=== PATIENT | female | born 1965 | race Caucasian/White ===

== ENCOUNTER 2022-11-04 10:36 | Outpatient (RCR) | payer OTHER, SELFPAY | END 2022-12-01 15:28 | disposition home or self-care (01) | LOC: PT 10:36 | PROVIDERS: PCP Internal Medicine; Visit Provider Internal Medicine | DX: M25.519 Pain in unspecified shoulder (principal) | CPT/HCPCS: 20560; 20561; 97010; 97012; 97110; 97140; 97162; G0283 ==

== ENCOUNTER 2023-08-26 10:16 | Outpatient (OUT) | payer OTHER, SELFPAY ==
[2023-08-26 10:27] LABS: Basophils Absolute Auto 0.1 10^3/uL (0.0-0.1); Basophils Percent Auto 1.4 % (0.2-2.0); Eosinophils Absolute Auto 0.1 10^3/uL (0.0-0.7); Eosinophils Percent Auto 1.4 % (0.9-7.0); Hematocrit 39.5 % (36.0-48.0); Hemoglobin 13.2 g/dL (12.0-16.0); Lymphocytes Absolute Auto 2.1 10^3/uL (1.2-3.8); Lymphocytes Percent Auto 49.8 % (20.5-60.0); Mean Corpuscular HGB Conc 33.4 g/dL (29.9-35.2); Mean Corpuscular Hemoglobin 31.7 pg (26.7-34.0); Mean Platelet Volume 8.9 fL (9.5-13.5); Monocytes Absolute Auto 0.4 10^3/uL (0.3-0.8); Monocytes Percent Auto 9.4 % (1.7-12.0); Neutrophils Absolute Auto 1.6 10^3/uL (1.4-6.5); Platelet Count 248 10^3/uL (150-450); Red Blood Count 4.16 10^6/uL (4.20-5.40); Red Cell Distribution Width 11.9 % (11.0-15.0); White Blood Count 4.2 10^3/uL (4.0-11.0)
[2023-08-26 10:44] LABS: Alanine Aminotransferase 23 U/L (14-59); Albumin Globulin Ratio 1.3; Alkaline Phosphatase 68 U/L (46-116); Anion Gap 12.6; Aspartate Amino Transferase 16 U/L (15-37); BUN Creatinine Ratio 19.6; Bilirubin Total 0.5 mg/dL (0.2-1.0); Calcium 9.8 mg/dL (8.5-10.1); Carbon Dioxide 30.8 mmol/L (21.0-32.0); Chloride 102 mmol/L (98-107); Cholesterol 261 mg/dL (<=200); Estimated GFR (African America >60 (>=60); Estimated GFR (Non-African Ame 59 (>=60); Globulin 3.1 g/dL; Glucose 82 mg/dL (74-106); HDL Cholesterol 132 mg/dL (40-60); Potassium 4.4 mmol/L (3.5-5.1); Sodium 141 mmol/L (136-145); Total Protein 7.1 g/dL (6.4-8.2); Triglycerides 44 mg/dL (<=150); VLDL CHOLESTEROL 8.8 mg/dL
== END 2023-08-26 10:17 | disposition home or self-care (01) ==
LOC: LAB 10:16
PROVIDERS: PCP Internal Medicine; Visit Provider Internal Medicine
DX: Z00.00 Encounter for general adult medical examination without abnormal findings (principal)
CPT/HCPCS: 36415; 80053; 80061; 85025

== ENCOUNTER 2023-12-22 12:12 | Outpatient (RCR) | payer OTHER, SELFPAY | END 2023-12-22 15:26 | disposition home or self-care (01) | LOC: PT 12:12 | PROVIDERS: PCP Internal Medicine; Visit Provider Anesthesiology | DX: M54.50 Low back pain, unspecified (principal) | CPT/HCPCS: 97110; 97140; 97162 ==

== ENCOUNTER 2025-02-14 07:32 | Outpatient (OUT) | payer OTHER, SELFPAY ==
--- OUTSIDE RECORDS SUMMARY | 2025-02-14 07:34 | XMS_ITS | Encounter Summary ---
Author Organization [facility] Address [address] [place] [address] Care Team Providers Care Editor Publications Name Role Phone Heath Jacob DO Primary Care Provider [phone] Heath Jacob DO Primary Care Provider [phone] Encounter Details Date Type Department Care Team (Late Contact Info) Description 05/03/2023 Abstract [facility] [address] [facility] [address] [place] [id number] Blanche Vu DO [address] [facility] [address] [place] [address] Social History Tobacco Use Types Packs/Day Years Used Date Smoking Tobacco: Never Smokeless Tobacco: Never Alcohol Use Standard Drinks/Week Comments Yes 0 (1 standard drink = 0.6 oz pure alcohol) caffeine: 1-2 cups per day coffee AUDIT-C Answer Date Recorded Q1: How often do you have a drink containing alc ohol? 2-4 times a month 04/29/2023 Q2: How many drinks containi ng alcohol do you have on a typical day when you are drinking? 1 or 2 04/29/2023 Q3: How often do you have si x or more drinks on one occasion? Never 04/29/2023 Comments Unknown Sex and Gender Information Value Date Recorded Sex Assigned at Not on file Legal Sex Female 6:39 PM EDT Gender Identity Not on file Sexual Orientation Not on file documented as of this encounter Plan of Treatment Upcoming Encounters Date Type Department Care Team (Late Contact Info) Description 03/03/2025 8:00 AM EDT Office Visit [facility] [address] [place] [address] [address] [place] [address] Filiberto Blue MD [address] [place] [address] 05/22/2025 3:15 PM EST Office Visit [facility] [address] [place] [id number] Blanche Vu DO [address] [place] [address] documented as of this encounter Visit Diagnoses Not on filedocumented in this encounter Care Teams Editor Publications Relationship Specialty Start Date End Date Heath Jacob DO PCP - General Internal Medicine 05/12/23 12/01/24 Heath Jacob DO [address] [place] [address] PCP - General Internal Medicine 12/02/24 documented as of this encounter
--- OUTSIDE RECORDS SUMMARY | 2025-02-14 07:34 | XMS_ITS | Clinical Summary ---
Author Organization [facility] Address [address] [facility] [address], [address] [place] [address] Care Team Providers Care Rn Anesthesiology Name Role Phone Heath Jacob DO Primary Care Provider [phone] Allergies Active Allergy Reactions Criticality Noted Date Comments Other 03/13/2020 MULTIPLE TOPICAL CREAMS Sulfa Antibiotics 03/13/2020 Medications ALPRAZolam (XANAX) 1 MG tablet Take 1 mg by mouth nightly as needed for Sleep. Active venlafaxine (EFFEXOR) 75 MG tablet Take 75 mg by mouth 3 times daily Active liothyronine (CYTOMEL) 5 MCG tablet Take 5 mcg by mouth daily Active Family History Medical History Relation Name Comments Arthritis Father Cancer Father Coronary Art Dis Father Diabetes Father Heart Disease Father High Blood Pressure Father Arthritis Mother Cancer Mother Relation Name Status Comments Father Mother Social History Tobacco Use Types Packs/Day Years Used Date Smoking Tobacco: Never Assessed Smokeless Tobacco: Never Comments Unknown Sex and Gender Information Value Date Recorded Sex Assigned at Not on file Legal Sex Female 10:24 AM EDT Gender Identity Not on file Sexual Orientation Not on file Last Filed Vital Signs Vital Sign Reading Time Taken Comments Blood Pressure - - Pulse - - Temperature 36.2 C (97.1 F) 06/12/2020 3:47 PM EST Respiratory Rate - - Oxygen Saturation - - Inhaled Oxygen Concentration - - Weight 54.4 kg (120 lb) 06/12/2020 3:47 PM EST Height 162.6 cm (5' 4 ) 06/12/2020 3:47 PM EST Body Mass Index 20.6 06/12/2020 3:47 PM EST Plan of Treatment Not on file Care Teams Rn Anesthesiology Relationship Specialty Start Date End Date Heath Jacob DO PCP - General Internal Medicine 03/13/20
--- OUTSIDE RECORDS SUMMARY | 2025-02-14 07:34 | XMS_ITS | CCD ---
Author Organization [facility] Team Providers Care Senior Benefits Manager Name Role Phone Mana Patino Unavailable Daly Kline Unavailable HEATH JACOB Primary Care Physician Heath Jacob Unavailable NOHEMI, DR ROWE Primary Care Unavailable NOHEMI, DR ROWE Admitting Unavailable BALL, DR ROWE Attending Unavailable BALL, DR ROWE Primary Care Unavailable BALL, DR ROWE Admitting Unavailable BALL, DR ROWE Attending Unavailable BALL, DR ROWE Consulting Unavailable ZIEBER, DR JOHNNY Mccabe Consulting Unavailable NOHEMI, DR RWOE Admitting Unavailable BALL, DR ROWE Attending Unavailable BALL, DR ROWE Consulting Unavailable BALL, DR ROWE Primary Care Unavailable BALL, DR ROWE Primary Care Unavailable BALL, DR ROWE Admitting Unavailable BALL, DR ROWE Attending Unavailable BALL, DR ROWE Consulting Unavailable NOHEMI, DR ROWE Primary Care Unavailable NGA, BLANCHE Admitting Unavailable RINNICKO, BLANCHE Attending Unavailable RINNICKO, BLANCHE Consulting Unavailable WILL, LEONARD Admitting Unavailable BALL, DR ROWE Primary Care Unavailable WILL, LEONARD Attending Unavailable WILL, LEONARD Consulting Unavailable NOHEMI, DR ROWE Primary Care Unavailable NOHEMI, DR ROWE Admitting Unavailable BALL, DR ROWE Attending Unavailable BALL, DR ROWE Consulting Unavailable Tyson Delgado Unavailable DO Heath Jacob Primary Care Provider MD Tyson Delgado Attending Provider DO Heath Jacob Primary Care Provider MD Tyson Delgado Attending Provider Heath Jacob Primary Care Unavailable Tyson Delgado Admitting Unavailable Tyson Delgado Attending Unavailable Tyson Delgado Admitting Unavailable Tyson Delgado Attending Unavailable Heath Jacob Primary Care Unavailable NohemiHeath Primary Care Unavailable Tyson Delgado Admitting Unavailable Tyson Delgado Attending Unavailable Heath Jacob DO Primary Care Provider Heath Jacob DO Primary Care Provider BLANCHE VU Referring Unavailable FILIBERTO AYALA Attending Unavailable FILIBERTO AYALA Attending Unavailable Heath Jacob DO Primary Care Provider Heath Jacob DO Attending Provider Soumya Berumen APRN Attending Provider Allergies Allergy Classification Reported Allergen(s) Allergy Type Date of Onset Reaction(s) Facility (20 sources) Diclofenac Drug Allergy 05-08-20 23 [facility] (20 sources) Sulfamethoxazole / Trimethoprim; Translations: [sulfamethoxazole-t rimethoprim] Drug Allergy 02-07-20 15 [facility] Other (2 sources) Adhesive bandage Drug allergy (disorder) 02-01-[address] [facility] (2 sources) Gluten Drug allergy (disorder) 02-01-[address] [facility] (2 sources) Sulfamethoxazole / Trimethoprim Drug Allergy 02-01-[address] [facility] (8 sources) patient allergy list reviewed by nurse or physicia Propensity to adverse reactions 01-05-20 19 Comment:[facility] Other (14 sources) Substance with sulfonamide structure and antibacterial mechanism of action (substance) Drug allergy 03-13-20 20 [facility] Other (9 sources) corn extract; Translations: [corn] Drug Allergy 05-07-20 21 Unknown Reaction [facility] (9 sources) Sulfamethoxazole; Translations: [sulfamethoxazole] Drug Allergy 05-07-20 21 [facility] (9 sources) Trimethoprim; Translations: [trimethoprim] Drug Allergy 05-07-20 21 [facility] (15 sources) Wheat preparation; Translations: [wheat] Drug Allergy 05-07-20 21 [facility] (9 sources) bee venom protein (honey bee); Translations: [bee venom protein (honey bee)] Allergy to substance 05-07-20 21 swelling & pain [facility] (1 source) Diclofenac Drug Allergy 06-09-19 [facility] (6 sources) Sulfonamides (Antibiotic) Drug allergy (disorder) 06-09-19 Unknown Reaction [facility] (6 sources) celecoxib Drug Allergy 03-29-20 05 [facility] (6 sources) [place] Drug Allergy 05-08-20 Other [facility] (6 sources) Latex Propensity to adverse reactions 03-29-20 05 [facility] (6 sources) nabumetone Drug Allergy 05-08-20 GI intolerance [facility] (6 sources) Other Allergy to substance 05-08-20 Other [facility] Medications Current Medications Medication Drug Class(es) Dates Sig (Normalized) Sig (Original) [id number] 200 actuat albuterol 0.09 mg/actuat metered dose inhaler (7 sources) beta2-Adrenergic Agonist Start: 05-21-2021 take 2 puff(s) by inhalation four times daily as needed Albuterol Sulfate HFA 108 (90 Base) MCG/ACT 2 puffs Inhalation qid prn May, Active amoxicillin 500 mg oral capsule (6 sources) Penicillin-class Antibacterial Start: 06-08-2022 take 1 capsule by mouth every eight hours Amoxicillin 500 MG 1 capsule Orally three times a day for 10 day(s) Jun, Active bimatoprost 0.3 mg/ml ophthalmic solution (20 sources) Prostaglandin Analog Start: 07-15-2022 take 1 drop(s) into the eye(s) once daily in the evening Start: 07-15-2022 take 1 drop(s) into the eye(s) once daily in the evening Start: 07-15-2022 take 1 drop(s) into the eye(s) once daily in the evening Start: 05-07-2021 End: 10-04-2023 take 0.03 drop(s) into the eye(s) once daily at bedtime Bimatoprost 0.03 % drops Discontinued 1 DROPS EYE-BOTH Daily at bedtime May 07, 2021 1:00am October 04, 2023 6:40pm Start: 05-07-2021 End: 10-04-2023 take 0.03 drop(s) into the eye(s) once daily at bedtime Bimatoprost 0.03 % drops Discontinued 1 DROPS EYE-BOTH Daily at bedtime May 07, 2021 1:00am October 04, 2023 6:40pm Start: 05-07-2021 End: 10-04-2023 take 1 drop(s) into the eye(s) once daily at bedtime Bimatoprost Discontinued 1 DROPS EYE-BOTH Daily at bedtime May 07, 2021 1:00am October 04, 2023 6:40pm calcium carbonate 1500 mg oral tablet (8 sources) Start: 05-07-2021 Calcium Carbonate (Calcium 600) 600 mg calcium (1,500 mg) Tablet Active 1200 MG PO Twice daily May 07, 2021 1:00am Complies with drug therapy DIGESTIVE ENZYMES PO (5 sources) take 1 capsule by mouth in the morning DIGESTIVE ENZYMES PO Take 1 capsule by mouth in the morning and 1 capsule before bedtime. Active escitalopram 10 mg oral tablet (2 sources) Serotonin Reuptake Inhibitor take 1 tablet by mouth every twenty-four hours Lexapro 10 MG 1 tablet Orally Once a day Active Estradiol (4 sources) Estrogen Start: 12-01-2021 estradiol Refills(s) 0 Start Date: 12/01/21 Status: Ordered End: 09-26-2024 estradiol (Estrace) 1 MG tab let 1 (one) time each day at the same time 09/26/2024 Discontinued (Med list cleanup) Hormone Cream Base (HRT Crea m) cream (5 sources) End: 12-02-2024 Hormone Cream Base (HRT Crea m) cream 1 Application Daily 12/02/2024 Discontinued (Med list cleanup) Hormone Cream Ba se (HRT Cream) cream 1 Application Daily Active Hormone Cream Base - (9 sources) Hormone Cream Ba se - as directed Active liothyronine sodium 0.005 mg oral tablet (12 sources) l-Triiodothyron ine Start: 12-02-2024 liothyronine (Cytomel) 5 MCG tablet Indications: Euthyroid sick syndrome Take 1 tablet in AM and 1 tablet in PM on an empty stomach. CORBY; Sigma or Greenstone brands only 180 tablet 12/02/2024 Active Start: 12-02-2024 liothyronine ( Cytomel) 5 MCG tablet Indications: Euthyroid sick syndrome Take 1 tablet in AM and 1 tablet in PM on an empty stomach. CORBY; Sigma or Greenstone brands only 180 tablet 12/02/2024 Active Start: 01-25-2019 End: 09-26-2024 take 1 tablet by mouth twice daily Liothyronine 5 mcg tablet Discontinued 5 MCG PO Twice daily January 25, 2019 12:00am May 07, 2021 6:13pm meloxicam 15 mg oral tablet (2 sources) Nonsteroidal Anti-inflammatory Drug Start: 09-21-2020 take 1 tablet by mouth every twenty-four hours Meloxicam 15 MG 1 tablet Orally Once a day for 30 day(s) Sep, Active Multivitamin preparation (6 sources) Start: 05-07-2021 take 1 tablet by mouth twice daily Multivitamin Active 1 TAB PO Twice daily May 07, 2021 12:00am Start: 05-07-2021 take 1 tablet by caterina th twice daily Multivitamin Active 1 TAB PO Twice daily May 07, 2021 1:00am Multivitamin Tablet (2 sources) Start: 05-07-2021 take 1 tablet by mouth twice daily Multivitamin Tablet Active 1 TAB PO Twice daily May 07, 2021 1:00am Complies with drug therapy Start: 05-07-2021 take 1 tablet by caterina th twice daily Multivitamin Tablet Active 1 TAB PO Twice daily May 07, 2021 1:00am paxlovid (300/100) 20 x 150 mg & 10 x 100mg tablet therapy pack (3 sources) Start: 06-09-2023 Paxlovid (300/ 100) 20 x 150 MG & 10 x 100MG as directed Orally bid for 5 days Jun, Active predniSONE 20 mg oral tablet (20 sources) Start: 02-03-2025 Prednisone 20 mg tablet Active 0 PO Daily February 03, 2025 12:00am Take 3 tabs x 3 days, 2 tabs x 3 days, 1 tab x 3 days orally daily; Complies with drug therapy Start: 09-15-2022 predniSONE 20 MG 1 tablet Orally tid w/ food x 3 days, then bid w/ food x 3 days, then qd w/ food x 3 days for 9 Sep, Not-Taking/PRN Start: 06-08-2022 take 1 tablet by caterina th every twelve hours predniSONE 20 MG 1 tablet Orally 2 times a day for 5 day(s) Jun, Not-Taking/PRN Start: 05-21-2021 take 1 tablet by caterina th every twelve hours predniSONE 20 MG 1 tablet Orally bid for 5 day(s) May, Active Probiotic Product (PROBIOTIC ADVANCED PO) (5 sources) take 1 capsule by mouth once daily Probiotic Product (PROBIOTIC ADVANCED PO) Take 1 capsule by mouth Daily Active 24 hr venlafaxine 37.5 mg extended release oral capsule (20 sources) Serotonin and Norepinephrine Reuptake Inhibitor Start: 05-03-20 End: 12-10-19 take 1 capsule by mouth once daily Venlafaxine 75 mg capsule,extended release 24hr Active 0 .ROUTE .COMPLEX December 09, 2024 8:39am TAKE ONE CAPSULE BY MOUTH ONCE DAILY Complies with drug therapy Start: 05-03-2024 take 1 capsule by mo uth once daily Venlafaxine 75 mg capsule,extended release 24hr Active 0 .ROUTE .COMPLEX May 03, 2024 10:50am TAKE ONE CAPSULE BY MOUTH ONCE DAILY Start: 03-22-2024 End: 12-09-2024 take 1 capsule by mouth once daily in the evening Venlafaxine 37.5 mg capsule,extended release 24hr Active 0 .ROUTE .COMPLEX December 09, 2024 8:39am TAKE ONE CAPSULE BY MOUTH EVERY EVENING Complies with drug therapy Start: 03-22-2024 take 1 capsule by mo uth once daily in the evening Venlafaxine 37.5 mg capsule,extended release 24hr Active 0 .ROUTE .COMPLEX March 22, 2024 10:17am TAKE ONE CAPSULE BY MOUTH EVERY EVENING Start: 05-07-2021 End: 03-22-2024 take 1 capsule by mouth once daily in the evening Venlafaxine 37.5 mg capsule,extended release 24hr Discontinued 37.5 MG PO Every evening September 25, 2023 1:44pm March 22, 2024 10:17am Start: 05-07-2021 End: 05-03-2024 take 1 capsule by mouth once daily in the morning Venlafaxine 75 mg capsule,extended release 24hr Discontinued 75 MG PO Every morning May 07, 2021 1:00am May 03, 2024 10:50am take 1 tablet by caterina th every twenty-four hours Venlafaxine HCl 37.5 MG 1 tablet with food Orally Once a day Active Venlafaxine HCl Active Vevye 0.1 % solution (2 sources) Start: 11-18-2024 Vevye 0.1 % so lution INSTILL ONE DROP IN BOTH EYES TWICE DAILYAPPROXIMATELY 12 HOURS APART 11/18/2024 Active Completed/Discontinued Medications Medication Drug Class(es) Dates Sig (Normalized) Sig (Original) acetaminophen 325 mg oral capsule (20 sources) take 1 capsule by mouth every six hours Tylenol 325 MG 1 capsule as needed Orally every 6 hrs Not-Taking/PRN ALPRAZolam 1 mg oral tablet (20 sources) Benzodiazepine Start: 01-25-2019 End: 07-26-2023 take 1 tablet by mouth once daily at bedtime Alprazolam 1 mg tablet Discontinued 1 MG PO Daily at bedtime 0 February 08, 2019 7:01am July 26, 2023 1:03pm Start: 03-17-2017 End: 11-15-2024 take 1 tablet by mouth twice daily Alprazolam 1 mg tablet Discontinued 1 MG PO Twice daily July 26, 2023 12:58pm December 12, 2023 8:51am Start: 03-17-2017 End: 01-25-2019 Alprazolam 1 mg tablet Disco ntinued March 17, 2017 12:00am January 25, 2019 11:10am Start: 07-28-2014 take 1 tablet by caterina th once daily as needed for sleep Xanax 0.5 mg Tab 0.5 mg = 1 tab(s), Oral, Daily, PRN Sleep, Refills(s) 0 Start Date: 07/28/14 Status: Ordered azithromycin 250 mg oral tablet (3 sources) Macrolide Antimicrobial Start: 10-04-2023 End: 12-15-2023 Azithromycin 250 mg tablet Discontinued 0 PO .COMPLEX October 04, 2023 12:00am December 15, 2023 10:36am For 250 mg dose pack: take 500 mg today (day 1), then 250 mg for 4 days (days 2-5) PO Start: 10-04-2023 End: 12-15-2023 Azithromycin Discontinued 0 PO .COMPLEX October 04, 2023 12:00am December 15, 2023 10:36am For 250 mg dose pack: take 500 mg today (day 1), then 250 mg for 4 days (days 2-5) PO benzonatate 200 mg oral capsule (3 sources) Non-narcotic Antitussive Start: 10-04-2023 End: 12-15-2023 take 1 capsule by mouth three times daily as needed for cough Benzonatate 200 mg capsule Discontinued 200 MG PO Three times daily as needed for cough 30 October 04, 2023 12:00am December 15, 2023 10:36am Bioidentical Progesterone Crea (8 sources) Start: 01-25-2019 End: 05-07-2021 Bioidentical Progesterone Crea Discontinued 1 APPLIC TOPICAL Daily at bedtime January 24, 2019 11:00pm May 07, 2021 5:16pm Start: 01-25-2019 End: 05-07-2021 Bioidentical Progesterone Cr ea Discontinued 1 APPLIC TOPICAL Daily at bedtime January 25, 2019 12:00am May 07, 2021 6:16pm celecoxib 200 mg oral capsule (10 sources) Nonsteroidal Anti-inflammatory Drug Start: 07-26-2023 End: 07-28-2023 take 1 capsule by mouth once daily Celecoxib 200 mg capsule Discontinued 200 MG PO Daily July 26, 2023 1:00am July 28, 2023 10:11am Start: 05-24-2023 take 1 capsule by [facility] every twenty-four hours Celecoxib 200 MG 1 capsule with food Orally Once a day for 30 days G89.29 Chronic pain May, Active citalopram 40 mg oral tablet (8 sources) Serotonin Reuptake Inhibitor Start: 01-25-2019 End: 05-07-2021 take 1 tablet by mouth once daily at bedtime Citalopram 40 mg tablet Discontinued 40 MG PO Daily at bedtime January 25, 2019 12:00am May 07, 2021 6:14pm diflorasone diacetate 0.0005 mg/mg topical ointment (8 sources) Corticosteroid Start: 07-28-2023 End: 02-03-2025 Diflorasone 0.05 % ointment Discontinued 1 APPLIC TOPICAL Twice daily 60 90 August 09, 2023 4:10pm February 03, 2025 1:58pm docusate sodium 100 mg oral capsule (8 sources) Start: 02-08-2019 End: 05-07-2021 take 1 capsule by mouth twice daily as needed for constipation Docusate Sodium (Colace) 100 mg capsule Discontinued 100 MG PO Twice daily as needed for constipation February 08, 2019 6:59am May 07, 2021 6:13pm etodolac 400 mg oral tablet (13 sources) Nonsteroidal Anti-inflammatory Drug Start: 09-15-2022 take 1 tablet by mouth every twelve hours Etodolac 400 MG 1 tablet with food Orally Twice a day Sep, Not-Taking/PRN fluconazole 150 mg oral tablet (20 sources) Azole Antifungal Start: 10-04-2023 End: 11-15-2024 Fluconazole 150 mg tablet Discontinued 150 MG PO Q3D 2 0 October 04, 2023 12:00am November 15, 2024 12:03pm october repeat x 1 in 3 days if needed Start: 06-08-2022 Diflucan 150 M G 1 tablet Orally once for 2 days Take the first tablet at the onset of symptoms of yeast infection. Take the second tablet in 3 days Jun, Not-Taking/PRN glucosamine sulfate 500 mg oral capsule (2 sources) End: 09-26-2024 Glucosamine 500 MG capsule Glucosamine 09/26/2024 Discontinued (Med list cleanup) ibuprofen 600 mg oral tablet (20 sources) Nonsteroidal Anti-inflammatory Drug Start: 05-11-2021 End: 07-26-2023 take 1 tablet by mouth every six hours as needed for pain Ibuprofen 600 mg tablet Discontinued 600 MG PO Q6H as needed for pain May 11, 2021 1:00am July 26, 2023 1:03pm Start: 02-08-2019 End: 05-07-2021 take 1 tablet by mouth every six hours as needed for pain Ibuprofen 600 mg tablet Discontinued 600 MG PO Q6H as needed for pain February 08, 2019 12:00am May 07, 2021 6:13pm take 1 tablet by caterina th three times daily at mealtime as needed Ibuprofen 400 MG 1 tablet with food or milk as needed Orally Three times a day Active L. Acidophilus-L. Rhamnosus (Digestive Health Probiotic) 10 billion cell Capsule (8 sources) Start: 05-07-2021 End: 07-26-2023 take 1 capsule by mouth twice daily L. Acidophilus-L. Rhamnosus (Digestive Health Probiotic) 10 billion cell Capsule Discontinued 1 CAP PO Twice daily May 07, 2021 1:00am July 26, 2023 1:02pm Start: 05-07-2021 End: 07-26-2023 take 1 capsule by mouth twice daily L. Acidophilus-L. Rhamnosus (Digestive Health Probiotic) 10 billion cell Capsule Discontinued 1 CAP PO Twice daily May 07, 2021 12:00am July 26, 2023 12:02pm Start: 05-07-2021 take 1 capsule by mo uth twice daily L. Acidophilus-L. Rhamnosus (Digestive Health Probiotic) 10 billion cell Capsule Active 1 CAP PO Twice daily May 07, 2021 12:00am Start: 05-07-2021 take 1 capsule by mo uth twice daily L. Acidophilus-L. Rhamnosus (Digestive Health Probiotic) 10 billion cell Capsule Active 1 CAP PO Twice daily May 07, 2021 1:00am levothyroxine sodium 0.025 mg oral tablet (20 sources) l-Thyroxine Start: 05-04-2023 End: 11-15-2024 take 1 tablet by mouth once daily Levothyroxine 25 mcg tablet Discontinued 25 MCG PO Daily 90 90 July 28, 2023 6:22pm November 15, 2024 12:03pm take 1 tablet by [facility] once daily in the morning Levothyroxine Sodium 25 MCG 1 tablet in the morning on an empty stomach Orally Once a day Active Lidocaine (10 sources) Antiarrhythmic, Amide Local Anesthetic Start: 11-28-2022 Lidocaine Nov, 20 mg magnesium oxide 500 mg oral capsule (4 sources) Start: 10-02-2024 End: 10-02-2024 Magnesium 500 MG capsule 1 (one) time each day at the same time 10/02/2024 10/02/2024 End: 09-26-2024 Magnesium 500 MG capsule 1 ( one) time each day at the same time 09/26/2024 Discontinued (Med list cleanup) Misc Natural Products (ESTROVEN + ENERGY MAX STRENGTH PO) (2 sources) End: 09-26-2024 Misc Natural Products (ESTRO EMANUEL + ENERGY MAX STRENGTH PO) Estroven 09/26/2024 Discontinued (Med list cleanup) Multiple Vitamins-Minerals (MULTI COMPLETE PO) (4 sources) Start: 10-02-2024 End: 10-02-2024 Multiple Vitamins-Minerals ( MULTI COMPLETE PO) Multi Complete 10/02/2024 10/02/2024 End: 09-26-2024 Multiple Vitamins-Minerals ( MULTI COMPLETE PO) Multi Complete 09/26/2024 Discontinued (Med list cleanup) prasterone 6.5 mg vaginal insert (1 source) Start: 05-07-2021 End: 10-04-2023 Prasterone (Dhea) (Intrarosa ) 6.5 mg insert Discontinued 6.5 MG VAGINAL Daily at bedtime May 07, 2021 1:00am October 04, 2023 6:40pm Prasterone (Dhea) (Intrarosa ) 6.5 mg insert (7 sources) Start: 05-07-2021 End: 10-04-2023 Prasterone (Dhea) (Intrarosa ) 6.5 mg insert Discontinued 6.5 MG VAGINAL Daily at bedtime May 07, 2021 1:00am October 04, 2023 6:40pm Start: 05-07-2021 Prasterone (Dh ea) (Intrarosa) 6.5 mg insert Active 6.5 MG VAGINAL Daily at bedtime May 07, 2021 12:00am Start: 05-07-2021 Prasterone (Dh ea) (Intrarosa) 6.5 mg insert Active 6.5 MG VAGINAL Daily at bedtime May 07, 2021 1:00am pyridoxine hydrochloride 25 mg oral tablet (8 sources) Start: 05-07-2021 End: 02-03-2025 take 1 tablet by mouth twice daily Pyridoxine (Vitamin B6) (Vitamin B-6) 25 mg Tablet Discontinued 25 MG PO Twice daily May 07, 2021 1:00am February 03, 2025 1:58pm Sod Picosulf-Mag Ox-Citric Ac (1 source) Start: 01-29-2025 End: 02-03-2025 Sod Picosulf-Mag Ox-Citric Ac (Clenpiq) 10 mg-3.5 gram- 12 gram/175 mL solution Discontinued 175 ML PO .COMPLEX 350 January 29, 2025 12:00am February 03, 2025 1:58pm Follow instructions given by office traMADol hydrochloride 50 mg oral tablet (16 sources) Opioid Agonist Start: 05-11-2021 End: 07-26-2023 take 1 tablet by mouth every six hours as needed for pain Tramadol 50 mg tablet Discontinued 50 MG PO Q6H as needed for pain 22 12May 11, 2021 1:00am July 26, 2023 1:02pm Start: 02-08-2019 End: 05-07-2021 take 1 tablet by mouth every four to six hours as needed for pain Tramadol 50 mg tablet Discontinued 50 MG PO EVERY 4-6 HOURS as needed for pain 01 01February 08, 2019 12:00am May 07, 2021 6:13pm tretinoin 0.5 mg/ml topical lotion (4 sources) Retinoid Start: 10-02-2024 End: 10-02-2024 Tretinoin (Altreno) 0.05 % lotion Indications: Rhytides Apply thin layer to face at bedtime 45 g 11 10/02/2024 10/02/2024 Start: 05-08-2023 End: 09-26-2024 Tretinoin (Altreno) 0.05 % l otion Indications: Rhytides Apply thin layer to face at bedtime 45 g 11 05/08/2023 09/26/2024 Discontinued (Med list cleanup) triamcinolone acetonide 40 mg/ml injectable suspension (20 sources) Corticosteroid Start: 09-15-2022 Triamcinolone Acetonide 0.5 % 1 application Externally Twice a day for 30 days Sep, Not-Taking/PRN Start: 07-22-2022 Kenalog-40 Feb, 40 mg Start: 04-02-2020 Kenalog -40 mg Mar, 60 mg Triamcinolone Ac etonide 0.5 % 1 application Externally Two times a Week Not-Taking/PRN Triamcinolone Ac etonide 0.5 % 1 application Externally Two times a Week Not-Taking vitamin b6 100 mg oral tablet (5 sources) take 1 tablet by caterina th every twenty-four hours Vitamin B6 100 MG 1 tablet Orally Once a day Not-Taking/PRN Vitamin B6 100 MG (16 sources) take 1 tablet by caterina th once daily Vitamin B6 100 MG 1 tablet Orally Once a day Not-Taking take 1 tablet by mouth once dwayne y Vitamin B6 100 MG 1 tablet Orally Once a day Active Problems Active Problems Problem Classification Problem Date Documented Da te Episodic/Chronic Abdominal pain (8 sources) Epigastric pain; Translations: [Epigastric pain] Episodic Acute bronchitis (8 sources) Acute bronchitis; Translations: [Acute bronchitis due to other specified organisms] Episodic Adjustment disorders (6 sources) Stress; Translations: [Reaction to severe stress, unspecified] Onset: 09-26-2024 09-26-2024 Chronic Alcohol-related disorders (13 sources) Alcohol abuse; Translations: [Alcohol abuse, uncomplicated] Chronic Allergic reactions (20 sources) Allergic contact dermatitis caused by chemical; Translations: [Allergic contact dermatitis due to other chemical products] Onset: 12-08-2014 10-02-2024 Episodic Anxiety disorders (20 sources) Generalized anxiety disorder; Translations: [Generalized anxiety disorder] Chronic Asthma (20 sources) Mild intermittent asthma; Translations: [Mild intermittent asthma, uncomplicated] Chronic Calculus of urinary tract (3 sources) Kidney stone; Translations: [Calculus of kidney] Onset: 12-01-2021 Episodic Chronic obstructive pulmonary disease and bronchiectasis (1 source) Bronchitis, not specified as acute or chronic Episodic Esophageal disorders (8 sources) Esophageal reflux finding; Translations: [Esophageal reflux] Onset: 08-29-2014 Chronic Genitourinary symptoms and ill-defined conditions (20 sources) Microscopic hematuria; Translations: [Asymptomatic microscopic hematuria] Onset: 12-01-2021 Resolved: 12-14-2020 Episodic Headache; including migraine (20 sources) Chronic migraine without aura, non-refractory; Translations: [Migraine without aura, not intractable, without status migrainosus] 07-26-2023 Chronic Heart valve disorders (10 sources) Cardiac murmur, unspecified; Translations: [O/E - cardiac murmur] Onset: 02-28-2022 Episodic Immunizations and screening for infectious disease (10 sources) Contact with and (suspected) exposure to other viral communicable diseases; Translations: [Vaccination given] Onset: 03-22-2021 Resolved: 05-21-2021 Episodic Malaise and fatigue (7 sources) Fatigue; Translations: [Chronic fatigue, unspecified] Onset: 11-25-2024 10-02-2024 Chronic Menopausal disorders (20 sources) Menopausal and female climacteric states; Translations: [Menopause present] Onset: 06-12-2015 Chronic Mood disorders (20 sources) Mild recurrent major depression; Translations: [Major depressive disorder, recurrent, mild] Onset: 10-26-2018 07-26-2023 Chronic Neoplasms of unspecified nature or uncertain behavior (20 sources) Neoplastic disease; Translations: [Neoplasm of unspecified behavior of bone, soft tissue, and skin] Episodic Noninfectious gastroenteritis (2 sources) Inflammatory bowel disease; Translations: [Other specified noninfective gastroenteritis and colitis] 10-02-2024 Episodic Nonmalignant breast conditions (8 sources) Fibrocystic disease of breast; Translations: [Diffuse cystic mastopathy of unspecified breast] Chronic Nonspecific chest pain (12 sources) Chest pain, unspecified; Translations: [Chest pain] Onset: 02-24-2022 Episodic Osteoarthritis (20 sources) Osteoarthritis; Translations: [Unspecified osteoarthritis, unspecified site] 12-01-2021 Chronic Other connective tissue disease (1 source) Other shoulder lesions, right shoulder Episodic Other connective tissue disease (14 sources) Enthesopathy of hip region; Translations: [Other bursitis of hip, left hip] Resolved: 12-27-2019 Episodic Other connective tissue disease (2 sources) Trochanteric bursitis, left hip Episodic Other connective tissue disease (3 sources) Trochanteric bursitis; Translations: [Trochanteric bursitis, left hip] 12-15-2023 Episodic Other connective tissue disease (6 sources) Posterior calcaneal exostosis; Translations: [Calcaneal spur, unspecified foot] Onset: 09-26-2024 09-26-2024 Episodic Other endocrine disorders (8 sources) Adrenal cortical hypofunction; Translations: [Unspecified adrenocortical insufficiency] Onset: 09-26-2024 09-26-2024 Chronic Other gastrointestinal disorders (8 sources) Celiac disease; Translations: [Celiac disease] Chronic Other gastrointestinal disorders (2 sources) Abdominal bloating; Translations: [Abdominal distension (gaseous)] 10-02-2024 Episodic Other lower respiratory disease (13 sources) Dyspnea on exertion; Translations: [Other forms of dyspnea] Episodic Other lower respiratory disease (8 sources) Dyspnea; Translations: [Other forms of dyspnea] Episodic Other nervous system disorders (20 sources) Chronic pain; Translations: [Other chronic pain] Onset: 09-26-2024 12-15-2023 Chronic Other nervous system disorders (20 sources) Bilateral carpal tunnel syndrome; Translations: [Carpal tunnel syndrome, bilateral upper limbs] 07-27-2023 Chronic Other nervous system disorders (20 sources) 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; Translations: [Lesion of ulnar nerve, bilateral upper limbs] Chronic Other nervous system disorders (5 sources) Other chronic pain; Translations: [Other chronic pain] Chronic Other nervous system disorders (8 sources) Mononeuritis; Translations: [Unspecified mononeuritis of lower limb] Onset: 11-08-2013 Chronic Other nervous system disorders (4 sources) Carpal tunnel syndrome; Translations: [Carpal tunnel syndrome, bilateral upper limbs] 07-27-2023 Chronic Other nervous system disorders (2 sources) Piriformis syndrome; Translations: [Lesion of sciatic nerve, left lower limb] 12-15-2023 Chronic Other nervous system disorders (1 source) Lesion of sciatic nerve, left lower limb; Translations: [Lesion of sciatic nerve] 12-15-2023 Chronic Other nervous system disorders (1 source) Left-sided piriformis syndrome; Translations: [Lesion of sciatic nerve, left lower limb] 12-15-2023 Chronic Other non-traumatic joint disorders (20 sources) Arthritis of hand; Translations: [Arthropathy, unspecified] Chronic Other non-traumatic joint disorders (20 sources) Shoulder pain; Translations: [Pain in unspecified shoulder] Episodic Other non-traumatic joint disorders (9 sources) Hip pain; Translations: [Pain in left hip] 12-15-2023 Episodic Other non-traumatic joint disorders (3 sources) Pain in left hip; Translations: [Pain in joint, pelvic region and thigh] Episodic Other screening for suspected conditions (not mental disorders or infectious disease) (19 sources) Blood chemistry abnormal; Translations: [Other specified abnormal findings of blood chemistry] Onset: 05-12-2018 Resolved: 09-13-2020 11-13-2024 Episodic Other skin disorders (1 source) Dyshidrosis [pompholyx] Episodic Other skin disorders (8 sources) Vesicular eczema of hands and/or feet; Translations: [Dyshidrosis [pompholyx]] Episodic Other skin disorders (8 sources) Alopecia; Translations: [Nonscarring hair loss, unspecified] Episodic Other skin disorders (5 sources) Vesicular eczema; Translations: [Dyshidrosis [pompholyx]] 07-26-2023 Episodic Other skin disorders (2 sources) Loss of hair; Translations: [Nonscarring hair loss, unspecified] 10-02-2024 Episodic Other skin disorders (2 sources) Wrinkled skin; Translations: [Other specified disorders of the skin and subcutaneous tissue] 10-14-2024 Episodic Other upper respiratory disease (19 sources) Seasonal allergy; Translations: [Other seasonal allergic rhinitis] Chronic Other upper respiratory disease (8 sources) Seasonal allergic rhinitis; Translations: [Other seasonal allergic rhinitis] Chronic Other upper respiratory infections (5 sources) Acute upper respiratory infection, unspecified; Translations: [Viral upper respiratory tract infection] Onset: 05-21-2021 Resolved: 05-21-2021 Episodic Otitis media and related conditions (1 source) Otitis media, unspecified, right ear Episodic Residual codes; unclassified (6 sources) Insomnia; Translations: [Other insomnia] Onset: 09-26-2024 09-26-2024 Chronic Residual codes; unclassified (8 sources) Requires influenza virus vaccination; Translations: [Need for prophylactic vaccination and inoculation, Influenza] Episodic Residual codes; unclassified (8 sources) History of laparoscopy; Translations: [Other specified postprocedural states] 05-11-2021 Episodic Comment on above: Problem List clean-u p per request of Phys. EHR Cmte Spondylosis; intervertebral disc disorders; other back problems (20 sources) Cervical disc disorder; Translations: [Cervical disc disorder, unspecified, unspecified cervical region] Onset: 01-09-2023 Chronic Spondylosis; intervertebral disc disorders; other back problems (19 sources) Thoracic and lumbosacral neuritis; Translations: [Thoracic or lumbosacral neuritis or radiculitis, unspecified] Onset: 03-09-2015 Episodic Sprains and strains (15 sources) Strain of muscle of left hip; Translations: [Strain of muscle, fascia and tendon of left hip, initial encounter] Onset: 10-26-2018 07-28-2023 Episodic Thyroid disorders (20 sources) Subclinical hypothyroidism; Translations: [Other specified hypothyroidism] Chronic Thyroid disorders (7 sources) Sick-euthyroid syndrome; Translations: [Sick-euthyroid syndrome] Onset: 11-25-2024 10-02-2024 Episodic Unclassified (2 sources) Asymptomatic microscopic hematuria 12-01-2021 Unclassified (1 source) Pain in left hip; Translations: [Pain in left hip] Onset: 05-05-2023 Unclassified (2 sources) Patient encounter status; Translations: [Z12.11 - Encounter for screening for malignant neoplasm of colon] Viral infection (9 sources) Disease caused by 2019-nCoV; Translations: [COVID-19] Past or Other Problems Problem Classification Problem Date Documented Da te Episodic/Chronic Acquired foot deformities (8 sources) Bunion; Translations: [Bunion] Onset: 05-12-2017 Episodic Administrative/social admission (4 sources) Encounter for pre-employment examination; Translations: [ENCOUNTER FOR PRE-EMPLOYMENT EXAM] Onset: 04-01-2022 Episodic Blindness and vision defects (8 sources) Visual impairment; Translations: [Unspecified visual loss] Resolved: 12-27-2019 Chronic Diseases of white blood cells (8 sources) Neutropenia; Translations: [Neutropenia, unspecified] Resolved: 09-13-2020 Chronic Hemorrhoids (8 sources) Residual hemorrhoidal skin tags; Translations: [Residual hemorrhoidal skin tags] Resolved: 12-14-2020 Episodic Joint disorders and dislocations; trauma-related (8 sources) Current tear of medial cartilage AND/OR meniscus of knee; Translations: [Other tear of cartilage or meniscus of knee, current] Onset: 11-10-2014 Episodic Other connective tissue disease (8 sources) Neuralgia; Translations: [Neuralgia and neuritis, unspecified] Onset: 10-05-2016 Episodic Other connective tissue disease (5 sources) Neuropathy; Translations: [Neuralgia and neuritis, unspecified] Onset: 10-05-2016 07-26-2023 Episodic Other endocrine disorders (4 sources) Endocrine disorder, unspecified; Translations: [ENDOCRINE DISORDER UNSPECIFIED] Onset: 08-06-2022 Episodic Other gastrointestinal disorders (8 sources) Heartburn; Translations: [Heartburn] Onset: 08-29-2014 Episodic Other lower respiratory disease (8 sources) Cough; Translations: [Cough, unspecified] Onset: 03-09-2015 Episodic Other non-traumatic joint disorders (3 sources) Pain in right shoulder; Translations: [Pain in right shoulder] Onset: 01-09-2023 Episodic Poisoning by nonmedicinal substances (8 sources) Toxic effect of venom; Translations: [Toxic effect of venom of bees, accidental (unintentional), initial encounter] Onset: 01-06-2019 Episodic Poisoning by other medications and drugs (8 sources) Poisoning by vitamin; Translations: [Poisoning by vitamins, accidental (unintentional), initial encounter] Resolved: 09-13-2020 Episodic Unclassified (1 source) Cough R05.9 Results Test Name Value Interpretation Reference Range Facility IRON AND TOTAL IRON BINDING CAPACITYon 11-17-2024 % SATURATION 36 % (calc) Normal 16-45 [facility] Comment on above: Order Comment: FASTI NG:NO FASTING: NO Performed By: #### [id number] #### [facility]/[place] [id number] [facility] [place], [place] Monkey Breeder: Ramirez Ureña M.D.,PhD #### [id number], [id number], [phone], [phone], [phone] #### [facility] [address], [address] [place] [address] Monkey Breeder: Chago Rodriguez MD IRON BINDING CAPACITY 326 mcg/dL (calc) Normal 250-450 [facility] Comment on above: Order Comment: FASTI NG:NO FASTING: NO Performed By: #### 9 [id number] #### [facility]/[address] [place], [place] Monkey Breeder: Ramirez Ureña M.D.,PhD #### [id number], [id number], [phone], [phone], 859 #### [facility] [address], [address] [place] [address] Monkey Breeder: Chago Rodriguez MD IRON, TOTAL 117 mcg/dL Normal 45-160 [facility] Comment on above: Order Comment: FASTI NG:NO FASTING: NO Performed By: #### [id number] #### [facility]/[address] [place], [place] Monkey Breeder: Ramirez Ureña M.D.,PhD #### [id number], [id number], [phone], [phone], 859 #### [facility] [place] [address] Monkey Breeder: Chago Rodriguez MD T3 REVERSE, LC/MS/MSon 11-17 T3 REVERSE, LC/MS/MS 15 ng/dL Normal 8-25 [facility] Comment on above: Result Comment: This test was developed and its analytical performance characteristics have been determined by [facility] [place], [place]. It has not been cleared or approved by the U.S. Food and Drug Administration. This assay has been validated pursuant to the CLIA regulations and is used for clinical purposes. Performed By: #### [id number] #### [facility]/[place] [id number] [facility] [place], [place] Monkey Breeder: Ramirez Ureña M.D.,PhD #### [id number], [id number], [phone], [phone], 859 #### [facility] [address], [address] [place] [address] Monkey Breeder: Cahgo Rodriguez MD T3, 11-17-2024 Free T3 [Mass/Vol] 2.8 pg/mL Normal 2.3-4.2 [facility] Comment on above: Performed By: #### 9 [id number] #### [facility]/[address] [place], [place] Monkey Breeder: Ramirez Ureña M.D.,PhD #### [id number], [id number], 899, 866, 859 #### [facility] [place] [address] Monkey Breeder: Chago Rodriguez MD T3, TOTAL11-17-2024 T3, TOTAL 82 ng/dL Normal 76-181 [facility] Comment on above: Performed By: #### 9 [id number] #### [facility]/[address] [place], [place] Monkey Breeder: Ramirez Ureña M.D.,PhD #### [id number], [id number], 899, 866, 859 #### [facility] [place] [address] Monkey Breeder: Chago Rodriguez MD T4, 11-17-2024 Free T4 [Mass/Vol] 1.3 ng/dL Normal 0.8-1.8 [facility] Comment on above: Performed By: #### 9 [id number] #### [facility] [address] [facility] [address] [place] Monkey Breeder: Ramirez Ureña M.D.,PhD #### [id number], [id number], 899, 866, 859 #### [facility] [address], [address] [place] [address] Monkey Breeder: Chago Rodriguez MD TSHon 11-17-2024 TSH Qn 0.77 m[IU]/L Normal 0.40-4.50 [facility] Comment on above: Performed By: #### 9 [id number] #### [facility] [address] [facility] [address] [place] Monkey Breeder: Ramirez Ureña M.D.,PhD #### [phone], [phone], 899, 866, 859 #### [facility] [address], [address] [place] [address] Monkey Breeder: Chago Rodriguez MD BI MAMMOGRAM SCREENING TOMOS YNTNELSONIS BILATERALon 08-02-2024 BI MAMMOGRAM SCREENING TOMOSYNTHESIS BILATERAL This is a summary report. The complete report is available in the patient's medical record. If you cannot access the medical record, please contact the sending organization for a detailed fax or copy. Examination: BI MAMMOGRAM SCREENING TOMOSYNTHESIS BILATERAL Clinical History: Breast Cancer Screening Technique: Screening digital mammography study of both breasts was performed with 2-D and 3-D tomosynthesis imaging. Study was compared to the prior exam dated 06/19/2023. Findings: There is no evidence of interval dominant spiculated mass, grouped microcalcifications, or skin thickening which would be suggestive of malignancy. A few benign-appearing calcifications are seen bilaterally. A partially visualized axillary lymph node is suggested on the right and appears grossly unremarkable. IMPRESSION: Impression: No specific evidence of malignancy seen in either breast. BIRADS 2 - Benign Findings DENSITY: The breasts are heterogeneously dense, which may obscure small masses. FOLLOW-UP: Routine Screening Mammogram ELECTRONICALLY SIGNED BY: Bill Almanzar M.D. Normal Not Available Basophils Auto (Bld) [#/Vol] on 08-26-2023 Basophils (Bld) [#/Vol] 0.1 10 3/uL 0.0-0.1 [facility] Basophils/100 WBC Auto (Bld) on 08-26-2023 Basophils/100 WBC (Bld) 1.4 % 0.2-2.0 [facility] Cholesterol in LDL Calc [Mas s/Vol]on 08-26-2023 Cholesterol in LDL [Mass/Vol] 121.0 mg/dL [facility] Comment on above: <100 mg/dl [id number] 0-129 mg/dl NEAR OR ABOVE WAQUQBC140-799 mg/dl BORDERLINE OBNU943-484 mg/dl HIGH>190 mg/dl VERY HIGH Cholesterol in VLDL Calc [Ma ss/Vol]on 08-26-2023 Cholesterol in VLDL [Mass/Vol] 8.8 mg/dL [facility] Eosinophils/100 WBC Auto (Bl d)on 08-26-2023 Eosinophils/100 WBC (Bld) 1.4 % 0.9-7.0 [facility] Erythrocyte distribution wid th Auto (RBC) [Ratio]on 08-26-2023 Erythrocyte distribution width (RBC) [Ratio] 11.9 % 11.0-15.0 [facility] Estimated glomerular filtrat ion rate (GFR) non- Americanon 08-26-2023 GFR/1.73 sq M.predicted among non-blacks MDRD (S/P/Bld) [Vol rate/Area] 59 mL/min/{1.73_m2} >=60 [facility] Globulin Calc (S) [Mass/Vol] on 08-26-2023 Globulin (S) [Mass/Vol] 3.1 g/dL [facility] Hematocrit Auto (Bld) [Volum e fraction]on 08-26-2023 Hematocrit (Bld) [Volume fraction] 39.5 % 36.0-48.0 [facility] Hemoglobin [Mass/volume] in Bloodon 08-26-2023 Hemoglobin (Bld) [Mass/Vol] 13.2 g/dL 12.0-16.0 [facility] Laboratory - Chemistry and C hemistry - challengeon 08-26-2023 Albumin [Mass/Vol] 4.0 g/dL 3.4-5.0 [facility] ALP [Catalytic activity/Vol] 68 U/L 46-116 [facility] ALT [Catalytic activity/Vol] 23 U/L 14-59 [facility] AST [Catalytic activity/Vol] 16 U/L 15-37 [facility] Bilirubin [Mass/Vol] 0.5 mg/dL 0.2-1.0 [facility] Calcium [Mass/Vol] 9.8 mg/dL 8.5-10.1 [facility] Chloride [Moles/Vol] 102 mmol/L 98-107 [facility] Cholesterol [Mass/Vol] 261 mg/dL <=200 [facility] Cholesterol in HDL [Mass/Vol] 132 mg/dL 40-60 [facility] Comment on above: > or =60 mg/dl - LOW CARDIOVASCULAR RISK<40 mg/dl - HIGH CARDIOVASCULAR RISK CO2 [Moles/Vol] 30.8 mmol/L 21.0-32.[address] [facility] Creatinine [Mass/Vol] 0.97 mg/dL 0.55-1.02 [facility] GFR/1.73 sq M.predicted MDRD (S/P/Bld) [Vol rate/Area] mL/min/{1.73_m2} >=60 [facility] Glucose [Mass/Vol] 82 mg/dL 74-106 [facility] Potassium [Moles/Vol] 4.4 mmol/L 3.5-5.1 [facility] Protein [Mass/Vol] 7.1 g/dL 6.4-8.2 [facility] Sodium [Moles/Vol] 141 mmol/L 136-145 [facility] Triglyceride [Mass/Vol] 44 mg/dL <=150 [facility] Urea nitrogen [Mass/Vol] 19.0 mg/dL 7.0-18.0 [facility] Urea nitrogen/Creatinine [Mass ratio] 19.6 mg/mg [facility] Laboratory - Hematology and Cell countson 08-26-2023 Immature granulocytes/100 WBC (Bld) 0.0 % 0.0-0.5 [facility] Leukocytes [#/volume] correc mary for nucleated erythrocytes in Blood by Automated counon 08-26-2023 WBC corrected for nucl RBC Auto (Bld) [#/Vol] 4.2 10 3/uL 4.0-11.0 [facility] Lymphocytes Auto (Bld) [#/Vo l]on 08-26-2023 Lymphocytes (Bld) [#/Vol] 2.1 10 3/uL 1.2-3.8 [facility] Lymphocytes/100 WBC Auto (Bl d)on 08-26-2023 Lymphocytes/100 WBC (Bld) 49.8 % 20.5-60.0 [facility] MCH Auto (RBC) [Entitic mass ]on 08-26-2023 MCH (RBC) [Entitic mass] 31.7 pg 26.7-34.0 [facility] MCHC Auto (RBC) [Mass/Vol]on 08-26-2023 MCHC (RBC) [Mass/Vol] 33.4 g/dL 29.9-35.2 [facility] MCV Auto (RBC) [Entitic vol] on 08-26-2023 MCV (RBC) [Entitic vol] 95.0 fL 81.0-99.0 [facility] Monocytes Auto (Bld) [#/Vol] on 08-26-2023 Monocytes (Bld) [#/Vol] 0.4 10 3/uL 0.3-0.8 [facility] Monocytes/100 WBC Auto (Bld) on 08-26-2023 Monocytes/100 WBC (Bld) 9.4 % 1.7-12.0 [facility] Neutrophils Auto (Bld) [#/Vo l]on 08-26-2023 Neutrophils (Bld) [#/Vol] 1.6 10 3/uL 1.4-6.5 [facility] Neutrophils/100 WBC Auto (Bl d)on 08-26-2023 Neutrophils/100 WBC (Bld) 38.0 % 43.0-75.0 [facility] No Panel Informationon 08-25 Eosinophils # (Auto) 0.1 10 3/uL 0.0-0.7 [facility] Immature Granulocyte # (Auto) 0.00 10 3/uL 0.00-0.03 [facility] Platelet mean volume Auto (B ld) [Entitic vol]on 08-26-2023 Platelet mean volume (Bld) [Entitic vol] 8.9 fL 9.5-13.5 [facility] Platelets Auto (Bld) [#/Vol] on 08-26-2023 Platelets (Bld) [#/Vol] 248 10 3/uL 150-450 [facility] RBC Auto (Bld) [#/Vol]on RBC (Bld) [#/Vol] 4.16 10 6/uL 4.20-5.40 [facility] Serum or plasma albumin/glob ulin mass ratioon 08-26-2023 Albumin/Globulin [Mass ratio] 1.3 {ratio} [facility] Serum or plasma anion gap de terminationon 08-26-2023 Anion gap [Moles/Vol] 12.6 mmol/L [facility] Serum or plasma total choles terol/high density lipoprotein (HDL) cholesterol mass naheed 08-26-2023 Cholesterol.total/Noa sterol in HDL [Mass ratio] 2.0 {ratio} [facility] Comment on above: 3.3 - 4.4 LOW RISK4. 4 - 7.1 AVERAGE RISK7.1 - 11.0 MODERATE RISK>11.0 HIGH RISK XR hip LT min 2V(w/wo pelvis )*on 05-05-2023 XR hip LT min 2V(w/wo pelvis)* [facility] [place] [address] XRay Report Signed Patient: Melody Torres MR#: [id number] : 1965 Acct:[id number] Age/Sex: 57 / F ADM Date: 05/05/23 Loc: XD Room: Type: [facility] Attending Dr: Tyson Delgado MD Copies to: Tyson Delgado MD Ordering Provider: Tyson Delgado MD Date of Service: 05/05/23 XR/XR hip LT min 2V(w/wo pelvis)*: Left hip pain LEFT HIP - 2 views: CLINICAL HISTORY: Left lateral buttocks pain. COMPARISON: None FINDINGS: Mild degenerative changes of the left hip with calcification involving the region of the labrum suggestive of prior injury. No acute bony process. XR/XR hip LT min 2V(w/wo pelvis)* IMPRESSION: MILD DEGENERATIVE CHANGES WITHOUT ACUTE BONY PROCESS.. Impression dictated by: Rolly San Jr., D.OYudy05/05/2023 3:22 PM Dictation Location: [place] [address] Transcribed By: [facility] 05/05/23 1522 Dictated By: Rolly San Jr, DO 05/05/23 1521 Signed By: 05/05/23 1522 [facility] MR cervical spine wo conon 0 01-11-2023 MR cervical spine wo con [facility] [address] [place] [address] [place] [address] MRI Report Signed Patient: Melody Torres MR#: [id number] : 1965 Acct:[id number] Age/Sex: 57 / F ADM Date: 01/10/23 Loc: Room: Type: [facility] Attending Dr: Tyson Delgado MD Copies to: Tyson Delgado MD Ordering Provider: Tyson Delgado MD Date of Service: 01/10/23 MR/MR cervical spine wo con: M47.812 MRI Cervical Spine without contrast TECHNIQUE: Multiplanar T1 and T2-weighted imaging of the cervical spine obtained. HISTORY: Chronic neck pain COMPARISON: Plain film imaging in 723 BONY ALIGNMENT: Adequate BONY LESION: None CERVICAL CORD: No significant demyelination. SKULL BASE: unremarkable. PREVERTEBRAL SOFT TISSUES: Unremarkable NASOPHARYNGEAL REGION: unremarkable. VERTEBRAL ARTERIES: unremarkable. POSTSURGICAL CHANGES: None CERVICAL SOFT TISSUES: Unremarkable C1-2 LEVEL: Unremarkable C2-3: Mild diffuse disc bulge greater on the RIGHT. Patent central canal and neural foramen. C3-4: Mild spondylosis. Mild midline disc protrusion. Patent central canal and neural foramen. C4-5: Mild spondylosis. Diffuse disc bulge. Patent central canal. Moderate RIGHT neural foraminal narrowing. Patent LEFT neural foramen. C5-6: Extensive spondylosis. Diffuse disc bulge. Crowding of the cord. No cord hemorrhage. Patent neural foramen. C6-7: Extensive spondylosis. Moderate diffuse disc bulge. Patent central canal. Mild bilateral neural foraminal narrowing. C7-T1: Unremarkable MR/MR cervical spine wo con IMPRESSION: Multi level discovertebral degenerative changes with levels of mild crowding of the cord and neural foraminal narrowing as above. Impression dictated by: Maurizio Oconnor M.D.01/11/2023 11:47 AM Dictation Location: [place] [address] Transcribed By: [facility] 01/11/23 1147 Dictated By: Maurizio Oconnor DO 01/11/23 1144 Signed By: 01/11/23 1147 Normal [facility] XR cerv spine AP/LAT/FLX/EXT on 01-09-2023 XR cerv spine AP/LAT/FLX/EXT [facility] [place] [address] [place] [address] XRay Report Signed Patient: Melody Torres MR#: [id number] : 1965 Acct:[id number] Age/Sex: 57 / F ADM Date: 01/09/23 Loc: XD Room: Type: [facility] Attending Dr: Tyson Delgado MD Copies to: Tyson Delgado MD Ordering Provider: Tyson Delgado MD Date of Service: 01/09/23 XR/XR cerv spine AP/LAT/FLX/EXT: Cervical spondylosis ([id number]) XR/XR shoulder RT min 2V*: Acute pain of right shoulder 3 views right shoulder plain film HISTORY: Neck pain radiating to the right shoulder COMPARISON: None ACUTE FINDINGS: None DEGENERATIVE CHANGE: Minor acromioclavicular spurring. SOFT TISSUE FINDINGS: Unremarkable JOINT EFFUSION: None POSTOP CHANGES: None BONY MINERALIZATION: Adequate XR/XR shoulder RT min 2V* IMPRESSION: Minor degenerative change. AP with lateral neutral, flexion and extension views of cervical spine Straightening of cervical lordosis. Minor degenerative listhesis. No hypermobility. C4-5 mild spondylosis with endplate spurring. C5-6 and C6-7 disc space narrowing and endplate spurring. C7-T1 mild spondylosis. Multilevel mild facet degeneration. Unremarkable soft tissues. IMPRESSION: No hypermobility. Mild degenerative listhesis. Straightening of cervical lordosis. Extensive multilevel mid cervical degenerative change. Impression dictated by: Maurizio Oconnor M.D.01/09/2023 3:42 PM Dictation Location: [place] [address] Transcribed By: [facility] 01/09/23 1542 Dictated By: Maurizio Oconnor DO 01/09/23 1538 Signed By: 01/09/23 1542 [facility] REVERSE T3on 10-17-2022 Reverse T3, Serum 9.8 ng/dL Normal 9.2-24.1 [facility] Comment on above: Performed By: #### R [id number] #### [facility] [address] [place] [address] Dr. Caroline Stephens SEROTONINon 10-07-2022 Serotonin, Serum 8 ng/mL Critically low 31-207 [facility] Comment on above: Performed By: #### R EVRT3 #### [facility] [address] [place] [address] Dr. Caroline Stephens T3, TOTAL (TRIIODOTHYRONINE) on 10-04-2022 T3, TOTAL 84 ng/dL Normal 71-180 [facility] Comment on above: Performed By: #### R EVRT3 #### [facility] [address] [place] [address] Dr. Caroline Stephens THYROGLOBULIN AB AND THYROGL OBULINon 10-04-2022 Thyroglobulin Antibody <1.0 Normal 0.0-0.9 Th [facility] [place] Comment on above: Result Comment: Thyr oglobulin Antibody measured by [employer] Methodology Performed By: #### R [id number] #### [facility] [address] [place] [address] Dr. Caroline Stephens Thyroglobulin by LAVERN 9.6 ng/mL Normal 1.5-38.5 [facility] Comment on above: Result Comment: Acco rding to the National Academy of Clinical Biochemistry, the reference interval for Thyroglobulin (TG) should be related to euthyroid patients and not for patients who underwent thyroidectomy. TG reference intervals for these patients depend on the residual mass of the thyroid tissue left after surgery. Establishing a post-operative baseline is recommended. The assay limit of quantitation is 0.1 ng/mL . Thyroglobulin measured by [employer] Immunometric Assay Performed By: #### R [email or web address] #### [facility] [address] [place] [address] Dr. Caroline Stephens THYROID PEROXIDASE ABon 05- Thyroid Peroxidase (TPO) Ab 18 IU/mL Normal 0-34 [facility] Comment on above: Performed By: #### R [id number] #### [facility] [address] [place] [address] Dr. Caroline Stephens CBC AUTO DIFFon 10-03-2022 BASO # 0.0 103/ul Normal 0.0-0.1 [facility] Comment on above: Performed By: #### C ORJCARLOSO #### [facility] [address] [place] [address] Dr. Caroline Stephens Basophils/100 WBC (Bld) 1.0 % Normal 0.2-2.0 [facility] Comment on above: Performed By: #### C ORTISO #### [facility] [address] [place] [address] Dr. Caroline Stephens EO # 0.1 103/ul Normal 0.0-0.7 [facility] Comment on above: Performed By: #### C ORTISO #### [facility] [address] [place] [address] Dr. Caroline Stephens Eosinophils/100 WBC (Bld) 3.0 % Normal 0.9-7.0 [facility] Comment on above: Performed By: #### C ORTISO #### [facility] [address] [place] [address] Dr. Caroline Stephens Erythrocyte distribution width (RBC) [Ratio] 11.8 % Normal 11.0-15.0 [facility] Comment on above: Performed By: #### C ORTISO #### [facility] [address] [place] [address] Dr. Caroline Stephens Hematocrit (Bld) [Volume fraction] 39.2 % Normal 36.0-48.0 [facility] Comment on above: Performed By: #### C ORTISO #### [facility] [address] [address] [address] Caroline Stephens Hemoglobin (Bld) [Mass/Vol] 13.3 g/dL Normal 12.0-16.[address] [facility] Comment on above: Performed By: #### C ORTISO #### [facility] [address] [place] [address] Dr. Caroline Stephens IG # 0.01 10e3/ul Normal 0.00-0.03 [facility] Comment on above: Performed By: #### C ORTISO #### [facility] [address] [place] [address] Dr. Caroline Stephens IG % 0.2 % Normal 0.0-0.[address] [facility] Comment on above: Performed By: #### C ORTISO #### [facility] [address] [place] [address] Dr. Caroline Stephens LYMPH # 1.8 103/ul Normal 1.2-3.[address] [facility] Comment on above: Performed By: #### C ORTISO #### [facility] [address] [place] [address] Dr. Caroline Stephens Lymphocytes/100 WBC (Bld) 44.3 % Normal 20.5-60.[address] [facility] Comment on above: Performed By: #### C ORTISO #### [facility] [address] [place] [address] Dr. Caroline Stephens MANUAL DIFF REQ NO Normal [facility] Comment on above: Performed By: #### C ORTISO #### [facility] [address] [place] [address] Dr. Caroline Stephens MCH (RBC) [Entitic mass] 31.5 pg Normal 26.7-34.[address] [facility] Comment on above: Performed By: #### C ORTISO #### [facility] [address] [place] [address] Dr. Caroline Stephens MCHC (RBC) [Mass/Vol] 33.9 g/dL Normal 29.9-35.[address] [facility] Comment on above: Performed By: #### C ORTISO #### [facility] [address] [place] [address] Dr. Caroline Stephens MCV (RBC) [Entitic vol] 92.9 fL Normal 81.0-99.0 [facility] Comment on above: Performed By: #### C ORTISO #### [facility] [address] [place] [address] Dr. Caroline Stephens MONO # 0.4 103/ul Normal 0.3-0.8 [facility] Comment on above: Performed By: #### C ORTISO #### [facility] [address] [place] [address] Dr. Caroline Stephens Monocytes/100 WBC (Bld) 10.0 % Normal 1.7-12.0 [facility] Comment on above: Performed By: #### C ORTISO #### [facility] [address] [place] [address] Dr. Caroline Stephens NEUT # 1.7 103/ul Normal 1.4-6.5 [facility] Comment on above: Performed By: #### C ORTISO #### [facility] [address] [place] [address] Dr. Caroline Stephens Neutrophils/100 WBC (Bld) 41.5 % Critically low 43.0-75.0 [facility] Comment on above: Performed By: #### C ORTISO #### [facility] [address] [place] [address] Dr. Caroline Stephens Platelet mean volume (Bld) [Entitic vol] 8.9 fL Critically low 9.5-13.5 [facility] Comment on above: Performed By: #### C ORTISO #### [facility] [address] [place] [address] Dr. Caroline Stephens PLT 268 103/ul Normal 150-[address] [facility] Comment on above: Performed By: #### C ORTISO #### [facility] [address] [place] [address] Dr. Caroline Stephens RBC 4.22 106/ul Normal 4.20-5.40 [facility] Comment on above: Performed By: #### C ORTISO #### [facility] [address] [address] [address] Caroline Stephens WBC 4.0 103/ul Normal 4.0-11.0 [facility] Comment on above: Performed By: #### C SARATHO #### [facility] [address] [place] [address] Dr. Caroline Stephens FERRITINon 10-03-2022 Ferritin [Mass/Vol] 54.0 ng/mL Normal 8.0-252.0 [facility] Comment on above: Performed By: #### R [id number] #### [facility] [address] [place] [address] Dr. Caroline Stephens FREE T3on 10-03-2022 FREE T3 2.50 pg/mlL Normal 2.18-3.98 [facility] Comment on above: Performed By: #### T SH, LIPID, FT3, CMP #### [facility] [address] [place] [address] Dr. Caroline Stephens FREE T4on 10-03-2022 Free T4 [Mass/Vol] 0.74 ng/dL Critically low 0.76-1.46 Th [facility] [place] Comment on above: Performed By: #### R EVRT3 #### [facility] [address] [place] [address] Dr. Caroline Stephens LIPID PROFILEon 10-03-2022 CHOL-HDL RATIO NORM SEE BELOW Normal [facility] Comment on above: Result Comment: 3.3 - 4.4 LOW RISK 4.4 - 7.1 AVERAGE RISK 7.1 - 11.0 MODERATE RISK >11.0 HIGH RISK Performed By: #### T SH, LIPID, FT3, CMP #### [facility] [address] [place] [address] Dr. Caroline Stephens Cholesterol [Mass/Vol] 251 mg/dL Critically high <=200 [facility] Comment on above: Performed By: #### T SH, LIPID, FT3, CMP #### [facility] [address] [place] [address] Dr. Caroline Stephens Cholesterol in HDL [Mass/Vol] 117 mg/dL Critically high 40-60 [facility] Comment on above: Performed By: #### T SH, LIPID, FT3, CMP #### [facility] [address] [address] [address] Caroline Stephens Cholesterol in LDL [Mass/Vol] 124.0 mg/dL Normal [facility] Comment on above: Performed By: #### T SH, LIPID, FT3, CMP #### [facility] [address] [address] [address] Caroline Stephens Cholesterol.total/Noa sterol in HDL [Mass ratio] 2.1 {ratio} Normal [facility] Comment on above: Performed By: #### T SH, LIPID, FT3, CMP #### [facility] [address] [address] [address] Caroline Stephens HDL NORMAL > or = 60 mg/dl - LO W CARDIOVASCULAR RISK <40 mg/dl - HIGH CARDIOVASCULAR RISK Normal [facility] Comment on above: Performed By: #### T SH, LIPID, FT3, CMP #### [facility] [address] [address] [address] Caroline Stephens LDL CALC NORMAL SEE BELOW Normal [facility] Comment on above: Result Comment: <100 mg/dl OPTIMAL 100 - 129 mg/dl NEAR OR ABOVE OPTIMAL 130 - 159 mg/dl BORDERLINE HIGH 160 - 189 mg/dl HIGH >190 mg/dl VERY HIGH Performed By: #### T SH, LIPID, FT3, CMP #### [facility] [address] [address] [address] Caroline Stephens Triglyceride [Mass/Vol] 50 mg/dL Normal <=150 [facility] Comment on above: Performed By: #### T SH, LIPID, FT3, CMP #### [facility] [address] [address] [address] Caroline Stephens VLDL CALC 10.0 mg/dL Normal [facility] Comment on above: Performed By: #### T SH, LIPID, FT3, CMP #### [facility] [address] [address] [address] Caroline Stephens PROF 14(COMP METB)on 023 Albumin [Mass/Vol] 3.5 g/dL Normal 3.4-5.0 [facility] Comment on above: Performed By: #### T SH, LIPID, FT3, CMP #### [facility] [address] [place] [address] Dr. Caroline Stephens Albumin/Globulin [Mass ratio] 1.1 {ratio} Normal [facility] Comment on above: Performed By: #### T SH, LIPID, FT3, CMP #### [facility] [address] [place] [address] Dr. Caroline Stephens ALP [Catalytic activity/Vol] 68 U/L Normal 46-116 [facility] Comment on above: Performed By: #### T SH, LIPID, FT3, CMP #### [facility] [address] [place] [address] Dr. Caroline Stephens ALT [Catalytic activity/Vol] 25 U/L Normal 14-59 [facility] Comment on above: Performed By: #### T SH, LIPID, FT3, CMP #### [facility] [address] [place] [address] Dr. Caroline Stephens Anion gap [Moles/Vol] 8.4 mmol/L Normal [facility] Comment on above: Performed By: #### T SH, LIPID, FT3, CMP #### [facility] [address] [place] [address] Dr. Caroline Stephens AST [Catalytic activity/Vol] 17 U/L Normal 15-37 [facility] Comment on above: Performed By: #### T SH, LIPID, FT3, CMP #### [facility] [address] [place] [address] Dr. Caroline Stephens Bilirubin [Mass/Vol] 0.5 mg/dL Normal 0.2-1.0 [facility] Comment on above: Performed By: #### T SH, LIPID, FT3, CMP #### [facility] [address] [place] [address] Dr. Caroline Stephens Calcium [Mass/Vol] 9.6 mg/dL Normal 8.5-10.[address] [facility] Comment on above: Performed By: #### T SH, LIPID, FT3, CMP #### [facility] [address] [address] [address] Caroline Stephens Chloride [Moles/Vol] 106 mmol/L Normal 98-107 [facility] Comment on above: Performed By: #### T SH, LIPID, FT3, CMP #### [facility] [address] [address] [address] Caroline Stephens CO2 [Moles/Vol] 29.4 mmol/L Normal 21.0-32.0 [facility] Comment on above: Performed By: #### T SH, LIPID, FT3, CMP #### [facility] [address] [address] [address] Caroline Stephens Creatinine [Mass/Vol] 0.88 mg/dL Normal 0.55-1.02 [facility] Comment on above: Performed By: #### T SH, LIPID, FT3, CMP #### [facility] [address] [place] [address] Dr. Caroline Stephens EGFR-AF CYMRAES >60 Normal >=60 [facility] Comment on above: Performed By: #### T SH, LIPID, FT3, CMP #### [facility] [address] [address] [address] Caroline Stephens EGFR-NON AF CYMRAES >60 Normal >=60 [facility] Comment on above: Performed By: #### T SH, LIPID, FT3, CMP #### [facility] [address] [address] [address] Caroline Stephens Globulin (S) [Mass/Vol] 3.2 g/dL Normal [facility] Comment on above: Performed By: #### T SH, LIPID, FT3, CMP #### [facility] [address] [address] [address] Caroline Stephens Glucose [Mass/Vol] 97 mg/dL Normal 74-106 [facility] Comment on above: Performed By: #### T SH, LIPID, FT3, CMP #### [facility] [address] [address] [address] Caroline Stephens Potassium [Moles/Vol] 3.8 mmol/L Normal 3.5-5.1 [facility] Comment on above: Performed By: #### T SH, LIPID, FT3, CMP #### [facility] [address] [place] [address] Dr. Caroline Stephens Protein [Mass/Vol] 6.7 g/dL Normal 6.4-8.[address] [facility] Comment on above: Performed By: #### T SH, LIPID, FT3, CMP #### [facility] [address] [place] [address] Dr. Caroline Stephens Sodium [Moles/Vol] 140 mmol/L Normal 136-[address] [facility] Comment on above: Performed By: #### T SH, LIPID, FT3, CMP #### [facility] [address] [place] [address] Dr. Caroline Stephens Urea nitrogen [Mass/Vol] 18.0 mg/dL Normal 7.0-18.0 [facility] Comment on above: Performed By: #### T SH, LIPID, FT3, CMP #### [facility] [address] [place] [address] Dr. Caroline Stephens Urea nitrogen/Creatinine [Mass ratio] 20.5 mg/mg Normal [facility] Comment on above: Performed By: #### T SH, LIPID, FT3, CMP #### [facility] [address] [place] [address] Dr. Caroline Stephens TSHon 10-03-2022 TSH 1.364 uIU/mL Normal 0.358-3.740 [facility] Comment on above: Performed By: #### T SH, LIPID, FT3, CMP #### [facility] [address] [place] [address] Dr. Caroline Stephens DIHYDROTESTOSTERONEon 2022 Dihydrotestosterone 4.8 ng/dL Normal [facility] Comment on above: Result Comment: This test was developed and its performance characteristics determined by [facility]. It has not been cleared or approved by the Food and Drug Administration. Reference Range: Adult Female: 4 - 22 Performed By: #### D HT #### [facility] [address] [place] [address] Dr. Caroline Stephens TESTOSTERONE, FREE,DIRECT, T OTALon 08-13-2022 Free Testosterone(Direct) <0.2 Normal 0.0-4.2 [facility] Comment on above: Result Comment: Perf ormed at: BN Performed By: #### C ORTISO #### [facility] [address] [address] [address] Caroline Stephens Testosterone [Mass/Vol] ng/dL Critically low 4-50 [facility] Comment on above: Result Comment: Perf ormed at: CB Performed By: #### C ORTISO #### [facility] [address] [place] [address] Dr. Caroline Stephens ESTRONEon 08-10-2022 Estrone, Serum <6 Normal [facility] Comment on above: Result Comment: Rang e Adult (Premenopausal) 27 - 231 Menstrual Cycle (1-10 days) 19 - 149 Menstrual Cycle (11-20 days) 32 - 176 Menstrual Cycle (21-30 days) 37 - 200 Adult (Postmenopausal) 0 - 125 Performed By: #### C ORTISO #### [facility] [address] [place] [address] Dr. Caroline Stephens DHEA-SULFATEon 08-07-2022 DHEA-Sulfate 41.0 ug/dL Normal 29.4-220.5 [facility] Comment on above: Performed By: #### D GUERO #### [facility] [address] [place] [address] Dr. Caroline Stephens ESTRADIOLon 08-07-2022 Estradiol <5.0 Normal [facility] Comment on above: Result Comment: Adul t Female: Follicular phase 12.5 - 166.0 Ovulation phase 85.8 - 498.0 Luteal phase 43.8 - 211.0 Postmenopausal <6.0 - 54.7 1st trimester 215.0 - >4300.0 [employer]CL[employer] methodology Performed By: #### C ORTISO #### [facility] [address] [place] [address] Dr. Caroline Stephens PROGESTERONEon 08-07-2022 Progesterone 0.3 ng/mL Normal [facility] Comment on above: Result Comment: Foll icular phase 0.1 - 0.9 Luteal phase 1.8 - 23.9 Ovulation phase 0.1 - 12.0 First trimester 11.0 - 44.3 Second trimester 25.4 - 83.3 Third trimester 58.7 - 214.0 Postmenopausal 0.0 - 0.1 Performed By: #### T SH, LIPID, FT3, CMP #### [facility] [address] [place], [place] [address] Dr. Caroline Stephens SCREENING MAMMOGRAM W/DEDE, BILATERAL*on 06-17-2022 SCREENING MAMMOGRAM W/DEDE, BILATERAL* CLINICAL HISTORY: Screening Mammogram COMPARISON: 05/10/2021, 12/27/2019, and 10/19/2018. TECHNIQUE: 2D and 3D Tomosynthesis of the right and left breasts was performed. FINDINGS: DENSITY: Heterogeneously dense. There are no suspicious masses, areas of suspicious microcalcifications or areas of architectural distortion identified. No evidence of skin thickening. IMPRESSION: BIRADS 1 : NEGATIVE, NORMAL INTERVAL FOLLOW UP. Board certified radiologist. Accredited by the ACR and FDA. MAMMOGRAPHY IS VERY IMPORTANT TO YOUR HEALTH. CURRENT [employer] GUIDELINES RECOMMENDS ANNUAL MAMMOGRAPHY BEGINNING AT AGE 40. THIS FACILITY USUALLY USES A REMINDER SYSTEM TO ENSURE ALL POSITIONS RECEIVED REMINDER NOTIFICATIONS AT THE TIME BASED ON THE RECOMMENDATIONS OF THIS EXAM. Report reported and signed by Johnny Ventura on 06/20/2022 1318 Normal [facility] [employer] COVID + FLU Quick Testingon 06-08-2022 SARS-CoV-2 (COVID-19) RNA JENNIFER+probe Ql (Unsp spec) Negative [employer] Other COVID + FLU Quick Testing Negative [employer] Other TESTOSTERONE, FREE,DIRECT, T OTALon 06-08-2022 Free Testosterone(Direct) 0.3 pg/mL Normal 0.0-4.2 [facility] Comment on above: Result Comment: Perf ormed at: BN Performed By: #### R [email or web address] #### [facility] [address] [place], [place] [address] Dr. Caroline Stephens Testosterone [Mass/Vol] ng/dL Critically low 4-50 [facility] Comment on above: Result Comment: Perf ormed at: CB Performed By: #### R EVRT3 #### [facility] [address] [place] [address] Dr. Caroline Stephens ESTRONEon 06-07-2022 Estrone, Serum <6 Normal [facility] Comment on above: Result Comment: Rang e Adult (Premenopausal) 27 - 231 Menstrual Cycle (1-10 days) 19 - 149 Menstrual Cycle (11-20 days) 32 - 176 Menstrual Cycle (21-30 days) 37 - 200 Adult (Postmenopausal) 0 - 125 Performed By: #### E STRONE #### [facility] [address] [place] [address] Dr. Caroline Stephens CORTISOLon 06-04-2022 Cortisol 16.1 ug/dL Normal [facility] Comment on above: Result Comment: Catalino isol AM 6.2 - 19.4 Cortisol PM 2.3 - 11.9 Performed By: #### C ORTISO #### [facility] [address] [place] [address] Dr. Caroline Stephens DHEA-SULFATEon 06-04-2022 DHEA-Sulfate 74.4 ug/dL Normal 29.4-220.5 [facility] Comment on above: Performed By: #### R EVRT3 #### [facility] [address] [place] [address] Dr. Caroline Stephens ESTRADIOLon 06-04-2022 Estradiol <5.0 Normal [facility] Comment on above: Result Comment: Adul t Female: Follicular phase 12.5 - 166.0 Ovulation phase 85.8 - 498.0 Luteal phase 43.8 - 211.0 Postmenopausal <6.0 - 54.7 1st trimester 215.0 - >4300.0 [employer] ECLIA methodology Performed By: #### R EVRT3 #### [facility] [address] [place] [address] Dr. Caroline Setphens PROGESTERONEon 06-04-2022 Progesterone <0.1 Normal [facility] Comment on above: Result Comment: Foll icular phase 0.1 - 0.9 Luteal phase 1.8 - 23.9 Ovulation phase 0.1 - 12.0 First trimester 11.0 - 44.3 Second trimester 25.4 - 83.3 Third trimester 58.7 - 214.0 Postmenopausal 0.0 - 0.1 Performed By: #### R EVRT3 #### [facility] [address] [place] [address] Dr. Caroline Stephens SEX HORMONE-BINDING GLOBULIN on 06-04-2022 Sex Horm Binding Glob, Serum 53.7 nmol/L Normal 17.3-125.0 [facility] Comment on above: Performed By: #### C ORTISO #### [facility] [address] [place] [address] Dr. Caroline Stephens VITAMIN D 25 OHon 06-03-2022 VIT D 25-OH 60.7 ng/mL Normal [facility] Comment on above: Performed By: #### C SARATHO #### [facility] [address] [place] [address] Dr. Caroline Stephens VIT D RANGES SEE BELOW Normal [facility] Comment on above: Result Comment: <20 ng/mL Vit D deficient 20 - <30 ng/mL Vit D insufficient 30 - 100 ng/mL Vit D sufficient >100 ng/mL Potential Toxicity Performed By: #### C ORTISO #### [facility] [address] [place] [address] Dr. Caroline Stephens QUANTIFERON TB GOLD PLUSon 1 QuantiFERON Criteria Comment Normal [facility] Comment on above: Result Comment: Tucker tiFERON-TB Gold Plus is a qualitative indirect test for M tuberculosis infection (including disease) and is intended for use in conjunction with risk assessment, radiography, and other medical and diagnostic evaluations. The QuantiFERON-TB Gold Plus result is determined by subtracting the Nil value from either TB antigen (Ag) value. The Mitogen tube serves as a control for the test. Performed By: #### C ORTISO #### [facility] [address] [place] [address] Dr. Caroline Stephens QuantiFERON Incubation Incubation performed. Normal [facility] Comment on above: Performed By: #### C ORTISO #### [facility] [address] [place] [address] Dr. Caroline Stephens QuantiFERON Mitogen Value >10.00 Normal [facility] Comment on above: Performed By: #### C ORTISO #### [facility] [address] [address] [address] Caroline Stephens QuantiFERON Nil Value 0.06 IU/mL Normal [facility] Comment on above: Performed By: #### C ORTISO #### [facility] [address] [place] [address] Dr. Caroline Stephens QuantiFERON TB1 Ag Value 0.06 IU/mL Normal [facility] Comment on above: Performed By: #### C ORTISO #### [facility] [address] [address] [address] Caroline Stephens QuantiFERON TB2 Ag Value 0.06 IU/mL Normal [facility] Comment on above: Performed By: #### C ORTISO #### [facility] [address] [place] [address] Dr. Caroline Stephens QuantiFERON-TB Gold Plus Negative Normal Negative [facility] Comment on above: Result Comment: No r esponse to M tuberculosis antigens detected. Infection with M tuberculosis is unlikely, but high risk individuals should be considered for additional testing (ATS/IDSA/CDC Clinical Practice Guidelines, 2017). The reference range is an Antigen minus Nil result of <0.35 IU/mL. Chemiluminescence immunoassay methodology Performed By: #### C ORTISO #### [facility] [address] [place] [address] Dr. Caroline Stephens HEPATITIS B SURFACE ANTIBODY , QUANTon 04-02-2022 Hepatitis B Surf AB Quant 123.2 mIU/mL Normal Immunity>9. 9 [facility] Comment on above: Result Comment: Stat us of Immunity Anti-HBs Level Inconsistent with Immunity 0.0 - 9.9 Consistent with Immunity >9.9 Performed By: #### T SH, LIPID, FT3, CMP #### [facility] [address] [place] [address] Dr. Caroline Stephens MMR IMMUNITYon 04-02-2022 Mumps Abs, IgG 218.0 AU/mL Normal Immune >10.9 [facility] Comment on above: Result Comment: Nega tive <9.0 Equivocal 9.0 - 10.9 Positive >10.9 A positive result generally indicates past exposure to Mumps virus or previous vaccination. Performed By: #### C ORTISO #### [facility] [address] [place] [address] Dr. Caroline Stephens Rubella Antibodies, IgG 1.85 index Normal Immu ne >0.99 [facility] Comment on above: Result Comment: Non- immune <0.90 Equivocal 0.90 - 0.99 Immune >0.99 Performed By: #### C ORJCARLOSO #### [facility] [address] [place] [address] Dr. Caroline Stephens Rubeola Ab, IgG 226.0 AU/mL Normal Immune >16.4 [facility] Comment on above: Result Comment: Nega tive <13.5 Equivocal 13.5 - 16.4 Positive >16.4 Presence of antibodies to Rubeola is presumptive evidence of immunity except when acute infection is suspected. Performed By: #### C ORTISO #### [facility] [address] [place] [address] Dr. Caroline Stephens VARICELLA IGG ABon 2 Varicella Zoster IgG 2753 index Normal Immune >165 [facility] Comment on above: Result Comment: Nega tive <135 Equivocal 135 - 165 Positive >165 A positive result generally indicates exposure to the pathogen or administration of specific immunoglobulins, but it is not indication of active infection or stage of disease. Performed By: #### V ARCEL #### [facility] [address] [place] [address] Dr. Caroline Stephens NM STRESS/REST MULTIon 02-24 NM STRESS/REST MULTI Patient: YARELIS TORRES Exam Date: 02/24/2022 : 1965 Gender:F Ordering : DR HEATH JACOB D.O. Admission #: [id number] Family : Order #: [id number] CLICK HERE TO VIEW EXAM RADIOLOGY REPORT PROCEDURE: RADIONUCLIDE IMAGING STRESS/REST MULTI COMPARISON: None. INDICATIONS: Chest pain TECHNIQUE: Exam Description: Stress/Rest one day protocol gated SPECT Rest Imagin.4 mCi Tc-99m Cardiolite IV on 02/24/2022 Stress Imaging 30.5 mCi Tc-99m Cardiolite IV on 02/24/2022 Exercise Protocol: Edgar Heart Rate (bpm): Rest: 63 Max: 155 PMHR: 93 Blood Pressure: Rest: 122/74 Max: 202/80 Exercise Time: Minutes: 10 Seconds: 00 Stage Reached: Stage: 4 Mets 13.4 Symptoms: Rest and peak stress ECG findings were normal and the exercise portion of the study was normal per attending physician Dr. Cory Jacob . For more details please see separate cardiac stress test report. FINDINGS: QUALITY OF STUDY: Excellent. PERFUSION DEFECT: None. LOCATION: N/A SIZE: N/A. SEVERITY: N/A. TYPE: N/A. WALL MOTION: Normal. LV SIZE: Normal. 73 mL. TID / TCD: None; 1.0 LVEF: Normal. Calculated EF 64%. SUMMARY: Myocardial perfusion imaging study is NORMAL. CONCLUSION: 1. Normal nuclear medicine myocardial perfusion scan. Dictated by: Johnny Saunders M.D. on 02/24/2022 at 14:43 Approved by: Johnny Saunders M.D. on 02/24/2022 at 14:44 Normal [facility] ECHOCARDIO M/2D COMPLETEon 0 02-04-2022 ECHOCARDIO M/2D COMPLETE Patient: MELODY TORRES Exam Date: 02/04/2022 : 1965 Gender:F Ordering : DR HEATH JACOB D.O. Admission #: [id number] Family : Order #: [id number] CLICK HERE TO VIEW EXAM ECHOCARDIOGRAM REPORT PROCEDURE: CARDIO PULMONARY ECHOCARDIO M/2D COMP INDICATIONS: Systolic murmur, h/o COVID x 2 COMPARISON: None. DESCRIPTION: COMPLETE ECHOCARDIOGRAM Real-time transthoracic echocardiography with 2D, M-mode, spectral and color flow Doppler performed. QUALITY: Technical quality was good. 64 126# BP 132/80 HR 67 LEFT VENTRICLE: Normal chamber size. Normal left ventricular wall thickness. LV EF: Global left ventricular systolic function is normal; visually estimated ejection fraction is 55 to 60%. No wall motion abnormalities. DIASTOLIC: Normal diastolic function. ATRIAL SEPTUM: Visually appears intact. LEFT ATRIUM: Normal chamber size. RIGHT ATRIUM: Normal chamber size. RIGHT VENTRICLE: Normal chamber size. Normal right ventricular systolic function. TRICUSPID VALVE: Normal mobility and thickness. Trivial regurgitation. Normal right ventricular systolic pressure; RVSP is 22 mmHg. MITRAL VALVE: Mildly thickened with normal mobility. No evidence of mitral valve stenosis. There is no mitral annular calcification. Trivial mitral regurgitation. AORTIC VALVE: Normal trileaflet appearance. No visible sclerosis. Normal leaflet mobility. No evidence of aortic valve stenosis. No aortic regurgitation. AORTIC ROOT: Normal diameter and appearance. PULMONIC VALVE: Normal thickness and mobility. No stenosis. Trivial regurgitation. PERICARDIUM: No evidence of pericardial effusion. IVC: Collapses with inspirations. IVC is normal in size. CONCLUSION: Global left ventricular systolic function is normal; visually estimated ejection fraction is 55 to 60%. No wall motion abnormalities. The right ventricle is normal in size and systolic function. No significant valvular abnormalities. Adult Echocardiography Procedure Report Left Ventricle Left Atrium Mitral Valve Right Ventricle Aorta Aortic Valve Peak Velocity (Antegrade Flow): 1.04 m/s AoV Area (Peak Guilherme): 2.81 cm2, 2.81 cm2 Tricuspid Valve Peak Velocity (Regurgitant Flow): 1.81 m/s, 2.15 m/s Peak Velocity: 0.63 m/s Pulmonic Valve Peak Velocity: 0.72 m/s Peak Gradient: 2.07 mm[Hg] Right Atrium Dictated by: Arturo Diallo M.D. on 02/04/2022 at 15:38 Approved by: Arturo Diallo M.D. on 02/04/2022 at 15:[address] [facility] Coding Summary.on 2021 Coding Summary. [id number] G h0bWw+PGhlYWQ+LV3EYKZ cF46reKUisF9GH4xHPW4M NALWDHLBAA2MYI4nfXQ2G FmtY2MgbqEm LeswjMGkGQ45JHr9DPG4d LieLYnhyP9nqOReK9c8Ay PzPI52gE45VEvkLBKtRiT 3LjZpbjsgbWFy F5hsUjOknFHhXet+PHRhY mxlIHdpZHRoPScxMDAlJy NleSkqPT0fIb5rIEAaLGZ vbGxhcHNlOiBj x9vqMYCpWBgvAL6ufIfwJ 5YmeRZ4DIRel5l5Ku60oK I+IMGyMMY5iPgxKMatn69 1WzZpb9rxFYL2 fWIcVPtkGFA9V41ot2L3Y FDuYEPzYAC0dJI1bV3lnC edscvuN0WtvLSxCgB5HPX 7iKLagR8khBqu rcbfbZ1wChb+T00XKI7AR VCWLK7CWua6P8KpFtxweN I+LY35XQPeYQ90tDQqhUZ ng4azrKt9VxYc EOFnBJI4xMwsUTvyn5AbU GXhV27twYWkm6V1PHJvdH zxmQBeAxErpSO8wY3kULh ygjdyd8rzhyby Vdyir0cmeh84oQ40F73yI FxtYWVtVPL6QJMdRPTqtP khpb7sfM3zBr6+FUnug1i fq2ulgRv8KzAr UMViofHlsNaaXLR8s0BhS n43W8KneUptt2XwHgi2px 61yBXja3Z1gDN5XAreVGQ agS3iNWpnPaW1 SDLmXgSloJ96dMHtXCxnM i3laAhvvZrhAF7kKUDmyd pbGIZmpT8zDUYaqXRtcMh hNH2zYTQdoyyq d683UkBrYJK6MRXieHIdL 4VfuX7dBkTiDFZiDMQlL5 PptIWlAQngB703QBlaQdT 9LHCeyiGjF4Vk VOCmgYbpEiJ4r2M4Hd1Qo 2PbehaoBLC5FClyGCV5Kd P4PmNwQhK9G3CcPcy8CLW xcAjtYL1iO3Sd PMNmkvqhfsuymUX5ZNZiJ APhgE41wVXgLDtdOp8xg7 O8a910OQNoHZCxxH27Bp0 udDogMTBwdCBU jB4ekbswx8vgqwbxQpRhF SSrSNp4GDg0OQXuiIqkWt TsKXS2ZcC6YQT2aTUecD4 qsOmogspexE1q Oyc+D72akE0jSNY0PXC4e sopZCBtdwPrQU95YY86R9 RyPjwvdGFibGU+PGRpdiB twAppSX0jJhBn u9ruw8MnTSjkP6VsGXJtN IvpRuu5VMUkDHL7cIY1aN 2rJNGhISxaz9B9aOX2V3F qlkJtqf2xm9ku XRNyUHamO75lfKXuh7P9P YDfxRZ0ULBsxZevMtPslO 93Oyc+LLRtkCirw7JeGes qm1obb9dqlOw6 ImEbHVEnulUdfHzbUXZ6k 6GbOi01Q04hIPobEPVjDM OaQQNkAZJczYkmbh2mkU2 wIi8+PGNvbCB3 fNN3pZ3uYETbIbJ1QDxyO 310AiWtyAYiDnmcv8bes2 touPt1RmZfJYXvckZeePp cKXN3a8NvQt30 M12xRMsrJLItHZAgVAYqP TGctJpfln2leY1qTj1+PC 4dr1bqnj06kQ10tSW+PHR nJRI7gWaoIRrc NAAdpU4cBTreSxY9AJEvT pGkuR97sLYtQNhfCg8vtC dteAdbQS8oKTZxnvdkm76 1XwDuj5sqRNJx nKKjCFmpGOB2P79gi1N9N CWdVKBsAAG0fFE5cT6yuC lnbjogbGVmdDsgdmVydGl wXZocTVaiT955 IHRvcDsnPlBhdGllbnQgT iZmLRp3Z2EmWxp7XZBfkN hgGE4ylSYfJNcfZw6muTh ixQnmTH4rWULd mulzo360GaWex9qlTJAdq KZpGDejHHW8Z31za2K8SA PdQAEhBYD4fJU8eB4dxXq nbjogbGVmdDsg jnDpiIvyBKqdVFssM731S HRvcDsnPkJpcnRoIERhdG M7ZW37EA65wCZuy5N9pTA 8Q8RqBORzqmdn hldykSY9XRHbGLVhbU80M e9grJyrHs8eANIdRHQ3PX VyxTJkI8TubN7eMhAhXFC sNXDeT5HnuXAp QOwkU324QKdiRvK9DOUrw eYjJ9EgJIYfqHjgQvX5e9 R8Qa9LF9B9IB81NQ01iXD cz9U9zZL7H1Tq DFXmsueyxcjgcZW1EQZyV LFebX70Ma8dkBelCu0xVX IeFDB8NQKvfYHuW4OegZ1 yOiAjMDAwMDAw H0SglJJlDKapS797QEfoC uE2LNUxmmVfE0LkDQWkiX ogBkL3s1L8Tp7THTv2RD6 6UK24uZIyg1P6 iUX0T8AqQSWzlwodejsyf TW5TNTfYHXtdS70Sa2urL hbMx1tLDHkKLT2BOFdaKK aL8SxiV2kNpMz NTDnPHVjX0OzkFHrERbcX 579VRuwGqP6IKFqmvWtF8 AkHPHqnJwaCnE5j8A1Io7 KKJDgPM68WZO7 wMQ4XU44QI56A6AaXcpkv GFibGU+PHRhYmxlIHdpZH RoPScxMDAlJyBzdHlsZT0 dIs3kRGNfBAQe gAhjjNTeSgMou5bfOWZxY FgvOM3fgCopK9UlgVW0DW Vlx2a5Mf29K79jJ2ActPE +EKMlqAG0lKH5 hL3zWtUmNsD8TEfaD124G mIqwZGtJcoce3ifz4rxbE f0YnR8MFJfbnOfgCexQIM 8o0NmVk77U87u IHdpZHRoPSIxNSUiIHZhb Wsbbp2wuR5tJn4+PGNvbC R0fSC3bQ7qRePkWsU4RIy xJ396YkChgCMq Whnul0maz4yphXk2RgMjT MCxdqJzoScxVWC7r4SwGd 40A1CchArfn9VhWpj6st8 4rRNva4B7hZK3 L5VcEMDeavzzcYNilMnbP W5jZMTzgzilUNQzzK6uLB YxH9k8MaVfDoJ6PXyoG2W fthX1JUApyUIj MCefWHF6L63bf5C3SMOlR JRtPYU4oGP7jR9zhBcves ogbGVmdDsgdmVydGljYWw yEZyvK374RRAe sAguUVHfkK5dALLtbMMmx OtnXZ2eDXShnxjwBtXQIY bDGHXGLYFVVF19G2FhAhf 9REPasWuaAK9e lHKfNQmcOh1duKxbuZorC O6pHBWjmiqsRICtiP7uEI HqePVveCasSH5gJQRmxuk dy249YbWyRBH5 NXKojGPdL0DnhK7kPdMoB NBnUFVuF9EspGKaZZvwP6 04MPhzFvQ5HBTzudMfA6Y sLWFsaWduOiB0 o8S9Qs7tAe7hYH9eEAC3N U63KU11zGJcz6E4qTE9O3 AuSZDvwqhvfejmrJC3RGI rGGQrvG76yCMn OToaLd5ka1C3u739JQKeW TNosV83Ek9cuVtaEALrxC JPpX6qsijrr0tjfnumJrF wYPLgWAx8KLs3 QAIhuYsrAsNfBNA1KgN8S HV0dZIicE5ohHqktbluhJ 9wOyc+SNLmCZTebgB4O4R kQbc2TCYmsDio VT2uvTKmRNkkXf6noVujg AurEN1vRWIkjkgsFEDlhO 9dEDOlmDBylQhrFA3eMCQ fcbuxz043SeRg ZYQ7KNLniSTvE4ZdaK0eW bQzQDVwUYMeJ0DzrJHbJD okC440KCzwIyQ1PEXaaxX rF5GyAVRfrKsy NgD1v0C7Dt8LVZ1xgBX9R 2BaInh1MOBemHtwKQ9xjU XtIHxvGj2aeXmywPpkYS3 wNTBpbjtwYWRk aH8wMEBbyDPvuBznCJ9wK WVohwdzb254ZbSrXZC1RV DguEHdN5OueS3xQkEfIPP fZUEiW7LvpPPq GEfhU432NMdgPqK3OTCvz gTcL3OiJELpeYvwMvR7j8 T6Ve2UYUNrSEBivZQzKgV 7F3MsNcsteOZ+ JF63QAWvZI77nIRblGGex 6albNc1HpJxZMOlPPW1xJ oaELyzg2CdZUPeD16swWW xa6K8RVZfkIof qYRvGvZyfPA7bQ2lUQeaq twdf5gnrgboNzkoc4fngo 65gX33F01mFIraDNJuJRX zMCUiIHZhbGln wa7ybR1uKx2+RYRnuMY4c MI5bU2hZqLwThZ4XNvtJ0 38FjNnjVZwIvghc4yea8a xrCl7YgVuZEEg uvNtoFhmXPM4f3FlYu73M 29sIHdpZHRoPSIyMCUiIH OqbJrppb2ucH1zLq1+PC9 tb4jdki48cO57 dHI+TPJzJZI9hWddCUrnV HJqyE1hEZklEqG2WLErFr AlbF02yMYgMDkvSe1bvRt ifGjzJW0jJDRn xnpfd837GjMpt1ztOZZrl TSmBUonKVF0E84yr6F1JM KqZSSiCUZ4cDE1jF5neMi nbjogbGVmdDsg loFlhXwzVMwoCHbfH914G IObiGsuWdSejJZcQ9snnt MRNF2oIyhyoUY+PHRkIHN 0eWxlPSdwYWRk zN1fVXWtC3g5MnXzMjT6S UijC2QtfuS5LYVfvPOgPR YjoEPQhQ5xzdsri8hdmvq gIzAwMDAwMDt0 PYt4HVZenAukAmAySFP9T oS7IHI6xLNksP6klUtycu ilrA8vYqr+RklOOjwvdGQ +OIYxLGY8kMry TCyaSNGumH5aSEXhI4b3K yTxFoY8IQicH7AiqlH5XZ JmsZEgCZBfvIJJmM9cpgq si4sbrrsaAmSi RLTeMJz1UTh7LSHawFuyT bOzIDP7HdI4GVE6xOLadA 7kiIimokuaeZ2cGex+TVJ OOjwvdGQ+PHRk NOE4sYeeSKoeNAHubC6tA TQtN2n5PmQsAuO8UYubB0 ExxjC3EGXjiAOgDMVxmPF UiC8zsfsuv3tw sitsZwMaPDFhGVa8LWp8H YGhjLzpDsXtBRW1AzL5WR N2cQUyyD5nuQjnidtdyJ7 wOyc+WEL1YFA4 CC79HP62U5PkKjzvuMDbe +PHRhYmxlIHdpZHRoPS euLGHwMhYrsWngAS5iFf5 yZGVyLWNvbGxh cHNl (more content not included)... Normal [facility] Ambulatory Visit Summaryon 0 12-01-2021 Ambulatory Visit Summary MELODY TORRES :1965 Visit Date:12/01/2021 Ambulatory Visit Instructions Your Diagnosis Asymptomatic microscopic hematuria Kidney stones Nocturia Tests Performed Urnls Dip Stick Auto w/o Microscopy POC 93805 Your Care Team Attending Physician - Arun GUERRERO, Sarita Lama Primary Care Physician - HEATH JACOB DO This Is Your Medications List Contact prescribing physician if questions or concerns alprazolam (Xanax 0.5 mg Tab) estradiol venlafaxine (venlafaxine 75 mg Cap-ER) Procedures Performed Colonoscopy, Hernia, Hysterectomy, Tonsillectomy. Discharge Vitals Heart Rate (Peripheral) 63 Blood Pressure 129/80 Height 162 cm Height 162.0 cm Weight 57 kg Weight 57.0 kg BMI 21.72 What to do next You Need to Schedule the Following Appointments Follow Up with Arun GUERRERO, Sarita Lama, URL, URO When: Where: [address], [place] [address]- [phone] Medications What How Much When Instructions Unchanged alprazolam (Xanax 0.5 mg Tab) 1 Tablets By Mouth Every day as needed for Sleep Contact prescribing physician if questions or concerns Unchanged estradiol Contact prescribing physician if questions or concerns Unchanged venlafaxine (venlafaxine 75 mg Cap-ER) Contact prescribing physician if questions or concerns Test Results Urnls Dip Stick Auto w/o Microscopy POC 70506 (12/01/2021) Bilirubin Urine Dipstick - Negative Blood Urine Dipstick - 1+ Small Glucose Urine Dipstick - Negative Ketones Urine Dipstick - Negative Leukocytes Urine Dipstick - Negative Nitrite Urine Dipstick - Negative Protein Urine Dipstick - Negative Specific [place] Urine Dipstick - 1.020 Urine Appearance Urine Dipstick - Clear Urine Color Urine Dipstick - Yellow Urobilinogen Urine Dipstick - Normal 0.2-1 EU/dl pH Urine Dipstick - 7 Allergies Bactrim Problems Ongoing - Any problem that you are currently receiving treatment for. Arthritis Asymptomatic microscopic hematuria Kidney stones Nocturia Education Materials Kidney Stones Kidney stones are rock-like masses that form inside of the kidneys. Kidneys are organs that make pee (urine). A kidney stone may move into other parts of the urinary tract, including: ? The tubes that connect the kidneys to the bladder (ureters). ? The bladder. ? The tube that carries urine out of the body (urethra). Kidney stones can cause very bad pain and can block the flow of pee. The stone usually leaves your body (passes) through your pee. You may need to have a doctor take out the stone. What are the causes? Kidney stones may be caused by: ? A condition in which certain glands make too much parathyroid hormone (primary hyperparathyroidism). ? A buildup of a type of crystals in the bladder made of a chemical called uric acid. The body makes uric acid when you eat certain foods. ? Narrowing (stricture) of one or both of the ureters. ? A kidney blockage that you were born with. ? Past surgery on the kidney or the ureters, such as gastric bypass surgery. What increases the risk? You are more likely to develop this condition if: ? You have had a kidney stone in the past. ? You have a family history of kidney stones. ? You do not drink enough water. ? You eat a diet that is high in protein, salt (sodium), or sugar. ? You are overweight or very overweight (obese). What are the signs or symptoms? Symptoms of a kidney stone may include: ? Pain in the side of the belly, right below the ribs (flank pain). Pain usually spreads (radiates) to the groin. ? Needing to pee often or right away (urgently). ? Pain when going pee (urinating). ? Blood in your pee (hematuria). ? Feeling like you may vomit (nauseous). ? Vomiting. ? Fever and chills. How is this treated? Treatment depends on the size, location, and makeup of the kidney stones. The stones will often pass out of the body through peeing. You may need to: ? Drink more fluid to help pass the stone. In some cases, you may be given fluids through an IV tube put into one of your veins at the hospital. ? Take medicine for pain. ? Make changes in your diet to help keep kidney stones from coming back. Sometimes, medical procedures are needed to remove a kidney stone. This may involve: ? A procedure to break up kidney stones using a beam of light (laser) or shock waves. ? Surgery to remove the kidney stones. Follow these instructions at home: Medicines ? Take twdu-tqj-hovphfb and prescription medicines only as told by your doctor. ? Ask your doctor if the medicine prescribed to you requires you to avoid driving or using heavy machinery. Eating and drinking ? Drink enough fluid to keep your pee pale yellow. You may be told to drink at least 8?10 glasses of water each day. This will help you pass the stone. ? If told by your doctor, change your diet. This (more content not included)... Normal [facility] Formson 12-01-2021 Forms [id number]:127 Normal [facility] Patient Educationon 12-02-19 Patient Education Urology Kidney Stones Kidney stones are rock-like masses that form inside of the kidneys. Kidneys are organs that make pee (urine). A kidney stone may move into other parts of the urinary tract, including: ? The tubes that connect the kidneys to the bladder (ureters). ? The bladder. ? The tube that carries urine out of the body (urethra). Kidney stones can cause very bad pain and can block the flow of pee. The stone usually leaves your body (passes) through your pee. You may need to have a doctor take out the stone. What are the causes? Kidney stones may be caused by: ? A condition in which certain glands make too much parathyroid hormone (primary hyperparathyroidism). ? A buildup of a type of crystals in the bladder made of a chemical called uric acid. The body makes uric acid when you eat certain foods. ? Narrowing (stricture) of one or both of the ureters. ? A kidney blockage that you were born with. ? Past surgery on the kidney or the ureters, such as gastric bypass surgery. What increases the risk? You are more likely to develop this condition if: ? You have had a kidney stone in the past. ? You have a family history of kidney stones. ? You do not drink enough water. ? You eat a diet that is high in protein, salt (sodium), or sugar. ? You are overweight or very overweight (obese). What are the signs or symptoms? Symptoms of a kidney stone may include: ? Pain in the side of the belly, right below the ribs (flank pain). Pain usually spreads (radiates) to the groin. ? Needing to pee often or right away (urgently). ? Pain when going pee (urinating). ? Blood in your pee (hematuria). ? Feeling like you may vomit (nauseous). ? Vomiting. ? Fever and chills. How is this treated? Treatment depends on the size, location, and makeup of the kidney stones. The stones will often pass out of the body through peeing. You may need to: ? Drink more fluid to help pass the stone. In some cases, you may be given fluids through an IV tube put into one of your veins at the hospital. ? Take medicine for pain. ? Make changes in your diet to help keep kidney stones from coming back. Sometimes, medical procedures are needed to remove a kidney stone. This may involve: ? A procedure to break up kidney stones using a beam of light (laser) or shock waves. ? Surgery to remove the kidney stones. Follow these instructions at home: Medicines ? Take xkhv-tmp-owtpwwb and prescription medicines only as told by your doctor. ? Ask your doctor if the medicine prescribed to you requires you to avoid driving or using heavy machinery. Eating and drinking ? Drink enough fluid to keep your pee pale yellow. You may be told to drink at least 8?10 glasses of water each day. This will help you pass the stone. ? If told by your doctor, change your diet. This may include: ? Limiting how much salt you eat. ? Eating more fruits and vegetables. ? Limiting how much meat, poultry, fish, and eggs you eat. ? Follow instructions from your doctor about eating or drinking restrictions. General instructions ? Collect pee samples as told by your doctor. You may need to collect a pee sample: ? 24 hours after a stone comes out. ? 8?12 weeks after a stone comes out, and every 6?12 months after that. ? Strain your pee every time you pee (urinate), for as long as told. Use the strainer that your doctor recommends. ? Do not throw out the stone. Keep it so that it can be tested by your doctor. ? Keep all follow-up visits as told by your doctor. This is important. You may need follow-up tests. How is this prevented? To prevent another kidney stone: ? Drink enough fluid to keep your pee pale yellow. This is the best way to prevent kidney stones. ? Eat healthy foods. ? Avoid certain foods as told by your doctor. You may be told to eat less protein. ? Stay at a healthy weight. Where to find more information ? National Kidney Foundation (NKF): www.kidney.org ? [employer] (UCF): www.urologyhealth.org Contact a doctor if: ? You have pain that gets worse or does not get better with medicine. Get help right away if: ? You have a fever or chills. ? You get very bad pain. ? You get new pain in your belly (abdomen). ? You pass out (faint). ? You cannot pee. Summary ? Kidney stones are rock-like masses that form inside of the kidneys. ? Kidney stones can cause very bad pain and can block the flow of pee. ? The stones will often pass out of the body through peeing. ? Drink enough fluid to keep your pee pale yellow. This information is not intended to replace advice given to you by your health care provider. Make sure you discuss any questions you have with your health care provider. Document Released: 11/07/2008 Document Revised: 10/08/2019 Document Reviewed: 10/08/2019 [employer] Patient Education ? 2019 [employer] Normal [facility] Physician Referralon 022 Physician Referral [id number]# 1.00CD:127 Normal [facility] URINALYSISOrdered By: Deo land on 12-01-2021 Bilirubin Ql (U) Negative (12/01/21 11:27 AM) Normal Negative [facility] UA Auto SS Clarity (U) Clear (12/01/21 11:27 AM) Normal Clear [facility] UA Auto SS Color (U) Yellow (12/01/21 11:27 AM) Normal Yellow [facility] UA Auto SS Epithelial cells.squamous LM.HPF (Urine sed) [#/Area] 0-2 /HPF Normal 0-2/HPF [facility] UA Aut o SS Glucose Test strip (U) [Mass/Vol] Negative (12/01/21 11:27 AM) Normal Negative [facility] UA Auto SS Hemoglobin Ql (U) Trace *ABN* (12/01/21 11:27 AM) Invalid Interpretation Code Negative [facility] UA Auto SS Ketones (U) [Mass/Vol] Negative (12/01/21 11:27 AM) Normal Negative [facility] UA Auto SS [place].plasma/[place]. RBC (Bld) [Mass ratio] 0-3 /HPF Normal 0-3/HPF [facility] UA A uto SS Nitrite Ql (U) Negative (12/01/21 11:27 AM) Normal Negative [facility] UA Auto SS pH (U) 6.5 *NA* (12/01/21 11:27 AM) Invalid Interpretation Code 5.0 - 9.0 [facility] UA Auto SS Protein (U) [Mass/Vol] Negative (12/01/21 11:27 AM) Normal Negative [facility] UA Auto SS Specific gravity (U) [Rel density] 1.015 *NA* (12/01/21 11:27 AM) Invalid Interpretation Code 1.005 - 1.030 [facility] UA Auto SS UA Spec Desc Clean Catch (12/01/21 11:27 AM) Normal [facility] UA Auto SS Urobilinogen Qn (U) 0.4729643 {Silva'U}/dL Normal 0.0 - 1.0 EU/dL [facility] UA Auto SS WBC Auto Ql (U) Negative (12/01/21 11:27 AM) Normal Negative [facility] UA Auto SS WBC LM.HPF (Urine sed) [#/Area] 0-5 /HPF Normal 0-5/HPF [facility] UA Auto SS Urinalysison 12-01-2021 Bilirubin Ql (U) Negative Normal Negative [facility] Comment on above: Performed By: #### 1 [id number] #### [facility] [address] [place] [address] Clarity (U) CLEAR Normal Clear [facility] Comment on above: Performed By: #### 1 [id number] #### [facility] [address] [place] [address] Color (U) YELLOW Normal Yellow [facility] Comment on above: Performed By: #### 1 [id number] #### [facility] [address] [place] [address] Epithelial cells.squamous LM.HPF (Urine sed) [#/Area] 0-2 Normal 0-2 [facility] Comment on above: Performed By: #### 1 [id number] #### [facility] [address] [place] [address] Glucose Test strip (U) [Mass/Vol] Negative Normal Negative [facility] Comment on above: Performed By: #### 1 [id number] #### [facility] [address] [place] [address] Hemoglobin Ql (U) TRACE Abnormal Negative [facility] Comment on above: Performed By: #### 1 [id number] #### [facility] [address] [place] [address] Ketones (U) [Mass/Vol] Negative Normal Negative [facility] Comment on above: Performed By: #### 1 [id number] #### [facility] [address] [place] [address] [place].plasma/[place]. RBC (Bld) [Mass ratio] 0-3 Normal 0-3 [facility] Comment on above: Performed By: #### 1 [id number] #### [facility] [address] [place] [address] Nitrite Ql (U) Negative Normal Negative [facility] Comment on above: Performed By: #### 1 [id number] #### [facility] [address] [place] [address] pH (U) 6.5 [pH] Invalid Interpretation Code 5.0-9.0 [facility] Comment on above: Performed By: #### 1 [id number] #### [facility] [address] [place] [address] Protein (U) [Mass/Vol] Negative Normal Negative [facility] Comment on above: Performed By: #### 1 [id number] #### [facility] [address] [place] [address] Specific gravity (U) [Rel density] 1.015 Invalid Interpretation Code 1.005-1.030 [facility] Comment on above: Performed By: #### 1 [id number] #### [facility] [address] [place], [place] [id number] Type of Urine collection method Clean Catch Normal [facility] Comment on above: Performed By: #### [id number] #### [facility] [address] [place] [address] Urobilinogen Qn (U) 0.2 {Silva'U}/dL Normal 0.0-1.0 [facility] Comment on above: Performed By: #### [id number] #### [facility] [address] [place] [address] WBC Auto Ql (U) Negative Normal Negative [facility] Comment on above: Performed By: #### 1 [id number] #### [facility] [address] [place] [address] WBC LM.HPF (Urine sed) [#/Area] 0-5 Normal 0-5 [facility] Comment on above: Performed By: #### 1 [id number] #### [facility] [address] [place] [address] Urology Office/Clinic Noteon 12-01-2021 Urology Office/Clinic Note Chief Complaint New patinet hematuria HPI Staff Melody is here today as a new patient referred for gross hematuria. UA random w/microscopic done on 11/02/21 showed trace-intact. CT abd/pelvis done on 10/30/21 impression showed nonobstructing right nephrolithiasis, no additional findings to account for pt symptoms, marked degenerative disc disease of the lower lumbar spine. Pt says this has been going on for over 3 years she say blood at first but no longer but when she sees her PCP they check her urine and find blood. Dysuria: _Denies Incomplete bladder emptying: _Denies Hematuria: _Denies, UA shows small Frequency: _Denies Urgency: _Denies Nocturia: _1x Stream: _steady Leaking: _Denies Post void dripping: _Denies Wearing pads/ Depends: _Denies Urge incontinence: _Denies Stress incontinence: _Denies Incontinence without Sensory Awareness: _Denies Abdominal pain: _Denies Flank pain: _Denies Sexual complaints: _ History of Present Illness I have reviewed and verified the staff HPI to be accurate for this encounter. Reviewed external records (CT, notes and labs), referral and new pt paperwork Review of Systems PHQ Score Initial Depression Screen Score: 0 ROS - Provider Constitutional: denies weight loss, denies hot flashes. Eyes: denies eye problems. Gastrointestinal: denies nausea, denies vomiting. Cardiovascular: denies chest pain or angina. Integumentary: no dryness Musculoskeletal: denies musculoskeletal symptoms. ENMT: denies otolaryngeal symptoms. Respiratory: no shortness of breath. Heme/Lymph: denies easy bleeding tendency, denies easy bruising tendency. Psychiatric: no confusion, no anxiety. Genitourinary: see HPI Physical Exam Vitals & Measurements HR: 63(Peripheral) BP: 129/80 HT: 162 cm HT: 162.0 cm WT: 57 kg WT: 57.0 kg BMI: 21.72 General Appearance: alert , no acute distress, well nourished, well developed female. Head: normocephalic . Eyes: normal orbit and globe. ENMT: normal examination of external ears. Chest: symmetric chest rise, respirations non labored . Cardiovascular: regular rate and rhythm. Abdomen: soft, non distended, no tenderness Genitourinary: bladder nonpalpable, no flank tenderness. Skin: warm, dry, no bruising. Psychiatric: cooperative, affect appropriate for age, normal judgement, euthymic mood. Assessment/Plan 1. Asymptomatic microscopic hematuria (R31.21: Asymptomatic microscopic hematuria) UA today shows small. Pt states that many years ago when she wiped she saw pink, no actual gross hematuria. Pt states that every time she sees her PCP she is told she has blood in her urine - review shows UA tract intact 0-2 RBC (neg for micro hematuria) CT AP with IV contrast at [facility] without hydro or urinary tract abnormalities. 5 mm R mid-lower pole non obstructing stone, asx. PT states she is on a Vaginal cream and Estradiol s/p hysterectomy for fibroids and BL oophorectomy given family hx of ovarian cancer and variant mutation on 23Me (neg BRCA1-2). Pt states at this time she is not interested in doing a hematuria work-up at this time given no true micro or gross hematuria. Never a smoker. No risk factors. - Discussed with pt that we will send her urine for a Micro UA today. AUA microhematuria risk assessment intermediate based on age alone if > 3 RBC would recommend cystoscopy to complete workup . Will call if RBC confirmed Educated pt that if she even visibly sees blood in her urine to contact our office so we can go forward with the hematuria work-up. If pt has any concerns she can contact our office. Pt understands and acknowledges. 2. Kidney stones (N20.0: Calculus of kidney) CT abd/pelvis done on 10/30/21 impression showed nonobstructing right nephrolithiasis Educated pt on the results of her CT. Pt denies having a history of stones. Declined monitoring or workup for stones. Counseled on risks/implications of stone including growth, passage and infection. Counseled on dietary modifications Total time spent preparing the chart, conducting of the encounter with the patient and family and time spent documenting, reviewing, and ordering tests was 45 minutes Follow-up With When Contact Information Arun GUERRERO, Sarita Lama, URL, URO [address] [facility], [place] [address]- [phone] Additional Instructions: PRN Patient Education Kidney Stones, Tstu-ce-Ocxv Meaghan Lew_, personally scribed for Dr. Dias _ on 12/01/2021 09:41:42. . Documentation recorded by the scribeMeaghan, accurately reflects the services(s) I performed and decisions made by me. Authenticated by Dr. Dias on 12/01/2021 09:59:13. Problem List/Past Medical History Ongoing Arthritis Asymptomatic microscopic hematuria Kidney stones Nocturia Historical No qualifying data Procedure/Surgical History Colonoscopy, Hernia, Hysterectomy, Tonsillectomy. Medications estradiol venlafaxine 75 mg Cap-ER Xanax (more content not included)... Normal [facility] Comment on above: Result Comment: Elec tronically Signed By: Sarita Dias MD\.br\Date and Time Signed: 12/01/21 09:59 EDT\.br\Electronically Co-Signed By: Meaghan Singh MA\.br\Date and Time Co-Signed: 12/01/21 09:43 EDT COVID Quick Testingon 2020 Result Negative [facility] Other Vital Signs Date Time Vital Sign Value Performing Clinician Facility 02-03-2025 13:56-0400 Body height 162.56 cm Heath Ball DO Work Phone: [facility] 02-03-2025 13:56-0400 Body mass index (BMI) [Ratio] 21.1 kg/m2 Heath Ball DO Work Phone: [facility] 02-03-2025 13:56-0400 Body temperature 98.1 [degF] Heath Ball DO Work Phone: [facility] 02-03-2025 13:56-0400 Body weight 55.79 kg Heath Ball DO Work Phone: [facility] 02-03-2025 13:56-0400 Diastolic blood pressure 76 mm[Hg] Heath Ball DO Work Phone: [facility] 02-03-2025 13:56-0400 Heart rate 67 /min Heath Ball DO Work Phone: [facility] 02-03-2025 13:56-0400 SaO2% (BldA) [Mass fraction] 98 % Heath Ball DO Work Phone: [facility] 02-03-2025 13:56-0400 Systolic blood pressure 137 mm[Hg] Heath Ball DO Work Phone: [facility] 12-02-2024 08:34-0400 Body height 162.6 cm Filiberto Ayala MD Work Phone: [facility] 12-02-2024 08:34-0400 Body mass index (BMI) [Ratio] 20.6 kg/m2 Filiberto Ayala MD Work Phone: [facility] 12-02-2024 08:34-0400 Body weight 54.43 kg Filiberto Ayala MD Work Phone: [facility] 11-15-2024 11:37-0400 Body height 162.56 cm Heath Ball DO Work Phone: [facility] 11-15-2024 11:37-0400 Body mass index (BMI) [Ratio] 21 kg/m2 Heath Ball DO Work Phone: [facility] 11-15-2024 11:37-0400 Body weight 55.56 kg Heath Ball DO Work Phone: [facility] 11-15-2024 11:37-0400 Diastolic blood pressure 83 mm[Hg] Heath Ball DO Work Phone: [facility] 11-15-2024 11:37-0400 Heart rate 71 /min Heath Ball DO Work Phone: [facility] 11-15-2024 11:37-0400 Respiratory rate 12 /min Heath Ball DO Work Phone: [facility] 11-15-2024 11:37-0400 Systolic blood pressure 143 mm[Hg] Heath Ball DO Work Phone: [facility] 12-15-2023 10:36-0400 Diastolic blood pressure 70 mm[Hg] [facility] 12-15-2023 10:36-0400 Heart rate 73 /min [facility] 12-15-2023 10:36-0400 SaO2% (BldA) [Mass fraction] 99 % [facility] 12-15-2023 10:36-0400 Systolic blood pressure 102 mm[Hg] [facility] 10-04-2023 18:41-0400 Body height 162.56 cm [facility] 10-04-2023 18:41-0400 Body mass index (BMI) [Ratio] 21.9 kg/m2 [facility] 10-04-2023 18:41-0400 Body temperature 98.4 [degF] [facility] 10-04-2023 18:41-0400 Body weight 58.11 kg [facility] 10-04-2023 18:41-0400 Diastolic blood pressure 70 mm[Hg] [facility] 10-04-2023 18:41-0400 Heart rate 77 /min [facility] 10-04-2023 18:41-0400 Respiratory rate 16 /min [facility] 10-04-2023 18:41-0400 SaO2% (BldA) [Mass fraction] 96 % [facility] 10-04-2023 18:41-0400 Systolic blood pressure 110 mm[Hg] [facility] 07-28-2023 09:12-0500 Body height 162.56 cm DO Heath Ball Work Phone: [facility] 07-28-2023 09:12-0500 Body mass index (BMI) [Ratio] 21.8 kg/m2 DO Heath Ball Work Phone: [facility] 07-28-2023 09:12-0500 Body weight 57.6 kg DO Heath Ball Work Phone: [facility] 07-28-2023 09:12-0500 Diastolic blood pressure 84 mm[Hg] DO Heath Ball Work Phone: [facility] 07-28-2023 09:12-0500 Heart rate 76 /min DO Heath Ball Work Phone: [facility] 07-28-2023 09:12-0500 Respiratory rate 12 /min DO Heath Ball Work Phone: [facility] 07-28-2023 09:12-0500 Systolic blood pressure 125 mm[Hg] DO Heath Ball Work Phone: [facility] 05-24-2023 16:15-0500 Body height 162.56 cm Tyson Delgado Other [facility] 05-24-2023 16:15-0500 Diastolic blood pressure 80 mm[Hg] Tyson Delgado Other [facility] 05-24-2023 16:15-0500 SaO2% (BldA) [Mass fraction] 98 % Tyson Delgado Other [facility] Other 05-24-2023 16:15-0500 Systolic blood pressure 130 mm[Hg] Tyson Delgado Other [facility] 05-08-2023 16:15-0500 Body height 162.56 cm Tyson Delgado Other [facility] 05-08-2023 16:15-0500 SaO2% (BldA) [Mass fraction] 97 % Tysonkayla Delgado Other [facility] Other 05-05-2023 12:00-0500 Body height 162.56 cm DO Heath Ball Work Phone: [facility] 05-05-2023 12:00-0500 Diastolic blood pressure 80 mm[Hg] DO Heath Ball Work Phone: [facility] 05-05-2023 12:00-0500 Systolic blood pressure 130 mm[Hg] DO Heath Ball Work Phone: [facility] 02-16-2023 15:30-0400 Body height 162.56 cm Tyson Delgado Other [facility] Other 02-16-2023 15:30-0400 Body mass index (BMI) [Ratio] 21.45 kg/m2 Tyson Delgado Other [facility] Other 02-16-2023 15:30-0400 Body weight 56.7 kg Tyson Delgado Other [facility] Other 02-16-2023 15:30-0400 Diastolic blood pressure 68 mm[Hg] Tyson Delgado Other [facility] Other 02-16-2023 15:30-0400 Systolic blood pressure 112 mm[Hg] Tyson Delgado Other [facility] Other 12-16-2022 11:45-0400 Body height 162.56 cm Tyson Delgado Other [facility] Other 12-16-2022 11:45-0400 Body mass index (BMI) [Ratio] 21.56 kg/m2 Tyson Delgado Other [facility] Other 12-16-2022 11:45-0400 Body weight 56.97 kg Tyson Delgado Other [facility] Other 12-16-2022 11:45-0400 SaO2% (BldA) [Mass fraction] 97 % Tyson Delgado Other [facility] Other 11-28-2022 08:30-0400 Body height 162.56 cm Heath Ball Other [facility] Other 11-28-2022 08:30-0400 Body mass index (BMI) [Ratio] 22.14 kg/m2 Heath Ball Other [facility] Other 11-28-2022 08:30-0400 Body weight 58.51 kg Heath Ball Other [facility] Other 11-28-2022 08:30-0400 Diastolic blood pressure 72 mm[Hg] Heath Ball Other [facility] Other 11-28-2022 08:30-0400 Respiratory rate 12 /min Heath Ball Other [facility] Other 11-28-2022 08:30-0400 Systolic blood pressure 107 mm[Hg] Heath Ball Other [facility] Other 09-15-2022 10:30-0400 Body height 162.56 cm Heath Ball Other [facility] Other 09-15-2022 10:30-0400 Body mass index (BMI) [Ratio] 22.11 kg/m2 Heath Ball Other [facility] Other 09-15-2022 10:30-0400 Body weight 58.42 kg Heath Ball Other [facility] Other 09-15-2022 10:30-0400 Diastolic blood pressure 75 mm[Hg] Heath Ball Other [facility] Other 09-15-2022 10:30-0400 Respiratory rate 12 /min Heath Ball Other [facility] Other 09-15-2022 10:30-0400 Systolic blood pressure 133 mm[Hg] Heath Ball Other [facility] Other 06-08-2022 14:45-0500 Body height 162.56 cm Daly Padillamond Other [facility] Other 06-08-2022 14:45-0500 Body mass index (BMI) [Ratio] 21.28 kg/m2 Daly Raisa Other [facility] Other 06-08-2022 14:45-0500 Body temperature 98.2 [degF] Daly Raisa Other [facility] Other 06-08-2022 14:45-0500 Body weight 56.25 kg Daly Raisa Other [facility] Other 06-08-2022 14:45-0500 Respiratory rate 18 /min Daly Raisa Other [facility] Other 06-08-2022 14:45-0500 SaO2% (BldA) [Mass fraction] 98 % Daly Raisa Other [facility] Other 12-01-2021 09:23-0400 Blood Pressure Location Sarita Lue [facility] 12-01-2021 09:23-0400 Diastolic blood pressure 80 mm[Hg] Sarita Lue [facility] 12-01-2021 09:23-0400 Heart rate 63 /min [facility] 12-01-2021 09:23-0400 Systolic blood pressure 129 mm[Hg] Sarita Lue [facility] 05-21-2021 17:30-0500 Body height 162.56 cm Dayl Kline Other [facility] Other 05-21-2021 17:30-0500 Body temperature 97.1 [degF] Daly Kline Other [facility] Other 05-21-2021 17:30-0500 SaO2% (BldA) [Mass fraction] 97 % Daly Kline Other [facility] Other 03-22-2021 17:30-0400 Body height 162.56 cm Mana Patino Other [facility] Other 03-22-2021 17:30-0400 Body mass index (BMI) [Ratio] 21.28 kg/m2 Mana Patino Other [facility] Other 03-22-2021 17:30-0400 Body temperature 96.9 [degF] Mana Patino Other [facility] Other 03-22-2021 17:30-0400 Body weight 56.25 kg Mana Patino Other [facility] Other 03-22-2021 17:30-0400 SaO2% (BldA) [Mass fraction] 96 % Mana Patino Other [facility] Other Encounters Encounter Date Encounter Type Care Provider Facility Start: 02-03-2025 End: 02-03-2025 ambulatory Heath Jacob DO Work Phone: [facility] Work Phone: Start: 02-03-2025 End: 02-03-2025 Patient encounter procedure Soumya Medina [facility] [place] Work Phone: Start: 12-02-2024 End: 12-02-2024 Bamboo flowsheet Filiberto Ayala MD Work Phone: [facility] Start: 12-02-2024 End: 12-02-2024 Roselineo flowsheet Filiberto Ayala MD Work Phone: [facility] Start: 12-02-2024 End: 12-02-2024 ambulatory FILIBERTO AYALA Not Available Start: 12-02-2024 End: 12-02-2024 Office outpatient visit 25 minutes Filiberto Ayala MD Work Phone: [facility] Comment on above: Adrenal cortex hypof unction (HCC) (Primary Dx); Euthyroid sick syndrome; Chronic fatigue Start: 11-15-2024 End: 11-15-2024 Patient encounter procedure Heath Jacob DO [facility] Work Phone: Start: 11-15-2024 End: 11-15-2024 Patient encounter status Heath Jacob [facility] Start: 10-07-2024 End: 10-07-2024 ambulatory [facility] Work Phone: Start: 10-07-2024 End: 10-07-2024 Patient encounter procedure [facility] Work Phone: Start: 10-02-2024 End: 10-02-2024 Office outpatient visit 25 minutes Filiberto Ayala MD Work Phone: [facility] Comment on above: Other noninfectious gastroenteritis (Primary Dx); Gastrointestinal food allergy; Bloating; Euthyroid sick syndrome; Hair loss; Chronic fatigue; [place] Start: 10-02-2024 End: 10-02-2024 ambulatory FILIBERTO AYALA Not Available Start: 10-02-2024 End: 10-02-2024 Bamboo flowsheet Filiberto Ayala MD Work Phone: [facility] Start: 10-02-2024 End: 10-02-2024 Apolinar Ayala MD Work Phone: [facility] Start: 08-02-2024 End: 08-02-2024 ambulatory BLANCHE VU Not Available Start: 12-15-2023 End: 12-15-2023 ambulatory [facility] Work Phone: Start: 12-15-2023 End: 12-15-2023 Patient encounter procedure [facility] [place] Work Phone: Start: 10-04-2023 End: 10-04-2023 Patient encounter procedure [facility] [place] Work Phone: Start: 10-03-2023 End: 10-03-2023 ambulatory [facility] Work Phone: Start: 10-03-2023 End: 10-03-2023 Patient encounter procedure [facility] Work Phone: Start: 08-26-2023 Non-patient / Non-visit [facility] Work Phone: Start: 07-28-2023 Patient encounter status DO Be njamin Ball Work Phone: [facility] Start: 07-28-2023 End: 07-28-2023 ambulatory DO Heath Nohemi Work Phone: [facility] Work Phone: Start: 07-28-2023 End: 07-28-2023 Encounter for general adult medical examination without abnormal findings DO Heath Ball Work Phone: [facility] Start: 07-28-2023 End: 07-28-2023 Patient encounter procedure DO Heath Ball Work Phone: [facility] Work Phone: Start: 06-26-2023 End: 06-26-2023 ambulatory Tysonkayla Delgado Other [facility] Other Start: 06-26-2023 Telephone encounter Tyson Delgado [facility] Start: 06-16-2023 End: 06-16-2023 ambulatory Heath Jacob Other [facility] Other Start: 06-16-2023 Telephone encounter Heath SANCHEZ [facility] Start: 06-09-2023 End: 06-09-2023 ambulatory Heath Jacob Other [facility] Other Start: 06-09-2023 Office outpatient vi sit 15 minutes Heath Jacob [facility] Start: 06-09-2023 Patient encounter procedure DO Heath Nohemi Work Phone: [facility]- Start: 06-04-2023 End: 06-04-2023 ambulatory Heath Jacob Other [facility] Other Start: 06-04-2023 Telephone encounter Heath Jacob [facility] Start: 05-24-2023 End: 05-24-2023 ambulatory Tyson Delgado Other [facility] Other Start: 05-24-2023 Office outpatient vi sit 15 minutes Tyson Danny [facility] Start: 05-24-2023 End: 05-24-2023 Patient encounter procedure DO Heath Ball Work Phone: [facility] Work Phone: Start: 05-08-2023 End: 05-08-2023 ambulatory Tysonkayla Delgado Other [facility] Other Start: 05-08-2023 Office outpatient vi sit 15 minutes Tysonkayla Delgado [facility] Start: 05-08-2023 End: 05-08-2023 Patient encounter procedure DO Heath Ball Work Phone: [facility] Work Phone: Start: 05-05-2023 End: 05-05-2023 ambulatory Heath Ball Facility:[facility] Start: 05-05-2023 End: 05-05-2023 ambulatory DO Heath Ball Work Phone: [facility] Work Phone: Start: 05-05-2023 End: 05-05-2023 Patient encounter procedure DO Heath Ball Work Phone: [facility] [place] Work Phone: Start: 05-05-2023 End: 05-05-2023 Patient encounter procedure DO Heath Ball Work Phone: [facility] [place] Work Phone: Start: 02-16-2023 End: 02-16-2023 ambulatory Tyson Delgado Other [facility] Other Start: 02-16-2023 Patient encounter procedure Tysonkayla Delgado [facility] Start: 01-10-2023 End: 01-10-2023 ambulatory Tyson Steve Delgado Facility:[facility] Start: 01-10-2023 End: 01-10-2023 ambulatory DO Heath Ball Work Phone: [facility] Work Phone: Start: 01-10-2023 End: 01-10-2023 Patient encounter procedure DO Heath Jacob Work Phone: [facility] [place] Work Phone: Start: 01-09-2023 End: 01-09-2023 ambulatory Heath Nohemi Facility:[facility] Start: 01-09-2023 End: 01-09-2023 ambulatory DO Heath Jacob Work Phone: [facility] Work Phone: Start: 01-09-2023 End: 01-09-2023 Patient encounter procedure DO Heath Jacob Work Phone: [facility] [place] Work Phone: Start: 01-05-2023 End: 01-05-2023 ambulatory Tyson Danny Other [facility] Other Start: 01-05-2023 Telephone encounter Tyson Danny [facility] Start: 12-16-2022 End: 12-16-2022 ambulatory Tyson Danny Other [facility] Other Start: 12-16-2022 Office outpatient vi sit 25 minutes Tyson Delgado [facility] [place] Start: 11-28-2022 End: 11-28-2022 ambulatory Heath Jacob Other [facility] Other Start: 11-28-2022 Office outpatient vi sit 15 minutes Heath Jacob [facility] Start: 11-17-2022 End: 11-17-2022 ambulatory Heath Jacob Other [employer] Other Start: 11-17-2022 Telephone encounter Heath Jacob [facility] Start: 11-04-[address] HEATH JACOB Facili ty:[facility] Start: 10-13-2022 End: 10-13-2022 ambulatory Heath Jacob Other [facility] Other Start: 10-13-2022 Telephone encounter Heath Jacob [facility] Start: 10-06-2022 Encounter for genera l adult medical examination without abnormal findings DR HEATH AJCOB [facility] Start: 10-03-2022 End: 10-04-[address] HEATH JACOB Facility:[facility] Start: 10-03-2022 End: 10-04-2022 Encounter for general adult medical examination without abnormal findings DR HEATH JACBO Facility:[facility] Start: 09-15-2022 End: 09-15-2022 ambulatory Heath Jacob Other [facility] Other Start: 09-15-2022 Encounter for genera l adult medical examination without abnormal findings Heath Jacob [facility] Start: 09-15-2022 Periodic preventive med est patient 40-64yrs Heath Jacob [facility] Start: 08-06-2022 End: 08-07-[address] HEATH JACOB Facility:[facility] Start: 07-15-2022 End: 07-15-2022 ambulatory Heath Jacob Other [facility] Other Start: 07-15-2022 Telephone encounter Heath SANCHEZ [facility] Start: 06-21-2022 End: 06-21-2022 ambulatory Heath Jacob Other [facility] Other Start: 06-21-2022 Telephone encounter Heath Jacob [facility] Start: 06-13-2022 End: 06-13-2022 ambulatory Heath Jacob Other [facility] Other Start: 06-13-2022 Telephone encounter Heath Jacob [facility] Start: 06-08-2022 End: 06-08-2022 ambulatory Daly Kline Other [facility] Other Start: 06-08-2022 Office outpatient vi sit 15 minutes Daly Kline [facility] [place] Start: 06-07-2022 End: 06-07-2022 ambulatory Heath Jacob Other [facility] Other Start: 06-07-2022 Telephone encounter [facility] Start: 06-03-2022 End: 06-04-[address] HEATH JACOB Facility:[facility] Start: 04-01-2022 End: 04-02-2022 ambulatory LEONARD SOLIS Facility:[facility] Start: 02-24-2022 End: 02-25-[address] HEATH JACOB Facility:[facility] Start: 02-04-2022 End: 02-05-[address] HEATH JACOB Facility:[facility] Start: 12-01-2021 End: 12-01-2021 Lab Drop off Sarita Dias [facility] Start: 12-01-2021 End: 12-01-2021 Patient encounter procedure Sarita Dias [facility] Start: 11-25-2021 Annual wellness visit Tyson arvizu Other [facility] Other Start: 10-15-2021 Adult health examination Agnelina Delgado Other [facility] Other Start: 05-21-2021 (URG) Urgent Care Visit Daly thakkar [facility] [place] Start: 05-21-2021 End: 05-21-2021 ambulatory Daly Kline Other [facility] Other Start: 03-22-2021 Office outpatient vi sit 15 minutes Mana Patino [facility] [place] Start: 09-14-2020 End: 09-14-2020 Gynecological examination normal Tyson Delgado Other [facility] Other Procedures Date Procedure Procedure Detail Performing Clinician Start: 08-02-2024 Mammography Filiberto reynoso MD Work Phone: Start: 05-05-2023 Plain X-ray of left hip DO [facility] Phone: Start: 01-09-2023 Plain X-ray of right shoulder DO [facility] Phone: Start: 01-09-2023 X-ray of cervical spine DO [facility] Phone: Start: 05-12-2017 Pre-surgery evaluation Tyson Delgado Other Start: 03-04-2016 General examination of patient Tyson Delgado Other Colonoscopy Sarita Dias Cosmetic surgery Mana bal Other Depression screening Tyson eDlgado Other H/O: hysterectomy S/P laparoscop ic hysterectomy DO [facility] Work Phone: Comment on above: Problem List clean-u p per request of Phys. EHR Cmte Hernia of abdominal cavity (disorder) Sarita Dias Hysterectomy Sarita Dias Tonsillectomy Sarita Dias Plan of Treatment Date Care Activity Detail Author Start: 05-12-2028 Screening for malign ant neoplasm of cervix [facility] Start: 08-02-2025 Screening for malign ant neoplasm of breast Mammogram [facility] Start: 05-22-2025 End: 05-22-2025 Patient encounter procedure 05/22/2025 3:15 PM EST Office Visit [facility] [address] [place] [address] Blanche Vu, DO [address] [place] [address] [facility] Start: 03-03-2025 End: 03-03-2025 Patient encounter procedure 03/03/2025 8:00 AM EDT Office Visit [facility] [address] [place] [address] Filiberto Ayala MD [address] [place] [address] [facility] Start: 02-01-2025 End: 12-02-2025 T3, reverse T3, reverse Lab Routine Chronic fatigue Expected: 02/01/2025, Expires: 12/02/2025 [facility] Comment on above: Expected: 02/01/2025 , Expires: 12/02/2025 Start: 02-01-2025 End: 12-02-2025 Thyrotropin [Units/volume] in Serum or Plasma TSH Lab Routine Chronic fatigue Expected: 02/01/2025, Expires: 12/02/2025 [facility] Comment on above: Expected: 02/01/2025 , Expires: 12/02/2025 Start: 02-01-2025 End: 12-02-2025 Thyroxine (T4) free [Mass/volume] in Serum or Plasma T4, free Lab Routine Chronic fatigue Expected: 02/01/2025, Expires: 12/02/2025 [facility] Comment on above: Expected: 02/01/2025 , Expires: 12/02/2025 Start: 02-01-2025 End: 12-02-2025 Triiodothyronine (T3) [Mass/volume] in Serum or Plasma T3 Lab Routine Chronic fatigue Expected: 02/01/2025, Expires: 12/02/2025 [facility] Work Phone: Comment on above: Expected: 02/01/2025 , Expires: 12/02/2025 Start: 02-01-2025 End: 12-02-2025 Triiodothyronine (T3) Free [Mass/volume] in Serum or Plasma T3, free Lab Routine Chronic fatigue Expected: 02/01/2025, Expires: 12/02/2025 [facility] Comment on above: Expected: 02/01/2025 , Expires: 12/02/2025 Start: 11-15-2024 Patient referral [facility] Work Phone: Start: 10-03-2024 End: 10-02-2025 Iron and Iron binding capacity panel - Serum or Plasma Iron and TIBC Lab Routine Hair loss Chronic fatigue Expected: 10/03/2024, Expires: 10/02/2025 [facility] Comment on above: Expected: 10/03/2024 , Expires: 10/02/2025 Start: 10-03-2024 End: 10-02-2025 T3, reverse T3, reverse Lab Routine Euthyroid sick syndrome Hair loss Chronic fatigue Expected: 10/03/2024, Expires: 10/02/2025 [facility] Comment on above: Expected: 10/03/2024 , Expires: 10/02/2025 Start: 10-03-2024 End: 10-02-2025 Thyrotropin [Units/volume] in Serum or Plasma TSH Lab Routine Euthyroid sick syndrome Hair loss Chronic fatigue Expected: 10/03/2024, Expires: 10/02/2025 [facility] Comment on above: Expected: 10/03/2024 , Expires: 10/02/2025 Start: 10-03-2024 End: 10-02-2025 Thyroxine (T4) free [Mass/volume] in Serum or Plasma T4, free Lab Routine Euthyroid sick syndrome Hair loss Chronic fatigue Expected: 10/03/2024, Expires: 10/02/2025 [facility] Comment on above: Expected: 10/03/2024 , Expires: 10/02/2025 Start: 10-03-2024 End: 10-02-2025 Triiodothyronine (T3) [Mass/volume] in Serum or Plasma T3 Lab Routine Euthyroid sick syndrome Hair loss Chronic fatigue Expected: 10/03/2024, Expires: 10/02/2025 [facility] Work Phone: Comment on above: Expected: 10/03/2024 , Expires: 10/02/2025 Start: 10-03-2024 End: 10-02-2025 Triiodothyronine (T3) Free [Mass/volume] in Serum or Plasma T3, free Lab Routine Euthyroid sick syndrome Hair loss Chronic fatigue Expected: 10/03/2024, Expires: 10/02/2025 [facility] Comment on above: Expected: 10/03/2024 , Expires: 10/02/2025 Start: 01-10-2023 MR Cervical spine WO contrast [facility] Start: 01-10-2023 MRI of cervical spin e without contrast MR cervical spine wo con [facility] Start: 12-11-1987 Screening for malign ant neoplasm of cervix Pap Smear [facility] Start: 1966 Screening for malign ant neoplasm of colon [facility] metabo lic 1999 panel - Serum or Plasma [facility] Comprehensive metabo lic 1999 panel - Serum or Plasma [facility] Patient Education [facility] Work Phone: Patient referral [facility] Work Phone: XR Lumbar spine 4 Views [facility] Immunizations Immunization Date Immunization Notes Care Provider Fa [facility] 04-15-2024 influenza, injectabl e, madin lauren canine kidney, preservative free Filiberto Ayala MD Work Phone: [facility] 09-10-2021 tetanus toxoid, redu raghu diphtheria toxoid, and acellular pertussis vaccine, adsorbed Filiberto Ayala MD Work Phone: [facility] 09-10-2021 varicella virus vaccine Arlin Ayala MD Work Phone: [facility] 02-16-2021 influenza, injectabl e, quadrivalent, preservative free Filiberto Ayala MD Work Phone: [facility] 07-07-2020 COVID-19 mRNA-1273 (Moderna) DO Heath Jacob Work Phone: [facility] 06-09-2020 COVID-19 mRNA-1273 (Moderna) DO Heath Jacob Work Phone: [facility] 03-18-2020 influenza, injectabl e, quadrivalent, preservative free Filiberto Ayala MD Work Phone: [facility] 04-05-2019 influenza virus vaccine, split virus (incl. purified surface antigen) Tyson Delgado Other [employer] Other 04-05-2019 influenza virus vaccine, unspecified formulation DO Heath Jacob Work Phone: [facility] 11-19-2018 zoster vaccine recombinant Filiberto Ayala MD Work Phone: [facility] 09-04-2018 zoster vaccine recombinant Filibreto Ayala MD Work Phone: [facility] 03-23-2018 influenza, injectabl e, quadrivalent, preservative free Filiberto Ayala MD Work Phone: [facility] 03-22-2018 Influenza, injectabl e, Madin Lauren Canine Kidney, preservative free, quadrivalent Filiberto Ayala MD Work Phone: [facility] 07-20-2017 influenza, injectabl e, quadrivalent, preservative free Filiberto Ayala MD Work Phone: [facility] 05-02-2016 influenza, injectabl e, quadrivalent, preservative free Filiberto Ayala MD Work Phone: [facility] 04-01-2013 tetanus and diphther ia toxoids, adsorbed, preservative free, for adult use (5 Lf of tetanus toxoid and 2 Lf of diphtheria toxoid) Tyson Delgado Other [facility] 04-07-2009 novel [id number], live virus for nasal administration Filiberto Ayala MD Work Phone: [facility] 05-23-2005 hepatitis B vaccine, pediatric or pediatric/adolescent dosage Filiberto Ayala MD Work Phone: [facility] 02-16-2005 hepatitis B vaccine, adult dosage Filiberto Ayala MD Work Phone: [facility] 01-12-2005 hepatitis B vaccine, adult dosage Filiberto Ayala MD Work Phone: [facility] Payers Date Payer Category Payer [facility] Health Insurance [facility] [id number] 1966 Unknown [id number] [id number]. 2.593 1966 Unknown [id number] [id number]. 2.593 1966 Unknown [id number] 2.16.840.1.049495.3.579. 2.593 1966 Unknown [id number] 2.16.840.1.601094.3.579. 2.593 1966 Unknown [id number] 2.16.840.1.601020.3.579. 2.593 1966 Unknown [id number] 2.16.840.1.362324.3.579. 2.593 1966 Unknown [id number] 2.16.840.1.236583.3.579. 2.1259 1966 Unknown [id number] 2.16.840.1.606268.3.579. 2.1259 1966 Unknown [id number] 2.16.840.1.651769.3.579. 2.1259 1959 Self-pay 1959 Unknown [id number] 1959 Unknown [id number] [id number] Unknown [id number] 2.16.840.1.542852.3.579. 2.593 Unknown [id number] 2.16.840.1.526463.3.579. 2.531 Unknown [id number] 2.16.840.1.977796.3.579. 2.531 Unknown [id number] [id number]. 2.531 Social History Date Type Detail Facility Unknown if ever smoked [facility] Other Start: 04-29-2023 End: 11-26-2024 Sex Assigned At [facility] Other Tobacco smoking status No Smokin g Status Entered [facility] [employer] Start: 05-11-2021 End: 06-09-2023 Tobacco smoking status DEIS Never smoked tobacco (finding) [facility] Start: 1965 Sex Assigned At Female [facility] Start: 04-29-2023 Tobacco use and exposure Smokeless tobacco non-user [facility] Start: 06-19-2023 End: 10-02-2024 Alcoholic beverage intake Current drinker of alcohol (finding) [facility] Start: 04-29-2023 End: 11-26-2024 History of Social function [facility] How often to you hav e a drink containing alcohol? 2-4 times a month [facility] How many standard dr inks containing alcohol do you have on a typical day? 1 or 2 [facility] How often do you hav e 6 or more drinks on 1 occasion? Never [facility] Start: 04-29-2023 Alcohol Comment caffeine: 1-2 cups per day coffee [facility] Start: 1965 Sex assigned at Not on file [facility] Start: 10-07-2024 Sex Female (finding) [facility] Within the last year , have you been afraid of your partner or ex-partner? No [facility] Do you belong to any clubs or organizations such as confucianist groups, unions, fraternal or athletic groups, or school groups? Yes [facility] Are you now , , , , never or living with a partner? [facility] How many standard dr inks containing alcohol do you have on a typical day? Patient does not drink [facility] Do you feel stress - tense, restless, nervous, or anxious, or unable to sleep at night because your mind is troubled all the time - these days [OSQ] Only a little [facility] (I/We) worried wheth er (my/our) food would run out before (I/we) got money to buy more. Never true [facility] Start: 12-02-2024 Alcoholic beverage intake Ex-drinker (finding) [facility] Functional Status Date Assessment Result Facility 12-01-2021 Functional Status N/A [facility] Clinical Notes 05-26-2017 to 12-02-2024 Filiberto Ayala MD - 12/02/2024 8:30 AM EDT Note Date & Type Note Facility 12-02-2024 History of Presen t illness Narrative Images from the original note were not included. Patient ID: Melody Torres is a 58 y.o. female who presents for: Review Results: Patient is here in the office today to review recent labs or diagnostic imaging with Dr Ace Ayala per his request. Based on the results they will also review treatment options. Please see labs scanned. Fatigue Is her primary complaint prompting her re-evaluation in restarting treatment. She Appears to be eating very healthy and getting regular exercise every morning. No visits with results within 1 Month(s) from this visit. Latest known visit with results is: Office Visit on 10/02/2024 Component Date Value Ref Range Status T3, TOTAL 11/12/2024 82 76 - 181 ng/dL Final T3 REVERSE, LC/MS/MS 11/12/2024 15 8 - 25 ng/dL Final Comment: This test was developed and its analytical performance characteristics have been determined by [facility] [place], [place]. It has not been cleared or approved by the U.S. Food and Drug Administration. This assay has been validated pursuant to the CLIA regulations and is used for clinical purposes. T3, FREE 11/12/2024 2.8 2.3 - 4.2 pg/mL Final T4, FREE 11/12/2024 1.3 0.8 - 1.8 ng/dL Final TSH 11/12/2024 0.77 0.40 - 4.50 mIU/L Final IRON, TOTAL 11/12/2024 117 45 - 160 mcg/dL Final IRON BINDING CAPACITY 11/12/2024 326 250 - 450 mcg/dL (calc) Final % SATURATION 11/12/2024 36 16 - 45 % (calc) Final Calculated THY Ratio: 5.5 Objective The patient is pleasant and in no acute distress The patient has good eye contact and clear speech Visit Vitals Ht 5' 4 Wt 120 lb BMI 20.60 kg/m OB Status Hysterectomy Smoking Status Never BSA 1.57 m Allergies Allergen Reactions Celecoxib GI upset [employer] Other Latex rash with gloves Nabumetone GI intolerance Other Other Sulfa Antibiotics Hives Sulfamethoxazole-Trimethoprim Hives Diclofenac Rash Wheat Rash Current Outpatient Medications on File Prior to Visit Medication Sig Dispense Refill DIGESTIVE ENZYMES PO Take 1 capsule by mouth in the morning and 1 capsule before bedtime. Probiotic Product (PROBIOTIC ADVANCED PO) Take 1 capsule by mouth Daily venlafaxine XR (Effexor XR) 75 MG 24 hr capsule Take 75 mg by mouth Daily Vevye 0.1 % solution INSTILL ONE DROP IN BOTH EYES TWICE DAILYAPPROXIMATELY 12 HOURS APART [DISCONTINUED] Hormone Cream Base (HRT Cream) cream 1 Application Daily No current facility-administered medications on file prior to visit. 1. Euthyroid sick syndrome recurrent chronic problem, unstable, not to goal, requiring complex clinical decision making. I reviewed the results of any; laboratories, ultrasound, and other labs as appropriate with the patient or their litigation claim representative. I discussed the patien'ts current psychosocial and physical condition and the stress impact upon them. I educated them as to the diagnoses, and that treatment for some of these may not be considered the standard of care, including TSH suppression when utilized. I reviewed the patient's current prescriptions and discussed the possibilities of medication adjustments or further treatment options. If new medication is prescribed, the main side effects and potential drug interactions were reviewed. They have been educated and instructed concerning the medications and the timing for taking them, the protocol itself, diet and exercise, and informed consent. See the scanned consent form and thyroid medication titration schedule for specific instructions. They have been instructed to follow up in 3 months and to bring a diet and exercise log, and the importance of follow up and compliance. The patient has also been adviced if they do not bring the diet and excercise log Multiple questions were answered. - liothyronine (Cytomel) 5 MCG tablet; Take 1 tablet in AM and 1 tablet in PM on an empty stomach. CORBY; Sigma or [employer] brands only Dispense: 180 tablet; Refill: 0 2. Chronic fatigue Recurrent Chronic problem, unstable, complex in nature with moderate decision making. I discussed with the patient or their litigation claim representative, their fatigue issues. We discussed how this is almost always chronic and by definition must have been in place for 6 weeks in order to be considered chronic fatigue. We discussed how this is almost always a multifactorial problem. We discussed that the patient will almost certainly need to make lifestyle changes including diet, sleep, exercise, and stress management. We further discussed how we will search for underlying disease processes and then support or treat them as appropriate. We discussed how we can frequently improve the symptoms, but may not be able to completely cure or resolve the issue. The patient was given a chance to ask questions and all questions were answered. - T3; Future - T3, reverse; Future - T3, free; Future - T4, free; Future - TSH; Future - T3 - T3, reverse - T3, free - T4, free - TSH 3. Adrenal cortex hypofunction (HCC) (Primary) She had this diagnosis previously. After discussion we have mutually agreed that once she has titrated to for full-dose she should consider adrenaPlex which is in adrenal support supplement. We have discussed that any supplements recommended have not undergone review or approval by the FDA and, therefore, have not been documented to be safe or effective to diagnose, treat, prevent, mitigate, or cure any condition or disease. documented in this encounter [facility] 11-15-2024 Evaluation note Diagnosis Onset Date Resolution Encounter for wellness examination acute November 15, 2024 11:27am TENZIN (generalized anxiety disorder) acute November 15, 2024 11:27am Primary osteoarthritis of left hip acute November 15, 2024 11:27am Screening mammogram for breast cancer acute November 15, 2024 11:27am Screening for colon cancer noneactive November 15, 2024 11:27am [facility] Work Phone: [phone]) 857-369904-30-2025 History of Present illness Narrative* Filiberto Ayala MD - 10/02/2024 3:00 PM EDT Images from the original note were not included. Patient ID: Melody Torres is a 58 y.o. female who presents for: Has not been seen in several years Pt states she used her HSA to purchase the Probiotic and the digestive enzymes and her insurance was telling her she needed a visit. She has a lot of food allergies and the supplements are the only thing that help her to continuously digest her food properly without a lot of issues. When she has flares up she gets bloated, constipation, skin issues, gas without eruption. Review of Systems Constitutional: Negative for chills and fever. Respiratory: Negative for cough, shortness of breath and wheezing. Cardiovascular: Negative for chest pain and palpitations. Gastrointestinal: Negative for abdominal pain, constipation, diarrhea, nausea and vomiting. Genitourinary: Negative for frequency and urgency. Neurological: Negative for light-headedness and headaches. Objective The patient is pleasant and in no acute distress The patient has good eye contact and clear speech Visit Vitals OB Status Hysterectomy Smoking Status Never Allergies Allergen Reactions Celecoxib GI upset [employer] Other Latex rash with gloves Nabumetone GI intolerance Other Other Sulfa Antibiotics Hives Sulfamethoxazole-Trimethoprim Hives Diclofenac Rash Wheat Rash Current Outpatient Medications on File Prior to Visit Medication Sig Dispense Refill DIGESTIVE ENZYMES PO Take 1 capsule by mouth in the morning and 1 capsule before bedtime. Hormone Cream Base (HRT Cream) cream 1 Application Daily Probiotic Product (PROBIOTIC ADVANCED PO) Take 1 capsule by mouth Daily venlafaxine XR (Effexor XR) 75 MG 24 hr capsule Take 75 mg by mouth Daily No current facility-administered medications on file prior to visit. 1. Other noninfectious gastroenteritis (Primary) Chronic, ongoing problem. Patient utilizes a combination of digestive enzymes and probiotics to help maintain these symptoms. She will need to continue these indefinitely. We recommend that EB complete and digestive enzymes 2. Gastrointestinal food allergy Avoidance of the allergic foods and digestive enzymes. 3. Bloating Part of her noninfectious gastroenteritis and food allergy symptoms. 4. Euthyroid sick syndrome She has previously had this diagnosis and with the fatigue and hair loss we are going to recheck levels. - T3; Future - T3, reverse; Future - T3, free; Future - T4, free; Future - TSH; Future - T3 - T3, reverse - T3, free - T4, free - TSH 5. Hair loss We will also recheck iron levels. - T3; Future - T3, reverse; Future - T3, free; Future - T4, free; Future - TSH; Future - Iron and TIBC; Future - T3 - T3, reverse - T3, free - T4, free - TSH - Iron and TIBC 6. Chronic fatigue Chronic problem, unstable, complex in nature with moderate decision making. I discussed with the patient or their litigation claim representative, their fatigue issues. We discussed how this is either not improved or not inadequately addressed. We discussed how this is almost always a multifactorial problem. We discussed that the patient willalmost certainly need to continue to make lifestyle changes including diet, sleep, exercise, and stress management as appropriate. We further discussed how we will continue to search for refinements in their current treatments or evaluation for further disease processes and then support or treat them as appropriate. We discussed how we can frequently improve the symptoms, but may not be able to completely cure or resolve the issue. The patient was given a chance to ask questions and all questions were answered. - T3; Future - T3, reverse; Future - T3, free; Future - T4, free; Future - TSH; Future - Iron and TIBC; Future - T3 - T3, reverse - T3, free - T4, free - TSH - Iron and TIBC 7. [place] This was not filled today at our office visit. I am however unable to remove this from today's office note. - Tretinoin (Altreno) 0.05 % lotion; Apply thin layer to face at bedtime Dispense: 45 g; Refill: 11 [id number] Evaluation note* Encounter Date Diagnosis Assessment Notes Treatment Notes Treatment Clinical Notes Jun, COVID-19 (ICD-10 - U07.1) Self isolate at home. - Cannot work - avoid contact with others - avoid pets - wipe counters, door knobs if touched - if can't avoid leaving home, must wear mask to protect others - need to stay isolated for 10 days from onset of symptoms - to discontinue isolation must be 5 days AND must be without fever for 24 hours AND symptoms must be improving. Always wear a mask in public places for complete 10 days Instructed to use Robitussin or Mucinex for cough, saline or Flonase NS for congestion, Tylenol for pain and fever. Jun, Mild intermittent asthma without complication (ICD-10 - J45.20) Increases risk of prolonged, serious infections [facility] Other 12-31-2023 Evaluation note* Encounter Date Diagnosis Assessment Notes Treatment Notes Treatment Clinical Notes May, TENZIN (generalized anxiety disorder) (ICD-10 - F41.1) [facility] Other 12-20-2023 Evaluation note* Encounter Date Diagnosis Assessment Notes Treatment Notes Treatment Clinical Notes May, Left hip pain (ICD-10 - M25.552) 57 year old female here for follow up status post left greater trochanteric bursa injection under fluoroscopic guidance. Patient reports 70-80% relief of pain to the posterior hip however feels that recent squatting weights at the gym has aggravated her pain and she continues to complain of hip pain today. I discussed different treatment options with the patient. She is encouraged to do more low-impact exercise to avoid aggrevating the hip joint. If her pain persists or worsens, we can consider a left hip and GT bursa injection in the future. May, Greater trochanteric bursitis of left hip (ICD-10 - M70.62) Continue with current treatment plan. May, Chronic pain (ICD-10 - G89.29) Follow up in 1 month. [facility] Other 12-04-2023 Evaluation note* Encounter Date Diagnosis Assessment Notes Treatment Notes Treatment Clinical Notes May, Left hip pain (ICD-10 - M25.552) 57 year old male here for follow up to discuss chronic pain. She voices continued complaints of left hip pain. I independently reviewed her recent left hip x-ray today which shows mild degenerative changes. Discussed with patient different treatment options, patient is a candidate for a left posterior hip +/- greater trochanteric bursa injection. Risks and benefits of procedure explained to patient; patient verbalizes understanding. May, Greater trochanteric bursitis of left hip (ICD-10 - M70.62) Proceed with hip injection. May, Chronic pain (ICD-10 - G89.29) Continue with current treatment plan [facility] Other 09-14-2023 Evaluation note* Encounter Date Diagnosis Assessment Notes Treatment Notes Treatment Clinical Notes Feb, Cervical spondylosis (ICD-10 - M47.812) In the future if the pain persists, we can consider proceeding with a right cervical facet MBB followed by a RFA if applicable under fluoroscopic guidance. Feb, Primary osteoarthritis of right shoulder (ICD-10 - M19.011) 57 year old female here for follow up to discuss chronic pain. She voices continued complaints of right shoulder pain, worse with increased activity. She also voices complaints of neck pain. She feels pain can negatively impacts her ADL and sleeping pattern. Different treatment options were discussed in detail with the patient, and I recommend we proceed with a steroid injection to the right AC joint under ultrasound guidance today in the office as scheduled. Risks and benefits of procedure explained to patient; patient verbalizes understanding. Feb, Cervical radiculopathy (ICD-10 - M54.12) Stable. Patient feels radicular symptoms are intermittent in nature Feb, Chronic pain (ICD-10 - G89.29) Continue with current treatment plan [facility] Other 07-14-2023 Evaluation note* Encounter Date Diagnosis Assessment Notes Treatment Notes Treatment Clinical Notes Dec, Cervical spondylosis (ICD-10 - M47.812) 57 year old female here for follow up to discuss chronic pain. She was last seen March 2020. She voices complaints of left sided neck and shoulder pain with radiation down the right arm to the fingertips. She notes last year she experienced atrophy to the outer aspect of the right upper extremity. I will order updated imaging of the cervical spine as well as the right shoulder. She is encouraged to follow up after her imaging is done to review it together and further assess his pain. Dec, Acute pain of right shoulder (ICD-10 - M25.511) Proceed with updated imaging. Dec, Chronic pain (ICD-10 - G89.29) Follow up after imaging. [facility] Other 06-26-2023 Evaluation note* Encounter Date Diagnosis Assessment Notes Treatment Notes Treatment Clinical Notes Nov, Cervical spondylosis (ICD-10 - M47.812) ROM exercises, ice/heat and Tylenol. Nov, Acute pain of right shoulder (ICD-10 - M25.511) ROM exercises, ice/heat and Tylenol. Complete PT Continue Massage NSAIDs as needed, Voltaren Gel as needed. Referral to Ortho? MRI ? Nov, Tendinitis of right rotator cuff (ICD-10 - M75.81) Subacromial injection w/o complications. Understands may worsen before improves. Rest and ice for next 48 hours. Nov, TENZIN (generalized anxiety disorder) (ICD-10 - F41.1) Healthy diet, exercise and keep active [facility] Other 04-13-2023 Evaluation note* Encounter Date Diagnosis Assessment Notes Treatment Notes Treatment Clinical Notes Sep, Mild intermittent asthma without complication (ICD-10 - J45.20) Stable w/o acute exacerbation Sep, Wellness examination (ICD-10 - Z00.00) Healthy diet and exercise. Reviewed age-appropriate preventive testing recommended. Sep, Subclinical hypothyroidism (ICD-10 - E03.8) Recheck labs, no treatment necessary Sep, Cervical spondylosis (ICD-10 - M47.812) ROM exercises, heat/ice Sep, Lumbar spondylosis (ICD-10 - M47.816) ROM exercises, heat/ice Sep, TENZIN (generalized anxiety disorder) (ICD-10 - F41.1) Healthy diet, exercise and keep active Sep, Heart murmur, systolic (ICD-10 - R01.1) Soft w/o radiation. Asymptomatic Continue to monitor Sep, Primary osteoarthritis of right shoulder (ICD-10 - M19.011) ROM exercises, ice/heat and Etodolac Sep, Dermatitis, dyshidrotic (ICD-10 - L30.1) Prednisone x 5 days then Triamcinolone ointment. [facility] Other 01-17-2023 Evaluation note* Encounter Date Diagnosis Assessment Notes Treatment Notes Treatment Clinical Notes Jun, TENZIN (generalized anxiety disorder) (ICD-10 - F41.1) [facility] Other 01-04-2023 Evaluation note* Encounter Date Diagnosis Assessment Notes Treatment Notes Treatment Clinical Notes Jun, Cough (ICD-10 - R05.9) Jun, Right otitis media, unspecified otitis media type (ICD-10 - H66.91) Jun, Bronchitis (ICD-10 - J40) Acute bronchitis material was printed [facility] Other 06-29-2022 Hospital Discharge instructions Patient Education 12/01/2021 09:30:23 Kidney Stones, Lhrt-lp-[id number] Kidney Stones Kidney stones are rock-like masses that form inside of the kidneys. Kidneys are organs that make pee (urine). A kidney stone may move into other parts of the urinary tract, including: The tubes that connect the kidneys to the bladder (ureters). The bladder. The tube that carries urine out of the body (urethra). Kidney stones can cause very bad pain and can block the flow of pee. The stone usually leaves your body (passes) through your pee. You may need to have a doctor take out the stone. What are the causes? Kidney stones may be caused by: A condition in which certain glands make too much parathyroid hormone (primary hyperparathyroidism). A buildup of a type of crystals in the bladder made of a chemical called uric acid. The body makes uric acid when you eat certain foods. Narrowing (stricture) of one or both of the ureters. A kidney blockage that you were born with. Past surgery on the kidney or the ureters, such as gastric bypass surgery. What increases the risk? You are more likely to develop this condition if: You have had a kidney stone in the past. You have a family history of kidney stones. You do not drink enough water. You eat a diet that is high in protein, salt (sodium), or sugar. You are overweight or very overweight (obese). What are the signs or symptoms? Symptoms of a kidney stone may include: Pain in the side of the belly, right below the ribs (flank pain). Pain usually spreads (radiates) to the groin. Needing to pee often or right away (urgently). Pain when going pee (urinating). Blood in your pee (hematuria). Feeling like you may vomit (nauseous). Vomiting. Fever and chills. How is this treated? Treatment depends on the size, location, and makeup of the kidney stones. The stones will often pass out of the body through peeing. You may need to: Drink more fluid to help pass the stone. In some cases, you may be given fluids through an IV tube put into one of your veins at the hospital. Take medicine for pain. Make changes in your diet to help keep kidney stones from coming back. Sometimes, medical procedures are needed to remove a kidney stone. This may involve: A procedure to break up kidney stones using a beam of light (laser) or shock waves. Surgery to remove the kidney stones. Follow these instructions at home: Medicines Take [id number] and prescription medicines only as told by your doctor. Ask your doctor if the medicine prescribed to you requires you to avoid driving or using heavy machinery. Eating and drinking Drink enough fluid to keep your pee pale yellow. You may be told to drink at least 8 10 glasses of water each day. This will help you pass the stone. If told by your doctor, change your diet. This may include: ?Limiting how much salt you eat. ?Eating more fruits and vegetables. ?Limiting how much meat, poultry, fish, and eggs you eat. Follow instructions from your doctor about eating or drinking restrictions. General instructions Collect pee samples as told by your doctor. You may need to collect a pee sample: ?24 hours after a stone comes out. ?8 12 weeks after a stone comes out, and every 6 12 months after that. Strain your pee every time you pee (urinate), for as long as told. Use the strainer that your doctor recommends. Do not throw out the stone. Keep it so that it can be tested by your doctor. Keep all follow-up visits as told by your doctor. This is important. You may need follow-up tests. How is this prevented? To prevent another kidney stone: Drink enough fluid to keep your pee pale yellow. This is the best way to prevent kidney stones. Eat healthy foods. Avoid certain foods as told by your doctor. You may be told to eat less protein. Stay at a healthy weight. Where to find more information National Kidney Foundation (NKF): www.kidney.org [facility] (UCF): www.urologyhealth.org Contact a doctor if: You have pain that gets worse or does not get better with medicine. Get help right away if: You have a fever or chills. You get very bad pain. You get new pain in your belly (abdomen). You pass out (faint). You cannot pee. Summary Kidney stones are rock-like masses that form inside of the kidneys. Kidney stones can cause very bad pain and can block the flow of pee. The stones will often pass out of the body through peeing. Drink enough fluid to keep your pee pale yellow. This information is not intended to replace advice given to you by your health care provider. Make sure you discuss any questions you have with your health care provider. Document Released: 11/07/2008 Document Revised: 10/08/2019 Document Reviewed: 10/08/2019 [employer] Patient Education 2020 [employer]. Follow Up Care 11/02/2021 13:36:15 With:Arun GUERRERO, HELGA MaldonadoL, URO Address: [address], [place] [address] [id number] When: Unknown [facility] 12-17-2021 Evaluation note* Encounter Date Diagnosis Assessment Notes Treatment Notes Treatment Clinical Notes May, Contact with and (suspected) exposure to other viral communicable diseases (ICD-10 - Z20.828) May, Viral upper respiratory illness (ICD-10 - J06.9) Drink plenty fluids, get plenty of rest. Take the prednisone as prescribed until gone. Use the albuterol inhaler as prescribed as needed for cough or shortness of breath. Tylenol Motrin for aches pains or fevers. Follow-up with your family physician if no improvement in 2 to 3 days May, Other Additional time spent conducting pre-visit phone call, screening for symptoms, instructions on social distancing, application and removal of PPE, and cleaning of examination room, equipment and supplies was preformed. Patient education given for testing methodology and results. Patient care instructions given in writting by [facility] document. [facility] Other 10-18-2021 Evaluation note* Encounter Date Diagnosis Assessment Notes Treatment Notes Treatment Clinical Notes Mar, Contact with and (suspected) exposure to other viral communicable diseases (ICD-10 - Z20.828) Today test was performed in office. Results are currently negative. That does not mean that you will not develop COVID or do not currently have a low viral count of COVID. The rapid test works best if symptoms have been over 72 hours and the results can vary if you are asymptomatic There is a higher chance of false negative results to occur if testing is performed too soon. It is recommended that even if results are negative and you have been exposed to someone that has COVID that you follow current CDC recommendations. These can be found at CDC.GOV. Follow up with primary care provider if symptoms persist or do not improve Mar, Other Additional time spent conducting pre-visit phone call, screening for symptoms, instructions on social distancing, application and removal of PPE, and cleaning of examination room, equipment and supplies was preformed. Patient education given for testing methodology and results. Patient care instructions given in writting by [facility] document. [facility] Other 12-22-2017 History general Narrative - Reported* Type Description Date Surgical History Surgical History abdominoplasty Surgical History back Surgical History right foot surgery 05/26/2017 Hospitalization History see above [facility] Other 12-22-2017 History general Narrative - Reported* Type Description Date Medical History celiac disease Surgical History Surgical History abdominoplasty Surgical History back Surgical History right foot surgery 05/26/2017 Hospitalization History see above [facility] Other Evaluation + Plan note No data available for this section [facility] evaluation noteNo InformationNort [facility] Other Evaluation noteNo assessment information available [facility] Work Phone: Evaluation note* Diagnosis Onset Date Resolution Status Encounter for wellness examination acute TENZIN (generalized anxiety disorder) acute Primary osteoarthritis of left hip acute Sprain of wrist, right acute Subclinical hypothyroidism a cute [facility] Work Phone: Evaluation note* Diagnosis Onset Date Resolution Status Viral URI with cough acute Left hip pain acute Low back pain acute Other chronic pain acute Piriformis syndrome of left side acute [facility] Work Phone: Evaluation note* Diagnosis Other noninfectious gastroenteritis- Primary Gastrointestinal food allergy Allergic gastroenteritis and colitis Bloating Flatulence, eructation, and gas pain Euthyroid sick syndrome Hair loss Unspecified alopecia Chronic fatigue Other malaise and fatigue [place]yt[place] documented in this encounter [facility]* Diagnosis Adrenal cortex hypofunction (HCC)- Primary Glucocorticoid deficiency Euthyroid sick syndrome Chronic fatigue Other malaise and fatigue documented in this encounter [facility] HealthcareHistory general Narrative - Reported* Type Description Date Medical History celiac disease Medical History Chronic pain Medical History Cervical disc disease Medical History Cervical spondylosis Medical History Shoulder pain Medical History Neoplasm of skin Medical History Arthritis Medical History Bilateral carpal tunnel syndrome Medical History Cubital tunnel syndrome, bilater al Medical History TENZIN (generalized anxiety disorde r) Medical History Seasonal allergies Medical History Lumbar spondylosis Medical History Subclinical hypothyroidism Medical History Alcohol abuse, uncomplicated Medical History MOSELEY (dyspnea on exertion) Medical History Asthma Surgical History Surgical History abdominoplasty Surgical History back Surgical History right foot surgery 05/26/2017 Surgical History REMOVAL OF OVARY(S) 2020 Hospitalization History see above [facility] Other Hospital Discharge instructions No data available for this section [facility] No data available for this section [facility] Summary Purpose Family History Relationship Condition Age at Onset Recorded Date/T vicente Not Specified Malignant neoplasm of ovary Unknown father Diabetes mellitus Unknown Heart disease Unknown Renal failure Unknown Malignant neoplasm of colon Unknown brother Myocardial infarction Unknown Relationship Condition Age at Onset Recorded Date/T vicente Not Specified Malignant neoplasm of ovary Unknown father Diabetes mellitus Unknown Heart disease Unknown Renal failure Unknown Malignant neoplasm of colon Unknown brother Myocardial infarction Unknown brother Heart disease Unknown Not Specified History of ovarian cancer Unknown Unknown Malignant neoplasm Unknown Relationship Condition Age at Onset Recorded Date/T vicente mother Malignant neoplasm of ovary Unknown father Diabetes mellitus Unknown Heart disease Unknown Renal failure Unknown Malignant neoplasm of colon Unknown brother Myocardial infarction Unknown brother Heart disease Unknown mother History of ovarian cancer Unknown Unknown Malignant neoplasm Unknown Advance Directives Advance Directive Response Recorded Date/ Time Advance Directives No March 15, 2017 5:19pm Advance Directive Response Recorded Date/ Time Advance Directives No March 15, 2017 4:19pm Chief Complaint and Reason for Visit Chief Complaint acute pain right alfreda ulder Chief Complaint acute pain right alfreda ulder M47.812 Chief Complaint M25.552 Chief Complaint Left Hip Pain M25.552 Follow Up After Xray Left Hip Follow Up After Left Posterior Hip Injec Wellness Reason for Visit Encounter for wellne ss examination TENZIN (generalized anxiety disorder) Primary osteoarthritis of left hip Sprain of wrist, right Subclinical hypothyroidism Chief Complaint Wellness allergy shot Reason for Visit Encounter for wellne ss examination TENZIN (generalized anxiety disorder) Primary osteoarthritis of left hip Sprain of wrist, right Subclinical hypothyroidism Chief Complaint allergy shot Cough, congestion Hip pain Reason for Visit Viral URI with cough Left hip pain Low back pain Other chronic pain Piriformis syndrome of left side Chief Complaint Admit Date Kenalog Shot October 07, 2024 8:57am Chief Complaint Admit Date wellness November 15, 2024 11:2 7am poss bee sting February 03, 2025 1:51pm Reason for Visit Admit Date Encounter for wellness examination November 15, 2024 11:27am TENZIN (generalized anxiety disorder) November 15, 2024 11:27am Primary osteoarthritis of left hip November 15, 2024 11:27am Screening mammogram for breast cancer 2024 11:27am Screening for colon cancer November 15 11:27am Additional Source Comments REASON FOR VISIT (unrecogniz ed section and content) Reason Comments Abdominal Pain Reason Comments Results Care Team (unrecognized sect ion and content) Team Status: Active Member Role Status Nu Jacob DO Primary Care Provider Active Team Status: Inactive Member Role Status Nu Jacob DO Primary Care Provider Active Tyson Delgado MD Attending Provider Active Team Status: Inactive Member Role Status Dates Tyson Delgado MD Attending Provider Active Sta rt: May 05, 2023 End: May 05, 2023 Team Status: Inactive Member Role Status Nu Jacob DO Primary Care Provider Active Start: May 05, 2023 End: May 05, 2023 Tyson Delgado MD Attending Provider Active Sta rt: May 05, 2023 End: May 05, 2023 Team Status: Inactive Member Role Status Dates Tyson Delgado MD Attending Provider Active Sta rt: May 08, 2023 End: May 08, 2023 Team Status: Inactive Member Role Status Dates Tyson Delgado MD Attending Provider Active Sta rt: May 24, 2023 End: May 24, 2023 Team Status: Active Member Role Status Dates Provider Conversion Attending Provider Active St art: June 09, 2023 Team Status: Inactive Member Role Status Dates Heath Jacob DO Primary Care Provide r, Attending Provider Active Start: July 28, 2023 End: July 28, 2023 Team Status: Active Member Role Status Dates Heath Jacob DO Primary Care Provide r, Attending Provider Active Start: August 26, 2023 Team Status: Inactive Member Role Status Dates Heath Jacob DO Primary Care Provide r, Attending Provider Active Start: October 03, 2023 End: October 03, 2023 Team Status: Inactive Member Role Status Dates Heath Jacob DO Primary Care Provider Active Start: October 04, 2023 End: October 04, 2023 Mitra Rich APRN Attending Provider Active Start: October 04, 2023 End: October 04, 2023 Team Status: Inactive Member Role Status Dates Haeth Jacob DO Primary Care Provider Active Start: December 15, 2023 End: December 15, 2023 Tyson Delgado MD Attending Provider Active Sta rt: December 15, 2023 End: December 15, 2023 Senior Benefits Manager Relationship Specialty Start Date End Date Heath Jacob DO PCP - General Internal Medicine 05/12/23 Team Status: Inactive Member Role Status Dates Heath Jacob DO Primary Care Provide r, Attending Provider Active Start: October 07, 2024 End: October 07, 2024 Senior Benefits Manager Relationship Specialty Start Date End Date Heath Jacob DO PCP - General Internal Medicine 05/12/23 Senior Benefits Manager Relationship Specialty Start Date End Date Heath Jacob DO PCP - General Internal Medicine 05/12/23 Senior Benefits Manager Relationship Specialty Start Date End Date Heath Jacob DO [address] [place] [address] PCP - General Internal Medicine 12/02/24 Team Status: Inactive Member Role Status Dates Heath Jacob DO Primary Care Provider Active Start: November 15, 2024 End: November 15, 2024 Heath Jacob DO Attending Provider Active Sta rt: November 15, 2024 End: November 15, 2024 Team Status: Inactive Member Role Status Dates Heath Jacob DO Primary Care Provider Active Start: February 03, 2025 End: February 03, 2025 Soumya Berumen , PETRA Attending Provider Active S tart: February 03, 2025 End: February 03, 2025 INFORMATION SOURCE (unrecogn ized section and content) DATE CREATED AUTHOR 12/11/2021 [facility] DATE CREATED AUTHOR AUTHOR'S ORGANIZ ATION 06/21/2022 [facility] DATE CREATED AUTHOR AUTHOR'S ORGANIZ ATION 11/11/2022 [facility] DATE CREATED AUTHOR AUTHOR'S ORGANIZ ATION 07/14/2023 [facility] DATE CREATED AUTHOR AUTHOR'S ORGANIZ ATION 11/19/2024 [facility] DATE CREATED AUTHOR AUTHOR'S ORGANIZ ATION 12/02/2024 [facility] Specialists EPIC Goals (unrecognized section and content) Goals may be documented in a n alternate section FOR RECORDS PERTAINING TO PATIENTS WHO ARE OR HAVE BEEN ENROLLED IN A CHEMICAL DEPENDENCY/SUBSTANCEABUSE PROGRAM, SOME INFORMATION MAY BE OMITTED. This clinical summary was aggregated from multiple sources. Caution should be exercised in using it in the provision of clinical care. This summary normalizes information from multiple sources, and as a consequence, information in this document may materially change the coding, format and clinical context of patient data. In addition, data may be omitted in some cases. CLINICAL DECISIONS SHOULD BE BASED ON THE PRIMARY CLINICAL RECORDS. [email or web address] provides no warranty or guarantee of the accuracy or completeness of information in this document.
--- OUTSIDE RECORDS SUMMARY | 2025-02-14 07:34 | XMS_ITS | Encounter Summary ---
Author Organization [facility] Address [address] [place] [address] Care Team Providers Care Lace Cutter Name Role Phone Cecil Heath Marty DO Primary Care Provider [phone] Heath Jacob DO Primary Care Provider [phone] Encounter Details Date Type Department Care Team (Late st Contact Info) Description 11/18/2024 Results Follow-Up [place] [id number] Family Medicine [address] [facility] [address] [place] [address] Filiberto Blue MD [address] [facility] [address] [place] [address] T3, T3, reverse, T3, free, Additional followed-up results: 3 Social History Tobacco Use Types Packs/Day Years [...] drinks on one occasion? Never 04/29/2023 Comments No Sex and Gender Information Value Date Recorded Sex Assigned at Not on file Legal Sex Female 6:39 PM EDT Gender Identity Not on file Sexual Orientation Not on file documented as of this encounter Miscellaneous Notes * Telephone Encounter - Filiberto Blue MD - 11/18/2024 7:19 AM EDT Notify the patient that her iron levels are good. However she does again have euthyroid sick syndrome. Her thyroid ratio is 5.6 with a normal range being 8-11. The standard of care is to not treat this syndrome. However in Integrative Medicine we can and if she would like she will need to come in for an office visit for this. documented in this encounter Plan of Treatment Upcoming Encounters Date Type Department Care Team (Late st Contact Info) Description 03/03/2025 8:00 AM EDT Office Visit [facility] [address] [place] [address] Filiberto Blue MD [address] [place] [address] 05/22/2025 3:15 PM EST Office Visit [facility] [address] [place] [address] Blanche Vu DO [address] [place] [address] documented as of this encounter Visit Diagnoses Not on filedocumented in this encounter Care Teams Lace Cutter Relationship Specialty Start Date End Date Heath Jacob DO PCP - General Internal Medicine 05/12/23 12/01/24 Heath Jacob DO [address] [facility] [place] [id number] PCP - General Internal Medicine 12/02/24 documented as of this encounter
--- OUTSIDE RECORDS SUMMARY | 2025-02-14 07:34 | XMS_ITS | Encounter Summary ---
Author Organization [facility] Address [facility] [place] [address] Care Team Providers Care Healthcare Social Worker Name Role Phone Heath Jacob DO Primary Care Provider [phone] Pcp, No Primary Care Provider Unavailabl e Source Comments In the event this information is protected by the Federal Confidentiality of Alcohol and Drug AbusePatient Records regulations: The Federal rules restrict any use of the information to criminally investigate or prosecute any alcohol or drug abuse patient.[facility] Encounter Details Date Type Department Care Team (Late st Contact Info) Description 10/12/2015 Get Medical Advice Pain Management [address] [place] [address] [place] [address] [place] [address] RE: Non-Urgent Medical Question Social History Tobacco Use Types Packs/Day Years Used Date Smoking Tobacco: Former Smokeless Tobacco: Never Alcohol Use Standard Drinks/Week Comments Yes 0 (1 standard drink = 0.6 oz pur e alcohol) 2-3 glasses weekly Comments No Sex and Gender Information Value Date Recorded Sex Assigned at Not on file Legal Sex Female 7:33 AM EST Gender Identity Not on file Sexual Orientation Not on file documented as of this encounter Miscellaneous Notes * Telephone Encounter - Genie Aviles RN - 10/13/2015 9:03 AM EDT Last office visit 07/31/15, /p LEFT L4 TFESI. 2) RTC PRN for an office visit with Dr. Ramsey. Appointment 10/23/15. Genie Aviles RN documented in this encounter Plan of Treatment Not on file documented as of this encounter Visit Diagnoses Not on filedocumented in this encounter Care Teams Healthcare Social Worker Relationship Specialty Start Date End Date Heath Jacob DO PCP - General 03/28/05 12/17/21 Pcp, No PCP - General 12/18/21 07/05/22 documented as of this encounter
--- OUTSIDE RECORDS SUMMARY | 2025-02-14 07:34 | XMS_ITS | Clinical Summary ---
Author Organization [facility] Address [address] [place] [address] Care Team Providers Care Client Advisor Name Role Phone Heath Jacob DO Primary Care Provider [phone] Allergies Active Allergy Reactions Criticality Noted Date Comments Celecoxib 03/29/2005 GI upset [place] Oil Other 05/08/2023 Diclofenac Rash Low 05/08/2023 Latex 03/29/2005 rash with gloves Nabumetone GI intolerance 05/08/2023 Other Other 05/08/2023 Sulfa Antibiotics Hives 03/13/2020 Sulfamethoxazole-Trimethopri m Hives 02/06/2015 Wheat Rash Low 05/08/2023 Medications venlafaxine XR (Effexor XR) 75 MG 24 hr capsule Take 75 mg by mouth Daily Active Probiotic Product (PROBIOTIC ADVANCED PO) Take 1 capsule by mouth Daily Active DIGESTIVE ENZYMES PO Take 1 capsule by mouth in the morning and 1 capsule before bedtime. Active Vevye 0.1 % solution INSTILL ONE DROP IN BOTH EYES TWICE DAILYAPPROXIMATELY 12 HOURS APART 11/19/19 Active liothyronine (Cytomel) 5 MCG tabletIndicati ons:Euthyroid sick syndrome Take 1 tablet in AM and 1 tablet in PM on an empty stomach. 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 Situational stress 09/26/2024 Lumbosacral radiculitis 07/31/2015 Encounters Date Type Department Care Team Description 12/02/2024 8:30 AM EDT Office Visit [facility] [address] [address] [place] [address] Filiberto Blue MD Adrenal cortex hypofunction (HCC) (Primary Dx); Euthyroid sick syndrome; Chronic fatigue 12/02/2024 Bamboo flowsheet [facility] [address] [place] [address] [place] [address] Filiberto Blue MD 12/02/2024 Travel 11/26/2024 Travel 11/19/2024 Telephone [facility] [address] [place] [address] [place] [address] Nusrat Hopkins RN Results 11/18/2024 Results Follow-Up [facility] [place] [address] [place] [address] Filiberto Blue MD T3, T3, reverse, T3, free, Additional followed-up results: 3 11/18/2024 Orders Only [facility] [address] [place] [address] [place] [address] Filiberto Blue MD from Last 3 Months Immunizations Immunization Administration Dates Next Due Hep B, Adolescent or Pediatric 05/23/2005 Hep B, adult 02/16/2005,01/12/2005 Influenza, Injectable, MDCK, preservative free 04/15/2024 Influenza, injectable, MDCK, preservative free, quadrivalent 03/22/2018 Influenza, injectable, quadr ivalent, preservative free 02/16/2021,03/18/2020,03/23/2018,2017,05/02/2016 Novel [id number], nasal 04/07/2009 Tdap 09/10/2021 Varicella 09/10/2021 Zoster, Recombinant 11/19/2018,09/04/2018 Family History Medical History Relation Name Comments Heart attack Brother Colon cancer Father Adria Christina father Diabetes Father Adria Christina father Heart disease Father Adria [place] father double bypass with aortic valve replacement Hypertension Father Adria guidry Stroke Maternal Grandmother grandmother Breast cancer Maternal Great-Grandmother Diabetes Mother Simi Christina mother Ovarian cancer Mother Simi Christina mother Stroke Mother Simi Christina mother Ovarian cancer Other Maternal 2nd cousin No Known Problems Sister No Known Problems Son Relation Name Status Comments Brother Father Adria Christina father Maternal Grandmother grandmother Maternal Great-Grandmother Mother Simi Christina mother Other Maternal 2nd cousin Sister Son Alive Social History Tobacco Use Types Packs/Day Years Used Date Smoking Tobacco: Never Smokeless Tobacco: Never Tobacco Cessation:Counseling Given: Yes Alcohol Use Standard Drinks/Week Comments Not Currently 0 (1 standard drink = 0.6 oz pure alcohol) caffeine: 1-2 cups per day coffee B1300 Health Literacy Answer Date Recor ded How often do you need to hav e someone help you when you read instructions, pamphlets, or other written material from your doctor or pharmacy? Never 11/26/2024 Humiliation, Afraid, Rape, and Kick questionnair e Answer Date Recorded Within the last year, have y ou been afraid of your partner or ex-partner? No 11/26/2024 Within the last year, have y ou been humiliated or emotionally abused in other ways by your partner or ex-partner? No Within the last year, have y ou been kicked, hit, slapped, or otherwise physically hurt by your partner or ex-partner? No 11/26/2024 Within the last year, have y ou been raped or forced to have any kind of sexual activity by your partner or ex-partner? No 11/26/2024 Social Connection and Isolat ion Panel [NHANES] Answer Date Recorded In a typical week, how many times do you talk on the phone with family, friends, or neighbors? Never 11/26/2024 How often do you get togethe r with friends or relatives? Once a week 11/26/2024 How often do you attend chur ch or latter-day services? More than 4 times per year 11/26/2024 Do you belong to any clubs o r organizations such as evangelical groups, unions, fraternal or athletic groups, or school groups? Yes 11/26/2024 How often do you attend meet ings of the clubs or organizations you belong to? More than 4 times per year 11/26/2024 Are you , , di vorced, , never , or living with a partner? 11/26/2024 AUDIT-C Answer Date Recorded Q1: How often do you have a drink containing alcohol? Never 11/26/2024 Q2: How many drinks containi ng alcohol do you have on a typical day when you are drinking? Patient does not drink Q3: How often do you have si x or more drinks on one occasion? Never 11/26/2024 Overall Financial Resource Strain (CARDIA) Answe r Date Recorded How hard is it for you to pa y for the very basics like food, housing, medical care, and heating? Not hard at all 11/26/2024 [facility] [place] of Occupat ional Health - Occupational Stress Questionnaire Answer Date Recorded Do you feel stress - tense, restless, nervous, or anxious, or unable to sleep at night because your mind is troubled all the time - these days? Only a little 11/26/2024 Exercise Vital Sign Answer Date Recorde d On average, how many days pe r week do you engage in moderate to strenuous exercise (like a brisk walk)? 5 days 11/26/2024 On average, how many minutes do you engage in exercise at this level? 60 min 11/26/2024 Hunger Vital Sign Answer Date Recorded Within the past 12 months, y ou worried that your food would run out before you got the money to buy more. Never true 11/27/19 25 Ran Out of Food in the Last Year Not on file 11/26/2024 PRAPARE - Transportation Answer Date Re corded In the past 12 months, has l ack of transportation kept you from medical appointments or from getting medications? No 11/04 In the past 12 months, has l ack of transportation kept you from meetings, work, or from getting things needed for daily living? No 11/26/2024 Housing Stability Vital Sign Answer Jairo e Recorded In the last 12 months, was t here a time when you were not able to pay the mortgage or rent on time? No 11/26/2024 Number of Times Moved in the Last Year Not on fi le 11/26/2024 At any time in the past 12 m [facility], were you homeless or living in a half-way (including now)? No 11/26/2024 Comments No Sex and Gender Information Value Date Recorded Sex Assigned at Not on file Legal Sex Female 6:39 PM EDT Gender Identity Not on file Sexual Orientation Not on file Last Filed Vital Signs Vital Sign Reading Time Taken Comments Blood Pressure 118/70 05/12/2023 9:54 AM EST Pulse - - Temperature - - Respiratory Rate - - Oxygen Saturation - - Inhaled Oxygen Concentration - - Weight 54.4 kg (120 lb) 12/02/2024 8:34 AM EDT Height 162.6 cm (5' 4 ) 12/02/2024 8:34 AM EDT Body Mass Index 20.6 12/02/2024 8:34 AM EDT Plan of Treatment Upcoming Encounters Date Type Department Care Team (Late st Contact Info) Description 03/03/2025 8:00 AM EDT Office Visit [facility] [address] [address] Filiberto Blue MD 112 [facility] [address] [place] [address] 05/22/2025 3:15 PM EST Office Visit [facility] [address] [facility] [address] [place] [phone] Blanche Vu DO [address] [facility] [address] [place] [address] Health Maintenance Due Date Last Done Comments CT Colonography 1966 Colonoscopy 1966 Colorectal Cancer Screening 1966 FIT-DNA 1966 FIT 1966 FOBT 1966 Sigmoidoscopy 1966 Pap Smear 12/11/1987 Influenza Vaccine (#1) 2025 , 02/16/2021, 03/18/2020, Additional history exists Mammogram 08/02/2025 08/02/2024, 06/05, 06/17/2022, Additional history exists Cervical Cancer Screening 05/12/2028 HPV/Cotest 05/12/2028 05/12/2023, 11/0 09/2021, 03/20/2021, Additional history exists Procedures Procedure Name Priority Date/Time Associated Diagnosis Comments BI MAMMOGRAM SCREENING TOMOSYNTHESIS BILATERAL Routine 08/02/2024 12:51 PM EST Encounter for screening mammogram for breast cancer THINPREP IMAGING PAP W/REFL HPV MRNA E6/E7 Routine 05/12/2023 11:10 AM EST Encounter for screening for malignant neoplasm of vagina from Last 3 Months or Most Recently Relevant to Health Maintenance Results * Bilateral screening mammogram with tomosynthesis (08/02/2024 12:51 PM EST) Anatomical Region Laterality Modality Breast Bilateral Mammography 08/03/2024 2:18 PM EST Impressions 08/03/2024 2:27 PM EST Impression: No specific evidence of malignancy seen in either breast. BIRADS 2 - Benign Findings DENSITY: The breasts are heterogeneously dense, which may obscure small masses. FOLLOW-UP: Routine Screening Mammogram ELECTRONICALLY SIGNED BY: Bill Almanzar M.D. Narrative 08/03/2024 2:27 PM EST Examination: BI MAMMOGRAM SCREENING TOMOSYNTHESIS BILATERAL Clinical [...] on the right and appears grossly unremarkable. Procedure Note Bill Almanzar MD - 08/03/2024 Examination: BI MAMMOGRAM SCREENING TOMOSYNTHESIS BILATERAL Clinical History: Breast Cancer Screening Technique: Screening digital mammography study of both breasts wasperformed with 2-D and 3-D tomosynthesis imaging. Study was compared tothe prior exam dated 06/19/2023. Findings: There is no evidence of interval dominant spiculated mass,grouped microcalcifications, or skin thickening which would be suggestiveof malignancy. A few benign-appearing calcifications are seen bilaterally. A partiallyvisualized axillary lymph node is suggested on the right and appearsgrossly unremarkable. IMPRESSION: Impression: No specific evidence of malignancy seen in either breast. BIRADS 2 - Benign Findings DENSITY: The breasts are heterogeneously dense, which may obscure smallmasses. FOLLOW-UP: Routine Screening Mammogram ELECTRONICALLY SIGNED BY: Bill Almanzar M.D. us Blanche Vu DO IMG BI PROCEDURES Final Res ult * THINPREP IMAGING PAP W/REFL HPV MRNA E6/E7 (05/12/2023 11:10 AM EST) CLINICAL INFORMATION [facility] Comment:None given LMP [facility] Comment:HYST PREV. PAP [facility] Comment:NONE GIVEN PREV. BX [facility] Comment:NONE GIVEN SOURCE [facility] Comment:Vagina STATEMENT OF ADEQUACY [facility] Comment:SATISFACTORY FOR GRETCHEN LUATION INTERPRETATION/RESUL T [facility] Comment: Cytology Results: Negative for intraepithelial lesion or malignancy. COMMENT [facility] Comment: This Pap test has been evaluated with computer assisted technology. DISTRICT COMMERCIAL SUPERINTENDENT [facility] Comment: NNO, CT(ASCP) CT screening location: [facility], [address] [place] [address], [place] [address]. (ALWAYS MESSAGE) [facility] Comment: EXPLANATORY NOTE: The Pap is a screening test for cervical cancer. It is not a diagnostic test and is subject to false negative and false positive results. It is most reliable when a satisfactory sample, regularly obtained, is submitted with relevant clinical findings and history, and when the Pap result is evaluated along with historic and current clinical information. Vaginal Fluid 05/12/2023 11: 10 AM EST 05/13/2023 3:21 AM EST Narrative Resulting Agency Comment Performing Organization Information Site ID: [id number] Name: [facility] Address: [address] [place] [address], [address] [place] [id number] Director: Chago Rodriguez MD us Blanche Vu DO LAB CYTOLOGY ORDERABLES Fin al Result [facility] from Last 3 Months or Most Recently Relevant to Health Maintenance Insurance [employer] Care Teams Client Advisor Relationship Specialty Start Date End Date Heath Jacob DO [address] [place] [phone] PCP - General Internal Medicine 12/02/24
--- OUTSIDE RECORDS SUMMARY | 2025-02-14 07:34 | XMS_ITS | Encounter Summary ---
Author Organization [facility] Address [address] [place] [address] Care Team Providers Care Hospital Security Officer Name Role Phone Heath Jacob DO Primary Care Provider [phone] Heath Jacob DO Primary Care Provider [phone] Encounter Details Date Type Department Care Team (Late Contact Info) Description 05/02/2023 Abstract [facility] [place] [facility] [address] [facility] [address] [place] [phone] Blanche Vu DO [address] [facility] [place] [address] [place] [address] Social History Tobacco Use Types Packs/Day Years [...] EDT Office Visit [facility] [address] [place] [address] [address] [place] [address] Filiberto Blue MD 112 [facility] [address] [place] [address] 05/22/2025 3:15 PM EST Office Visit [facility] [address] [place] [address] [place] [address] Blanche Vu DO [address] [place] [address] [place] [address] documented as of this encounter Visit Diagnoses Not on filedocumented in this encounter Care Teams Hospital Security Officer Relationship Specialty Start Date End Date Heath Jacob DO PCP - General Internal Medicine 05/12/23 12/01/24 Heath Jacob DO [address] [place] [address] PCP - General Internal Medicine 12/02/24 documented as of this encounter
--- OUTSIDE RECORDS SUMMARY | 2025-02-14 07:34 | XMS_ITS | Encounter Summary ---
Author Organization [facility] Address [address] [place] [address] Care Team Providers Care Matrix Supervisor Name Role Phone Heath Jacob DO Primary Care Provider [phone] Heath Jacob DO Primary Care Provider [phone] Encounter Details Date Type Department Care Team (Late Contact Info) Description 11/18/2024 Orders Only [facility] [address] [address] Filiberto Blue MD 112 [facility] 100 [place] [address] Social History Tobacco Use Types Packs/Day Years [...] Visit [facility] 112 [facility] [address] [place] [address] Filiberto Blue MD 112 [facility] [address] [place] [address] 05/22/2025 3:15 PM EST Office Visit [facility] [place] [facility] [address] [place] [address] [place] [address] Blanche Vu DO [address] [place] [address] [place] [address] documented as of this encounter Visit Diagnoses Not on filedocumented in this encounter Care Teams Matrix Supervisor Relationship Specialty Start Date End Date Heath Jacob DO PCP - General Internal Medicine 05/12/23 12/01/24 Heath Jacob DO [address] [place] [address] PCP - General Internal Medicine 12/02/24 documented as of this encounter
--- OUTSIDE RECORDS SUMMARY | 2025-02-14 07:34 | XMS_ITS | Clinical Summary ---
Author Organization [facility] Address [address] [place] [address] Care Team Providers Care Health Companion Name Role Phone Unavailable Primary Care Provider Unavailabl e Allergies Active Allergy Reactions Criticality Noted Date Comments Sulfamethoxazole-Trimethoprim Hives 2014 Celecoxib 03/29/2005 GI upset Latex 03/29/2005 rash with gloves Medications MULTIVITAMIN TAB Take one(1) tablet daily. 0 03/29/2005 Active FOLIC ACID 400 MCG TAB 0 03/29/2005 Active OS-KARLI 500 + D 500 MG-125 UNIT TAB Take one(1) tablet daily. 0 03/29/2005 Active ALPRAZolam (XANAX) 1 mg tablet Take 1 mg by mouth at bedtime as needed. Active glucosam-chondr uji-R-mjbnpvwjo 414-504-72-3 mg cap Take by mouth. Active Diclofenac Sodium (VOLTAREN) 1 % gel Apply 1 g to affected area three times daily. As Directed. 1 Tube 2 02/06/2015 Active nortriptyline (PAMELOR) 10 mg capsule Take 1 capsule by mouth daily at bedtime. 30 capsule 0 04/24/2015 Active Active Problems Problem Noted Date Diagnosed Date Lumbosacral radiculitis 07/31/2015 Family History Medical History Relation Comments Hypertension Brother Diabetes Father Hypertension Father Cancer Mother Relation Status Comments Brother Father Alive Mother Social History Tobacco Use Types Packs/Day [...] Sign Reading Time Taken Comments Blood Pressure 125/72 07/31/2015 11:51 AM EST Pulse 66 07/31/2015 11:51 AM EST Temperature 37 C (98.6 F) 07/31/2015 11:51 AM EST Respiratory Rate 16 07/31/2015 11:51 AM EST Oxygen Saturation 100% 07/31/2015 11:51 AM EST Inhaled Oxygen Concentration - - Weight 56.7 kg (125 lb) 07/31/2015 11:51 AM EST Height 162.6 cm (5' 4 ) 05/22/2015 1:35 PM EST Body Mass Index 21.46 05/22/2015 1:35 PM EST Plan of Treatment Health Maintenance Due Date Last Done Comments Anxiety Screening 1984 Depression Screening 1984 HIV Screening 1984 Hepatitis C Screening 1984 DTaP,Tdap,Td Vaccine (1 - Tdap) 1985 Hepatitis B Vaccine (1 of 3 - 19+ 3-dose series) 12/10 Cervical Cancer Screening 12/11/[address] Colonography 12/11/2011 Cologuard (FIT-DNA) 12/11/2011 Colonoscopy 12/11/2011 Colorectal Cancer Screening 12/11/2011 Diabetes Screening 12/11/2011 Fecal Occult Blood 12/11/2011 Lipid Screening 12/11/2011 Sigmoidoscopy 12/11/2011 Pneumococcal Vaccine: 50+ (1 of 1 - PCV) 2016 Shingrix Vaccine (1 of 2) 2016 Influenza Vaccine (#1) 2025
[2025-02-14 07:54] LABS: Hematocrit 41.0 % (36.0-48.0); Hemoglobin 13.8 g/dL (12.0-16.0); Immature Granulocytes Abs Auto 0.00 10^3/uL (0.00-0.03); Immature Granulocytes Pct Auto 0.0 % (0.0-0.5); Lymphocytes Absolute Auto 2.4 10^3/uL (1.2-3.8); Mean Corpuscular HGB Conc 33.7 g/dL (29.9-35.2); Mean Corpuscular Hemoglobin 31.5 pg (26.7-34.0); Mean Corpuscular Volume 93.6 fL (81.0-99.0); Platelet Count 264 10^3/uL (150-450); Red Blood Count 4.38 10^6/uL (4.20-5.40); White Blood Count 5.8 10^3/uL (4.0-11.0)
[2025-02-14 09:25] LABS: Alanine Aminotransferase 26 U/L (14-59); Albumin Globulin Ratio 1.3; Albumin Level 3.9 g/dL (3.4-5.0); Alkaline Phosphatase 57 U/L (46-116); Anion Gap 12.1; Aspartate Amino Transferase 13 U/L (15-37); Blood Urea Nitrogen 33.0 mg/dL (7.0-18.0); Calcium 9.7 mg/dL (8.5-10.1); Carbon Dioxide 28.5 mmol/L (21.0-32.0); Chloride 103 mmol/L (98-107); Cholesterol 200 mg/dL (<=200); Estimated GFR (African America >60 (>=60 mL/min/1.73m^2); Estimated GFR (Non-African Ame >60 (>=60 mL/min/1.73m^2); Globulin 3.0 g/dL; Glucose 79 mg/dL (74-106); HDL Cholesterol 106 mg/dL (40-60); Potassium 4.6 mmol/L (3.5-5.1); Sodium 139 mmol/L (136-145); Thyroid Stimulating Hormone 0.413 uIU/mL (0.358-3.740); Total Protein 6.9 g/dL (6.4-8.2); Triglycerides 29 mg/dL (<=150); VLDL CHOLESTEROL 5.8 mg/dL
== END 2025-02-14 07:33 | disposition home or self-care (01) ==
LOC: LAB 07:32
PROVIDERS: PCP Internal Medicine; Visit Provider Internal Medicine
DX: Z00.00 Encounter for general adult medical examination without abnormal findings (principal)
CPT/HCPCS: 36415; 80053; 80061; 84443; 85025